=== PATIENT | male | born 1955 | race Caucasian/White ===

== ENCOUNTER → 2017-07-22 | Outpatient (CLI) | payer BC ==
[~2017-07-22] MED LIST: ALBU17AE23 IH; ASPI-84 PO; AZIT-21 PO; BENZ200C3 PO; CEFP250T2 PO; FOLI1TAB24 PO; LORA10CA PO; METH2.5T PO; NF-DICLTB PO; PNT40TEC PO; PRCD5U PO; SUCR1TAB23 PO; TRIA1CAP4 PO
--- NOTE | 2017-07-22 13:26 | Diagnostic Imaging Report ---
EXAMINATION: Left knee radiographs, three views. COMPARISON: None. HISTORY: 61-year-old male, left knee pain. FINDINGS: There is mild patellofemoral compartment joint space loss with small patellofemoral compartment osteophytes. There is no left knee joint effusion. The medial and lateral compartments are not significantly narrowed. There is a well-corticated ossification adjacent to the superior and lateral aspect of the patella compatible with chronic long-standing etiology. There is no identified acute fracture. There is minimal degenerative type enthesopathy at the patellar tendon origin. There is no identified radiopaque foreign body. IMPRESSION: 1. Mild patellofemoral compartment osteoarthritis. 2. No left knee joint effusion or acute bone abnormality. Dictated by: Dictated on workstation # [id number]
== END ==
LOC: RAD 12:47
PROVIDERS: ATTEND Internal Medicine
DX: M17.12 Unilateral primary osteoarthritis, left knee (principal)
CPT/HCPCS: 73562

== ENCOUNTER → 2017-08-11 | Outpatient (CLI) | payer BC ==
--- NOTE | 2017-08-11 09:54 | Diagnostic Imaging Report ---
PROCEDURE: MRI left joint lower extremity with and without contrast. TECHNIQUE: Multiplanar, multisequence pre and post contrast-enhanced MRI of the left lower extremity was accomplished. INDICATION: Knee pain There are no previous MRI examinations available for comparison. The plain film examination of the left knee performed on 07/22/2017 failed to show any sign of an acute bony abnormality. On the coronal STIR series of this exam there is diffusely increased signal throughout the medial femoral condyle. This does suggest extensive bone edema. There is also a small area of altered signal in the immediate subarticular region of the midportion of the medial femoral condyle. I suspect that this is an osteochondral injury. Furthermore the posterior horn and midportion of the medial meniscus have an irregular appearance consistent with a tear. The medial collateral ligament itself is also somewhat indistinct and may be partially torn. For the most part however the MCL appears to be intact. There is also soft tissue edema about the medial aspect of the medial femoral condyle. There is a small joint effusion as well. There are areas of altered signal within the anterior and posterior horns of the lateral meniscus. These signal abnormalities involving the anterior horn of the lateral meniscus is in close proximity to the inferior articular surface of the meniscus and I suspect that this does represent a tear. There is no clear evidence for an articular surface ter of the posterior horn however. The anterior and posterior cruciate ligaments, quadriceps and infrapatellar tendons, the fibular collateral ligament, the biceps femoris tendon and the iliotibial band are intact. There is no sign of a tear of either the medial or lateral retinaculum. The knee joint is fairly well-maintained. There is a small joint effusion present. There is also a 7 MM area diminished signal within the fluid near the attachment of the low lateral retinaculum to the patella. I suspect that this is a small loose body. IMPRESSION: 1. There is a prominent area of bone edema involving the medial femoral condyle. Most likely this is related to a subacute osteochondral injury. 2. The midportion of the posterior horn of the medial meniscus are torn and there appears to a small partial tear of the medial collateral ligament. There is also generalized soft tissue edema in this area. 3. The anterior horn of the lateral meniscus is also torn. 4. The other major ligaments and tendons are intact. 5. There is a small joint effusion present and there is a 6 MM loose body in the lateral aspect of the knee joint. Dictated by: Dictated on workstation # [id number]
== END ==
LOC: RAD 08:09
PROVIDERS: ATTEND Internal Medicine
DX: S83.242A Other tear of medial meniscus, current injury, left knee, initial encounter (principal); S83.282A Other tear of lateral meniscus, current injury, left knee, initial encounter; M17.12 Unilateral primary osteoarthritis, left knee
CPT/HCPCS: 73723

== ENCOUNTER → 2019-03-18 | Outpatient (CLI) | payer MEDICARE, OTHER ==
--- NOTE | 2019-03-18 13:05 | Diagnostic Imaging Report ---
INDICATION: Right hip pain COMPARISON: None. FINDINGS: 2 views of the right hip were obtained and show no fractures, dislocations, or other acute bony abnormalities. Joint spaces are well maintained throughout. The soft tissues appear unremarkable. No radiopaque foreign bodies are identified. IMPRESSION: Unremarkable radiographic exam of the right hip. Dictated by: Dictated on workstation # [id number]
== END ==
LOC: RAD 12:30
PROVIDERS: ATTEND Internal Medicine
DX: M25.551 Pain in right hip (principal)
CPT/HCPCS: 73502

== ENCOUNTER → 2019-05-27 | Outpatient (CLI) | payer MEDICARE, OTHER ==
[~2019-05-27] MED LIST changes: +ASPI-586 PO; +CLOB15CR2 TP; +DICL75TA2 PO; +INDO50CA11 PO; +LORA10TA7 PO; +LOSA50TA63 PO; +PANT40TA3 PO; +POLY17PO6 PO; +SILD20TA14 PO; +ZOLP10TA PO
--- NOTE | 2019-05-27 10:52 | Diagnostic Imaging Report ---
PROCEDURE: MR imaging of the brain without contrast. TECHNIQUE: Multiplanar, multisequence MR imaging of the brain was performed without contrast. INDICATION: Headaches. FINDINGS: The ventricles and sulci are within normal limits. There is mild periventricular and subcortical white matter signal abnormality consistent with chronic microvascular ischemia. No diffusion restriction is seen to suggest acute ischemia. The normal expected flow-voids within the carotid siphons are seen. No acute intra-axial or extra-axial hemorrhage is detected. Corpus callosum is unremarkable. Sella and parasellar structures are unremarkable. There does appear to be some mucosal thickening and fluid in the right maxillary sinus. IMPRESSION: 1. Changes of chronic microvascular ischemia. No acute intracranial process is detected. 2. Right maxillary sinus mucosal disease. Dictated by: Dictated on workstation # [id number]
== END ==
LOC: RAD 09:08
PROVIDERS: ATTEND Internal Medicine
DX: I67.82 Cerebral ischemia (principal); J32.0 Chronic maxillary sinusitis; G47.33 Obstructive sleep apnea (adult) (pediatric); I10 Essential (primary) hypertension
CPT/HCPCS: 70551

== ENCOUNTER 2019-06-01 05:31 | Outpatient (CLI) | payer MEDICARE, OTHER ==
[~2019-06-01] VITALS: Ht 165 cm; Wt 97.7 kg
[~2019-06-01 05:31] MED LIST changes: -ASPI-586 PO; -CLOB15CR2 TP; -DICL75TA2 PO; -INDO50CA11 PO; -LORA10TA7 PO; -LOSA50TA63 PO; -PANT40TA3 PO; -POLY17PO6 PO; -SILD20TA14 PO; -ZOLP10TA PO
[2019-06-01] MEDS ORDERED: CEFP250T2 PO (10:58)
[2019-06-01] MEDS ORDERED: DICL75TA2 PO (10:58)
[2019-06-01] MEDS ORDERED: LORA10TA7 PO (10:58)
[2019-06-01] MEDS ORDERED: ZOLP10TA PO (10:58)
[2019-06-01] MEDS ORDERED: PANT40TA3 PO (10:58)
[2019-06-01] MEDS ORDERED: LOSA50TA63 PO (10:58)
[2019-06-01] MEDS ORDERED: ASPI-586 PO (10:58)
[2019-06-01] MEDS ORDERED: INDO50CA11 PO (10:58)
[2019-06-01] MEDS ORDERED: SILD20TA14 PO (10:58)
[2019-06-01] MEDS ORDERED: CLOB15CR2 TP (10:58)
[2019-06-01] MEDS ORDERED: POLY17PO6 PO (11:03)
== END 2019-06-01 11:08 | disposition home or self-care (01) ==
LOC: PREOP 05:31
PROVIDERS: ATTEND Surgery
DX: Z01.818 Encounter for other preprocedural examination (principal)

== ENCOUNTER 2019-06-08 08:44 | Day surgery (SDC) | payer MEDICARE, OTHER ==
[2019-06-08] VITALS (9 sets, daily range): BP systolic 115–152; BP diastolic 59–86
[~2019-06-08] VITALS: Ht 165 cm; Wt 97.7 kg
[~2019-06-08 08:44] MED LIST changes: +ASPI-586 PO; +CLOB15CR2 TP; +DICL75TA2 PO; +INDO50CA11 PO; +LORA10TA7 PO; +LOSA50TA63 PO; +PANT40TA3 PO; +POLY17PO6 PO; +SILD20TA14 PO; +ZOLP10TA PO
[2019-06-08] MEDS ORDERED: LACTATED RINGERS 1,000 ML IV STA (08:53)
[2019-06-08] MEDS ORDERED: LACTATED RINGERS 1,000 ML IV ONE (08:54)
[2019-06-08] MEDS ORDERED: PROPOFOL INJECTION 50 ML IV ONE (08:54)
[2019-06-08] MEDS ORDERED: MIDAZOLAM 2 MG/2 ML (VERSED) VIAL ONE (08:54)
[2019-06-08] MEDS ORDERED: HURRICAINE EXT TUBE (BENZOCAINE) XX PRN (09:00)
--- NOTE | 2019-06-08 10:18 | Progress Note-Post Operative ---
Post-Operative Progess Note Surgeon (s)/Software Tester (s) Surgeon CESAR DE GUZMAN DO Software Tester: na Pre-Operative Diagnosis dysphagia, history of polyps Post-Operative Diagnosis minimal hiatal hernia, barrets esophagus, diverticulosis Procedure & Operative Findings Date of Procedure 06/08/19 Procedure Performed/Findings EGD with biopsies and colonoscopy Anesthesia Type per practicing md anesthesiologist Estimated Blood Loss Estimated blood loss (mL): none Specimens/Packing Specimens Removed biopsies of antrum and GE junction CESAR DE GUZMAN DO Jun 08, 2019 10:18 POS
[2019-06-08] MEDS ORDERED: SUCR1TAB36 PO (10:19)
--- NOTE | 2019-06-08 10:22 | Discharge Inst-Simple/Standard ---
Discharge Inst-Standard Discharge Medications New, Converted or Re-Newed RX: Transmitted to Pharmacy Patient Instructions/Follow Up Plan of Care/Instructions/FU: follow up in clinic in 2 weeks to review pathology report. If any concerns before then, will be seen at that time. Repeat colonoscopy in 5 years. Activity as Tolerated: Yes Discharge Diet: Regular Diet CESAR DE GUZMAN DO Jun 08, 2019 10:22 POS
--- NOTE | 2019-06-08 15:43 | OPERATIVE REPORT ---
DATE OF SERVICE: 06/08/2019 PREOPERATIVE DIAGNOSIS: Dysphagia, history of colon polyps. POSTOPERATIVE DIAGNOSIS: Very minimal hiatal hernia, suspect Caceres's esophagus, diverticulosis. PROCEDURE: EGD with biopsies and colonoscopy. SURGEON: Cesar Tamez DO ANESTHESIA: Per FACILITIES LOCATOR. ESTIMATED BLOOD LOSS: None. COMPLICATIONS: None. INDICATIONS: The patient is a 63-year-old male with some dysphagia and history of colon polyps. He understands risks and benefits of procedure and wished to proceed with procedure. Consent was signed in the chart. DESCRIPTION OF PROCEDURE: The patient was taken to the endoscopy suite, placed in left lateral recumbent position. Timeout was performed. Scope was inserted in mouth, down the esophagus, stomach and into the duodenum without difficulty. There were no polyps, mass, ulceration of the duodenum. Scope was slowly retracted back into the stomach where it was further insufflated. Some erythematous changes present. Biopsy of the antrum was obtained. Scope was retroflexed noting evidence of previous wrap very minimal hiatal hernia. No other pathology noted. Scope was returned to its normal position, slowly withdrawn to the distal esophagus, which has appearance of some Caceres's esophagus. Multiple biopsies were obtained of this area. No polyps, masses or ulcerations. Scope was then slowly retracted back slowly until completely removed, noting no other pathology. The patient tolerated procedure well without any complications. Digital rectal exam was then performed. There were no palpable polyps, masses or ulcerations. Scope was inserted into the rectum and advanced all the way to cecum with minimal difficulty. Prep was adequate. Scope was slowly retracted back. No polyps, masses or ulcerations in the cecum, ascending, transverse and descending colon. In the sigmoid colon, some minimal to moderate diverticulosis present. Scope was then continuously slowly retracted back into the rectum, where it was also retroflexed noting no other pathology. Scope was returned to its normal position, slowly withdrawn until completely removed. The patient tolerated procedure well without any complications, taken to recovery room in stable condition. RECOMMENDATIONS: The patient will need a repeat colonoscopy in 5 years. Any issues before that be seen at that time. Recommended high fiber diet due to diverticulosis. The patient with appearance of some Caceres's esophagus. Multiple biopsies were obtained. We will plan awaiting biopsy results. We will also keep him on pantoprazole and add Carafate 1 gram four times a day. The patient will follow up in the office in 2 weeks to see how he is doing and review pathology. Job ID: [id number] DocumentID: [id number] Dictated Date: 06/08/2019 10:21:48 Slasher Tender Date: 06/08/2019 15:42:16 Dictated By: CESAR TAMEZ DO
--- NOTE | 2019-06-10 15:00 | Anesthesia-General Post-Op ---
MAC Patient Condition Mental Status/LOC: Same as Preop Cardiovascular: Satisfactory Nausea/Vomiting: Absent Respiratory: Satisfactory Pain: Controlled Complications: Absent Post Op Complications Complications None Follow Up Care/Instructions Patient Instructions None needed. Anesthesiology Discharge Order Discharge Order late entry form 06/08/19 at 1205: Patient is doing well, no complaints, stable vital signs, no apparent adverse anesthesia problems. No complications reported per nursing. RANDEE CIFUENTES CRNA Jun 10, 2019 15:00 POS
--- OUTSIDE RECORDS SUMMARY | 2019-07-03 06:33 | XMS REPORT | Encounter Summary ---
Author Author [facility] Organization [facility] Address Unknown Phone Unavailable Care Team Providers Care Casing Blower Name Role Phone Alex Grewal MD PCP Reason for Visit * Reason Comments General Question Encounter Details Care Team Description Date Type Department Donovan Ocampo MD [address] [address] General Question 03/24/2019 Telephone [facility] [address] [place] [address] Social History Date Tobacco Use Types Packs/Day Years Used Former Smoker Smokeless Tobacco: Former User Sex Assigned at Date Recorded Not on file Industry Job Start Date Occupation Not on file Not on file Not on file Travel End Travel History Travel Start No recent travel history available. documented as of this encounter Miscellaneous Notes * Telephone Encounter - Rosa Villatoro COA - 03/24/2019 6:03 PM CDT Spoke to pt. Understands results. No further action, sb * Telephone Encounter - Rosa Villatoro COA - 03/24/2019 6:03 PM CDT ----- Message from Donovan Ocampo MD sent at 03/24/2019 3:44 PM CDT ----- Please let know benign documented in this encounter Plan of Treatment Not on filedocumented as of this encounter Visit Diagnoses Not on filedocumented in this encounter
--- OUTSIDE RECORDS SUMMARY | 2019-07-03 06:33 | XMS REPORT | Clinical Summary ---
Author Author [facility] Organization [facility] Address Unknown Phone Unavailable Care Team Providers Care Lens Grinder Rough Name Role Phone Alex Grewal MD PCP Source Comments Some departments are not documenting in the electronic medical record. If you d o not see the information that you expected, contact Release of Information in [facility] [employer] Information Management department at [phone] for further assistan ce in locating additional records.[facility] Allergies No Known Allergies Medications End Date Status Medication Sig Dispensed Refills Start Date Active aspirin EC 81 mg tablet DAILY 0 1 Active triamterene-hydrochloroth DAILY 0 10/05 iazide (DYAZIDE) 37.5-25 1 mg capsule Active zolpidem (AMBIEN) 10 mg TK 1 T PO HS 0 tablet PRN 9 Active loratadine (CLARITIN) 10 DAILY 0 10/21 mg tablet 1 Active diclofenac-misoprostol TWICE A DAY 0 01 (ARTHROTEC 75) 75-200 1 mg-mcg tablet Active erythromycin (ROMYCIN) Apply 3.5 g 1 ophthalmic ointment one-half inch 9 to right eye as directed twice daily. Active Problems Problem Noted Date Eyelid lesion 03/12/2019 Social History Date Tobacco Use Types Packs/Day Years Used Former Smoker Smokeless Tobacco: Former User Sex Assigned at Date Recorded Not on file Industry Job Start Date Occupation Not on file Not on file Not on file Travel End Travel History Travel Start No recent travel history available. Last Filed Vital Signs Reading Time Taken Comments Vital Sign 114/70 03/12/2019 8:58 AM CDT Blood Pressure 98 03/12/2019 8:58 AM CDT Pulse - - Temperature - - Respiratory Rate - - Oxygen Saturation - - Inhaled Oxygen Concentration 95.3 kg (210 lb) 03/12/2019 8:58 AM CDT Weight 165.1 cm (5' 5") 03/12/2019 8:58 AM CDT Height 34.95 03/12/2019 8:58 AM CDT Body Mass Index Plan of Treatment Health Maintenance Due Date Last Done Comments HEPATITIS C SCREENING 1955 MEDICARE ANNUAL WELLNESS 1955 VISIT DTAP/TDAP VACCINES (1 - 1964 Tdap) HIV SCREENING 1968 PHYSICAL (COMPREHENSIVE) 12/26/1971 EXAM COLORECTAL CANCER 12/26/2003 SCREENING SHINGLES RECOMBINANT 12/26/2003 VACCINE (1 of 2) ABDOMINAL AORTIC ANEURYSM 2018 SCREENING PNEUMONIA (PCV13/PPSV23) 2018 VACCINES (1 of 2 - PCV13) INFLUENZA VACCINE 02/04/2019 Results Not on filefrom Last 3 Months Insurance Type Payer Benefit Subscriber ID Effective Phone Address Plan / Dates Group Medicare MEDICARE MEDICARE xxxxxxxxxxx 2018-P PART A AND resent B HMO HUMANA HUMANA xxxxxxxxx 2018-P SUPPLEMENT [place] [id number] (Home) RADHA MEJIA [id number] Advance Directives 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
--- OUTSIDE RECORDS SUMMARY | 2019-07-03 06:33 | XMS REPORT | Encounter Summary ---
Author Author [facility] Organization [facility] Address Unknown Phone Unavailable Care Team Providers Care Plow Holder Name Role Phone Alex Grewal MD PCP Reason for Visit * Reason Comments Eye Problem pt present today for excisi on lid lesion RLL Encounter Details Care Team Description Date Type Department Donovan Daniels MD [address] [address] Eyelid lesion (Primary Dx) 03/22/2019 Procedure visit [facility] [address] [place] [address] Social History Date Tobacco Use Types Packs/Day Years Used Former Smoker Smokeless Tobacco: Former User Sex Assigned at Date Recorded Not on file Industry Job Start Date Occupation Not on file Not on file Not on file Travel End Travel History Travel Start No recent travel history available. documented as of this encounter Progress Notes * Donovan Daniels MD - 03/22/2019 12:45 PM CDT There is no height or weight on file to calculate BMI. EXCISE LESION EYELID, OD-RIGHT EYE Interpretation / Result: Ophthalmology Post-Procedure Note Pre-Op Dx: RLL margin lesion Post-Op Dx: Same Procedure Performed: RLL margin excision Primary Surgeon: Donovan Daniels MD Artisan Plasterer: NOne Anesthesia: Lidocaine w epi Estimated Blood Loss: Minimal Specimen: yes Findings: Same Complications: None Condition: Stable Donovan Daniels MD Assessment and Plan: E prieto Will call with results documented in this encounter Plan of Treatment Order Schedule Name Type Priority Associated Diag noses Expected: 03/22/2019, Expires: 0 PATHOLOGY SURGICAL < 5 Pathology Routine Eyelid lesion SPECIMENS documented as of this encounter Procedures Comments Procedure Name Priority Date/Time Associated Diag nosis EXCISE LESION EYELID, Routine 03/22/2019 Eyelid l esion OD-RIGHT EYE 3:27 PM CDT HC LVL IV SRG PTH, GROSS 03/22/2019 & MICRO 2:53 PM CDT documented in this encounter Results * EXCISE LESION EYELID, OD-RIGHT EYE (03/22/2019 3:27 PM CDT) Specimen Narrative Performed At [facility] Interpretation / Result: Ophthalmology Post-Procedure Note Pre-Op Dx: RLL margin lesion Post-Op Dx: Same Procedure Performed: RLL margin excisio n Primary Surgeon: Donovan Daniels MD Artisan Plasterer: NOne Anesthesia: Lidocaine w epi Estimated Blood Loss: Minimal Specimen: yes Findings: Same Complications: None Condition: Stable Donovan Daniels MD Performing Organization Address City/State/[facility] Ph one Number IN CLINIC * SURGICAL PATHOLOGY (03/22/2019 2:53 PM CDT) PATHOLOGY [email or web address] Department of Pathology and Laboratory Medicine [address] [place] [id number] Surgical Pathology Office: [phone] SURGICAL PATHOLOGY REPORT NAME: JUNIOR BLACK SURG PATH #: [id number] MR #: [id number] SPECIMEN CLASS: SR BILLING #: [id number] ALT ID #: LOCATION: [facility] DATE OF PROCEDURE: 03/22/2019 AGE: 63 SEX: M DATE RECEIVED: 03/23/2019 : 1955 TIME RECEIVED: 08:32 PHYSICIAN: DONOVAN DANIELS DATE OF REPORT: 03/24/2019 COPY TO: DATE OF PRINTIN03/24/2019 ############################## ############################## ############ Final Diagnosis: A. Right lower lid: -- Hidrocystoma Attestation: By this signature, I attest that I have personally formulated the final interpretation expressed in this report and that the above diagnosis is based upon my examination of the slides and/or other material indicated in this report. +++ +++ gf/03/24/2019 ############################## ############################## ############ Material Received: A: right lower lid lesion History: A. Eyelid lesion. Gross Description: A. Labeled "right lower lid" is a 0.5 x 0.3 x 0.1 cm shave, bisected, all in A1. () /03/23/2019 Specimen Performing Organization Address City/State/Zipcode Ph one Number [facility] [address] [place] [address] documented in this encounter Visit Diagnoses Diagnosis Eyelid lesion - Primary Unspecified disorder of eyelid documented in this encounter
--- OUTSIDE RECORDS SUMMARY | 2019-07-03 06:34 | XMS REPORT | Continuity of Care Document ---
Author Organization Unknown Address Unknown Phone Unavailable Allergies Active Description Code Type Severity Reaction Onset Reported/Identified Relationship to Patient Clinical Status Yes NO KNOWN DRUG ALLERGIES UNKNOWN NO KNOWN DRUG ALLERG Yes No Known Drug Allergies [id number] Drug Allergy Unknown N/A 06/01/2019 Medications Medication Packaging Start Date St op Date Route Dosage Sig METHYLPREDNISOLONE VIAL INJ 40 MG/CC (DEPO-MEDROL VIAL) MG 10/18/2018 10/18/2018 ONCE&1935 AZITHROMYCIN TAB 500 MG (ZITHROMAX) MG 10/18/2018 10/18/2018 ONCE&1940 DEXAMETHASONE VIAL INJ 4 MG/CC (DECADRON V IAL) MG 10/18/2018 10/25/2018 Q6H&0600,1200,1800,2359 Problems Date Dx Coded Attending Type Code Diagnosis Diagnosed By 10/21/2010 Ot 490 10/21/2010 Ot 786.2 02/18/2011 Ot 562.10 02/18/2011 Ot V58.66 02/18/2011 Ot V58.69 02/18/2011 Ot V76.51 08/01/2014 Ot V72.84 08/02/2014 CESAR DE GUZMAN DO Ot 530. 10 ESOPHAGITIS NOS 08/02/2014 CESAR DE GUZMAN DO Ot 530. 20 ULCER OF ESOPHAGUS W/O BLEEDING 08/02/2014 CESAR DE GUZMAN DO Ot 535. 50 UNSP GASTRITIS GASTRODUODENITIS W/O ME 08/02/2014 CESAR DE GUZMAN DO Ot 535. 60 DUODENITIS, WITHOUT MENTION OF HEMORRHAG 08/02/2014 CESAR DE GUZMAN DO Ot 553. 3 DIAPHRAGMATIC HERNIA 08/11/2014 Ot 518.89 08/11/2014 Ot 786.2 08/11/2014 Ot 786.2 08/11/2014 CHANDLER MELENDEZ, KATERYNA Alvarado Ot 593.9 08/11/2014 Ot V72.84 10/07/2014 Ot 518.89 10/07/2014 Ot 786.2 10/07/2014 Ot 786.2 10/07/2014 CHANDLER MELENDEZ, KATERYNA Alvarado Ot 593.9 10/07/2014 Ot V72.84 10/07/2014 DEFFENBAUGH DO, BIRGIT D Ot 240.9 10/07/2014 DEFFENBAUGH DO, BIRGIT D Ot 530.81 10/07/2014 DEFFENBAUGH DO, BIRGIT D Ot 789.00 10/07/2014 DEFFENBAUGH DO, BIRGIT D Ot 240.9 10/07/2014 DEFFENBAUGH DO, BIRGIT D Ot 530.81 10/07/2014 DEFFENBAUGH DO, BIRGIT D Ot 786.50 10/07/2014 DEFFENBAUGH DO, BIRGIT D Ot 789.00 10/07/2014 CHANDLER MELENDEZ, KATERYNA Alvarado Ot 780.60 10/07/2014 CANELO HERCULES DO Ot 48 6 PNEUMONIA, ORGANISM NOS 10/07/2014 DELISACANELO THAPA DO Ot 780.60 FEVER, UNSPECIFIED 10/12/2014 Ot 518.89 10/12/2014 Ot 786.2 10/12/2014 Ot 786.2 10/12/2014 CHANDLER MELENDEZ, KATERYNA Alvarado Ot 593.9 10/12/2014 Ot V72.84 10/12/2014 DEFFENBAUGH DO, BIRGIT D Ot 240.9 10/12/2014 DEFFENBAUGH DO, BIRGIT D Ot 530.81 10/12/2014 DEFFENBAUGH DO, BIRGIT D Ot 789.00 10/12/2014 DEFFENBAUGH DO, BIRGIT D Ot 240.9 10/12/2014 DEFFENBAUGH DO, BIRGIT D Ot 530.81 10/12/2014 DEFFENBAUGH DO, BIRGIT D Ot 786.50 10/12/2014 DEFFENBAUGH DO, BIRGIT D Ot 789.00 10/12/2014 KATERYNA ARTEAGA MD Ot 780.60 10/14/2014 DEFFENBAUGH DO, BIRGIT D Ot 240.9 10/14/2014 DEFFENBAUGH DO, BIRGIT D Ot 530.81 10/14/2014 DEFFENBAUGH DO, BIRGIT D Ot 789.00 10/14/2014 DEFFENBAUGH DO, BIRGIT D Ot 240.9 10/14/2014 DEFFENBAUGH DO, BIRGIT D Ot 530.81 10/14/2014 DEFFENBAUGH DO, BIRGIT D Ot 786.50 10/14/2014 DEFFENBAUGH DO, BIRGIT D Ot 789.00 10/17/2014 CHANDLER MELENDEZ, KATERYNA Alvarado Ot 780.60 10/26/2014 Ot V72.84 10/31/2014 CHANDLER MELENDEZ, KATERYNA Alvarado Ot 959.7 10/31/2014 CHANDLER MELENDEZ, KATERYNA Alvarado Ot E000.8 10/31/2014 CHANDLER MELENDEZ, KATERYNA Alvarado Ot E849.0 10/31/2014 CHANDLER MELENDEZ, KATERYNA Alvarado Ot E928.9 02/18/2015 Ot 786.2 02/18/2015 CHANDLER MELENDEZ, KATERYNA Alvarado Ot 593.9 02/18/2015 Ot V72.84 02/18/2015 DEFFENBALUNA DOKATIUSKARY D Ot 240.9 02/18/2015 DEFFENBALUNA DO BIRGIT D Ot 530.81 02/18/2015 DEFFENBALUNA DO BIRGIT D Ot 789.00 02/18/2015 DEFFENBAUGH DO BIRGIT D Ot 240.9 02/18/2015 DEFFENBAUGH DO BIRGIT D Ot 530.81 02/18/2015 DEFFENBAUGH DO BIRGIT D Ot 786.50 02/18/2015 DEFFENBAUGH DO BIRGIT D Ot 789.00 02/18/2015 CHANDLER MELENDEZ, KATERYNA Alvarado Ot 780.60 02/18/2015 CHANDLER MELENDEZ, KATERYNA Alvarado Ot 959.7 02/18/2015 KATERYNA ARTEAGA MD Ot E000.8 02/18/2015 CHANDLER MELENDEZ, KATERYNA Alvarado Ot E849.0 02/18/2015 KATERYNA ARTEAGA MD Ot E928.9 02/18/2015 CANELO AMARO DO Ot 786.50 02/23/2015 CANELO AMARO DO Ot 786.50 05/05/2015 Ot 786.2 05/05/2015 KATERYNA ARTEAGA MD Ot 593.9 05/05/2015 Ot V72.84 05/05/2015 DEFFENBABIRGIT CARRASCO DO D Ot 240.9 05/05/2015 DEFFENBAKATIUSKA CARRASCO DORY D Ot 530.81 05/05/2015 DEFFENBAUGH DO, BIRGIT D Ot 789.00 05/05/2015 DEFFENBAUGH DO, BIRGIT D Ot 240.9 05/05/2015 DEFFENBAUGH DO, BIRGIT D Ot 530.81 05/05/2015 DEFFENBAUGH DO, BIRGIT D Ot 786.50 05/05/2015 DEFFENBAUGH DO, BIRGIT D Ot 789.00 05/05/2015 CHANDLER MELENDEZ, KATERYNA Alvarado Ot 780.60 05/05/2015 CHANDLER MELENDEZ, KATERYNA Alvarado Ot 959.7 05/05/2015 KATERYNA ARTEAGA MD Ot E000.8 05/05/2015 KATERYNA ARTEAGA MD Ot E849.0 05/05/2015 KATERYNA ARTEAGA MD Ot E928.9 05/05/2015 CANELO AMARO DO Ot 786.50 05/08/2015 CANELO AMARO DO Ot M54.16 05/18/2015 CANELO AMARO DO Ot M54.16 08/08/2015 Ot 786.2 08/08/2015 CHANDLER MELENDEZ, KATERYNA Alvarado Ot 593.9 08/08/2015 Ot V72.84 08/08/2015 DEFFENBAUGH DO, BIRGIT D Ot 240.9 08/08/2015 DEFFENBAUGH DO, BIRGIT D Ot 530.81 08/08/2015 DEFFENBAUGH DO, BIRGIT D Ot 789.00 08/08/2015 DEFFENBAUGH DO, BIRGIT D Ot 240.9 08/08/2015 DEFFENBAUGH DO, BIRGIT D Ot 530.81 08/08/2015 DEFFENBAUGH DO, BIRGIT D Ot 786.50 08/08/2015 DEFFENBAUGH DO, BIRGIT D Ot 789.00 08/08/2015 CHANDLER MELENDEZ, KATERYNA Alvarado Ot 780.60 08/08/2015 KATERYNA ARTEAGA MD Ot 959.7 08/08/2015 KATERYNA ARTEAGA MD Ot E000.8 08/08/2015 CHANDLER MELENDEZ, KATERYNA Alvarado Ot E849.0 08/08/2015 KATERYNA ARTEAGA MD Ot E928.9 08/08/2015 CANELO AMARO DO Ot 786.50 08/08/2015 CANELO AMARO DO Ot M54.16 04/08/2016 CANELO AMARO DO Ot M47.26 OTHER SPONDYLOSIS WITH RADICULOPATHY, JAYCOB 04/11/2016 CANELO AMARO DO Ot M47.26 OTHER SPONDYLOSIS WITH RADICULOPATHY, JAYCOB 04/17/2016 CANELO AMARO DO Ot M47.26 OTHER SPONDYLOSIS WITH RADICULOPATHY, JAYCOB 08/16/2016 Ot 786.2 COUGH 08/16/2016 KATERYNA ARTEAGA MD Ot 593.9 RENAL URETERAL DIS NOS 08/16/2016 Ot V72.84 EXA M PRE- OPERATIVE NOS 08/16/2016 DEFABHAYBABIRGIT CARRASCO DO Ot 240.9 GOITER NOS 08/16/2016 DAWITBABIRGIT CARRASCO DO Ot 530.81 ESOPHAGEAL REFLUX 08/16/2016 DAWITBABIRGIT CARRASCO DO Ot 789.00 ABDOMINAL PAIN, UNSPECIFIED SITE 08/16/2016 BIRGIT HARLEY DO Ot 240.9 GOITER NOS 08/16/2016 DEFFENBABIRGIT CARRASCO DO Ot 530.81 ESOPHAGEAL REFLUX 08/16/2016 DAWITBABIRGIT CARRASCO DO Ot 786.50 CHEST PAIN NOS 08/16/2016 DAWITBABIRGIT CARRASCO DO Ot 789.00 ABDOMINAL PAIN, UNSPECIFIED SITE 08/16/2016 KATERYNA ARTEAGA MD Ot 780.60 FEVER, UNSPECIFIED 08/16/2016 KATERYNA ARTEAGA MD Ot 959.7 LOWER LEG INJURY NOS 08/16/2016 KATERYNA ARTEAGA MD Ot E000.8 OTHER EXTERNAL CAUSE STATUS 08/16/2016 KATERYNA ARTEAGA MD Ot E849.0 ACCIDENT IN HOME 08/16/2016 KATERYNA ARTEAGA MD Ot E928.9 ACCIDENT NOS 08/16/2016 CANELO AMARO DO Ot 786.50 CHEST PAIN NOS 08/16/2016 CANELO AMARO DO Ot M54.16 RADICULOPATHY, LUMBAR REGION 08/16/2016 CANELO AMARO DO Ot M47.26 OTHER SPONDYLOSIS WITH RADICULOPATHY, JAYCOB 07/22/2017 SANDNESS MD, KATERYNA M Ot 593.9 RENAL URETERAL DIS NOS 07/22/2017 Ot V72.84 EXA M PRE- OPERATIVE NOS 07/22/2017 DEFFENBAUGH DOKATIUSKARY D Ot 240.9 GOITER NOS 07/22/2017 DEFFENBAUGH DO, BIRGIT D Ot 530.81 ESOPHAGEAL REFLUX 07/22/2017 DEFFENBAUGH DO, BIRGIT D Ot 789.00 ABDOMINAL PAIN, UNSPECIFIED SITE 07/22/2017 DEFFENBAUGH DO, BIRGIT D Ot 240.9 GOITER NOS 07/22/2017 DEFFENBAUGH DO, BIRGIT D Ot 530.81 ESOPHAGEAL REFLUX 07/22/2017 DEFFENBAUGH DO, BIRGIT D Ot 786.50 CHEST PAIN NOS 07/22/2017 DEFFENBAUGH DO, BIRGIT D Ot 789.00 ABDOMINAL PAIN, UNSPECIFIED SITE 07/22/2017 CHANDLER MELENDEZ, KATERYNA Alvarado Ot 780.60 FEVER, UNSPECIFIED 07/22/2017 KATERYNA ARTEAGA MD Ot 959.7 LOWER LEG INJURY NOS 07/22/2017 KATERYNA ARTEAGA MD Ot E000.8 OTHER EXTERNAL CAUSE STATUS 07/22/2017 KATERYNA ARTEAGA MD Ot E849.0 ACCIDENT IN HOME 07/22/2017 KATERYNA ARTEAGA MD Ot E928.9 ACCIDENT NOS 07/22/2017 CANELO AMARO DO Ot 786.50 CHEST PAIN NOS 07/22/2017 CANELO AMARO DO Ot M54.16 RADICULOPATHY, LUMBAR REGION 07/22/2017 CANELO AMARO DO Ot M47.26 OTHER SPONDYLOSIS WITH RADICULOPATHY, JAYCOB 07/23/2017 Ot M17.12 UNI LATERAL PRIMARY OSTEOARTHRITIS, LEFT 07/30/2017 Ot M17.12 UNI LATERAL PRIMARY OSTEOARTHRITIS, LEFT 08/11/2017 CHANDLER MELENDEZ, KATERYNA Alvarado Ot 593.9 RENAL URETERAL DIS NOS 08/11/2017 Ot V72.84 EXA M PRE- OPERATIVE NOS 08/11/2017 DEFFENBAUGH DO, BIRGIT D Ot 240.9 GOITER NOS 08/11/2017 DEFFENBAUGH DO, BIRGIT D Ot 530.81 ESOPHAGEAL REFLUX 08/11/2017 DEFFENBALUNA DOKATIUSKARY D Ot 789.00 ABDOMINAL PAIN, UNSPECIFIED SITE 08/11/2017 DEFFENBAUGH DO, BIRGIT D Ot 240.9 GOITER NOS 08/11/2017 BIRGIT HARLEY DO Ot 530.81 ESOPHAGEAL REFLUX 08/11/2017 BIRGIT HRALEY DO Ot 786.50 CHEST PAIN NOS 08/11/2017 BIRGIT HARLEY DO Ot 789.00 ABDOMINAL PAIN, UNSPECIFIED SITE 08/11/2017 KATERYNA ARTEAGA MD Ot 780.60 FEVER, UNSPECIFIED 08/11/2017 KATERYNA RATEAGA MD Ot 959.7 LOWER LEG INJURY NOS 08/11/2017 KATERYNA ARTEAGA MD Ot E000.8 OTHER EXTERNAL CAUSE STATUS 08/11/2017 KATERYNA ARTEAGA MD Ot E849.0 ACCIDENT IN HOME 08/11/2017 KATERYNA ARTEAGA MD Ot E928.9 ACCIDENT NOS 08/11/2017 CANELO AMARO DO Ot 786.50 CHEST PAIN NOS 08/11/2017 CANELO AMARO DO Ot M54.16 RADICULOPATHY, LUMBAR REGION 08/11/2017 CANELO AMARO DO Ot M47.26 OTHER SPONDYLOSIS WITH RADICULOPATHY, JAYCOB 08/11/2017 Ot M17.12 UNI LATERAL PRIMARY OSTEOARTHRITIS, LEFT 08/12/2017 CANELO AMARO DO Ot M17.12 UNILATERAL PRIMARY OSTEOARTHRITIS, LEFT 08/12/2017 CANELO AMARO DO Ot S83.242A OTH TEAR OF MEDIAL MENISCUS, CURRENT INJ 08/12/2017 CANELO AMARO DO Ot S83.282A OTH TEAR OF LAT MENSC, CURRENT INJURY, L 08/27/2017 CANELO AMARO DO Ot M17.12 UNILATERAL PRIMARY OSTEOARTHRITIS, LEFT 08/27/2017 CANELO AMARO DO Ot S83.242A OTH TEAR OF MEDIAL MENISCUS, CURRENT INJ 08/27/2017 CANELO AMARO DO Ot S83.282A OTH TEAR OF LAT MENSC, CURRENT INJURY, L 08/28/2017 KATERYNA ARTEAGA MD Ot 593.9 RENAL URETERAL DIS NOS 08/28/2017 Ot V72.84 EXA M PRE- OPERATIVE NOS 08/28/2017 BIRGIT HARLEY DO Ot 240.9 GOITER NOS 08/28/2017 BIRGIT HARLEY DO Ot 530.81 ESOPHAGEAL REFLUX 08/28/2017 DAWITBABIRGIT CARRASCO DO Ot 789.00 ABDOMINAL PAIN, UNSPECIFIED SITE 08/28/2017 DAWITBABIRGIT CARRASCO DO Ot 240.9 GOITER NOS 08/28/2017 DAGOFENBALUNA DOBIRGIT Ot 530.81 ESOPHAGEAL REFLUX 08/28/2017 DAWITBABIRGIT CARRASCO DO Ot 786.50 CHEST PAIN NOS 08/28/2017 BIRGIT HARLEY DO Ot 789.00 ABDOMINAL PAIN, UNSPECIFIED SITE 08/28/2017 CHANDLER MELENDEZ, KATERYNA Alvarado Ot 780.60 FEVER, UNSPECIFIED 08/28/2017 CHANDLER MELENDEZ, KATERYNA Alvarado Ot 959.7 LOWER LEG INJURY NOS 08/28/2017 KATERYNA ARTEAGA MD Ot E000.8 OTHER EXTERNAL CAUSE STATUS 08/28/2017 CHANDLER MELENDEZ, KATERYNA Alvarado Ot E849.0 ACCIDENT IN HOME 08/28/2017 KATERYNA ARTEAGA MD Ot E928.9 ACCIDENT NOS 08/28/2017 CANELO AMARO DO Ot 786.50 CHEST PAIN NOS 08/28/2017 CANELO AMARO DO Ot M54.16 RADICULOPATHY, LUMBAR REGION 08/28/2017 CANELO AMARO DO Ot M47.26 OTHER SPONDYLOSIS WITH RADICULOPATHY, JAYCOB 08/28/2017 Ot M17.12 UNI LATERAL PRIMARY OSTEOARTHRITIS, LEFT 08/28/2017 CANELO AMARO DO Ot M17.12 UNILATERAL PRIMARY OSTEOARTHRITIS, LEFT 08/28/2017 CANELO AMARO DO Ot S83.242A OTH TEAR OF MEDIAL MENISCUS, CURRENT INJ 08/28/2017 CANELO AMARO DO Ot S83.282A OTH TEAR OF LAT MENSC, CURRENT INJURY, L 09/05/2017 CHANDLER MELENDEZ, KATERYNA Alvarado Ot 593.9 RENAL URETERAL DIS NOS 09/05/2017 Ot V72.84 EXA M PRE- OPERATIVE NOS 09/05/2017 BIRGIT HARLEY DO Ot 240.9 GOITER NOS 09/05/2017 DAGOFENBABIRGIT CARRASCO DO Ot 530.81 ESOPHAGEAL REFLUX 09/05/2017 BIRGIT HARLEY DO Ot 789.00 ABDOMINAL PAIN, UNSPECIFIED SITE 09/05/2017 DEFFENBABIRGIT CARRASCO DO Ot 240.9 GOITER NOS 09/05/2017 DEFFENBABIRGIT CARRASCO DO Ot 530.81 ESOPHAGEAL REFLUX 09/05/2017 BIRGIT HARLEY DO Ot 786.50 CHEST PAIN NOS 09/05/2017 DAGOFENBABIRGIT CARRASCO DO Ot 789.00 ABDOMINAL PAIN, UNSPECIFIED SITE 09/05/2017 CHANDLER MELENDEZ, KATERYNA Alvarado Ot 780.60 FEVER, UNSPECIFIED 09/05/2017 CHANDLER MELENDEZ, KATERYNA Alvarado Ot 959.7 LOWER LEG INJURY NOS 09/05/2017 CHANDLER MELENDEZ, KATERYNA Alvarado Ot E000.8 OTHER EXTERNAL CAUSE STATUS 09/05/2017 CHANDLER MELENDEZ, KATERYNA Alvarado Ot E849.0 ACCIDENT IN HOME 09/05/2017 KATERYNA ARTEAGA MD Ot E928.9 ACCIDENT NOS 09/05/2017 CANELO AMARO DO Ot 786.50 CHEST PAIN NOS 09/05/2017 CANELO AMARO DO Ot M54.16 RADICULOPATHY, LUMBAR REGION 09/05/2017 CANELO AMARO DO Ot M47.26 OTHER SPONDYLOSIS WITH RADICULOPATHY, JAYCOB 09/05/2017 Ot M17.12 UNI LATERAL PRIMARY OSTEOARTHRITIS, LEFT 09/05/2017 CANELO AMARO DO Ot M17.12 UNILATERAL PRIMARY OSTEOARTHRITIS, LEFT 09/05/2017 CANELO AMARO DO Ot S83.242A OTH TEAR OF MEDIAL MENISCUS, CURRENT INJ 09/05/2017 CANELO AMARO DO Ot S83.282A OTH TEAR OF LAT MENSC, CURRENT INJURY, L 10/18/2018 LEISURE, LYNIETA W 466.0 ACUTE BRONCHITIS 10/18/2018 LEISURE, LYNIETA W J20.9 ACUTE BRONCHITIS, UNSPECIFIED 03/18/2019 CHANDLER MELENDEZ, KATERYNA Alvarado Ot 593.9 RENAL URETERAL DIS NOS 03/18/2019 Ot V72.84 EXA M PRE- OPERATIVE NOS 03/18/2019 DAWITBABIRGIT CARRASCO DO Ot 240.9 GOITER NOS 03/18/2019 DAGOFENBABIRGIT CARRASCO DO Ot 530.81 ESOPHAGEAL REFLUX 03/18/2019 DEFABHAYBABIRGIT CARRASCO DO Ot 789.00 ABDOMINAL PAIN, UNSPECIFIED SITE 03/18/2019 BIRGIT HARLEY DO Ot 240.9 GOITER NOS 03/18/2019 BIRGIT HARLEY DO Ot 530.81 ESOPHAGEAL REFLUX 03/18/2019 BIRGIT HARLEY DO Ot 786.50 CHEST PAIN NOS 03/18/2019 BIRGIT HARLEY DO Ot 789.00 ABDOMINAL PAIN, UNSPECIFIED SITE 03/18/2019 CHANDLER MELENDEZ, KATERYNA Alvarado Ot 780.60 FEVER, UNSPECIFIED 03/18/2019 CHANDLER MELENDEZ, KATERYNA Alvarado Ot 959.7 LOWER LEG INJURY NOS 03/18/2019 CHANDLER MELENDEZ, KATERYNA Alvarado Ot E000.8 OTHER EXTERNAL CAUSE STATUS 03/18/2019 CHANDLER MELENDEZ, KATERYNA Alvarado Ot E849.0 ACCIDENT IN HOME 03/18/2019 KATERYNA ARTEAGA MD Ot E928.9 ACCIDENT NOS 03/18/2019 CANELO AMARO DO Ot 786.50 CHEST PAIN NOS 03/18/2019 CANELO AMARO DO Ot M54.16 RADICULOPATHY, LUMBAR REGION 03/18/2019 CANELO AMARO DO Ot M47.26 OTHER SPONDYLOSIS WITH RADICULOPATHY, JAYCOB 03/18/2019 Ot M17.12 UNI LATERAL PRIMARY OSTEOARTHRITIS, LEFT 03/18/2019 CANELO AMARO DO Ot M17.12 UNILATERAL PRIMARY OSTEOARTHRITIS, LEFT 03/18/2019 CANELO AMARO DO Ot S83.242A OTH TEAR OF MEDIAL MENISCUS, CURRENT INJ 03/18/2019 CANELO AMARO DO, Ot S83.282A OTH TEAR OF LAT MENSC, CURRENT INJURY, L 03/22/2019 CANELO AMARO DO, Ot M25.551 PAIN IN RIGHT HIP 03/24/2019 CANELO AMARO DO, Ot M25.551 PAIN IN RIGHT HIP 04/08/2019 CANELO AMARO DO, Ot M25.551 PAIN IN RIGHT HIP 04/14/2019 CANELO AMARO DO, Ot M25.551 PAIN IN RIGHT HIP 05/31/2019 CANELO AMARO DO Ot G47.33 OBSTRUCTIVE SLEEP APNEA (ADULT) (PEDIATR 05/31/2019 CANELO AMARO DO Ot I10 ESSENTIAL (PRIMARY) HYPERTENSION 05/31/2019 CANELO AMARO DO Ot I67.82 CEREBRAL ISCHEMIA 05/31/2019 CANELO AMARO DO Ot J32.0 CHRONIC MAXILLARY SINUSITIS 06/02/2019 CANELO AMARO DO, Ot G47.33 OBSTRUCTIVE SLEEP APNEA (ADULT) (PEDIATR 06/02/2019 CANELO AMARO DO Ot I10 ESSENTIAL (PRIMARY) HYPERTENSION 06/02/2019 CANELO AMARO DO Ot I67.82 CEREBRAL ISCHEMIA 06/02/2019 CANELO AMARO DO, Ot J32.0 CHRONIC MAXILLARY SINUSITIS 06/02/2019 CESAR DE GUZMAN DO Ot Z01.818 ENCOUNTER FOR OTHER PREPROCEDURAL EXAMIN 06/07/2019 CESAR DE GUZMAN DO, Ot Z01.818 ENCOUNTER FOR OTHER PREPROCEDURAL EXAMIN 06/08/2019 CESAR DE GUZMAN DO Ot E66. 9 OBESITY, UNSPECIFIED 06/08/2019 CESAR DE GUZMAN DO Ot G43.909 MIGRAINE, UNSP, NOT INTRACTABLE, WITHOUT 06/08/2019 CESAR DE GUZMAN DO Ot G47. 33 OBSTRUCTIVE SLEEP APNEA (ADULT) (PEDIATR 06/08/2019 CESAR DE GUZMAN DO Ot I10 ESSENTIAL (PRIMARY) HYPERTENSION 06/08/2019 CESAR DE GUZMAN DO Ot K21. 9 GASTRO-ESOPHAGEAL REFLUX DISEASE WITHOUT 06/08/2019 CESAR DE GUZMAN DO Ot K22. 70 KELLER'S ESOPHAGUS WITHOUT DYSPLASIA 06/08/2019 CESAR DE GUZMAN DO Ot K29. 50 UNSPECIFIED CHRONIC GASTRITIS WITHOUT BL 06/08/2019 CESAR DE GUZMAN DO Ot K31. 89 OTHER DISEASES OF STOMACH AND DUODENUM 06/08/2019 CESAR DE GUZMAN DO Ot K44. 9 DIAPHRAGMATIC HERNIA WITHOUT OBSTRUCTION 06/08/2019 CESAR DE GUZMAN DO Ot K57. 30 DVRTCLOS OF LG INT W/O PERFORATION OR AB 06/08/2019 CESAR DE GUZMAN DO Ot Z68. 35 BODY MASS INDEX (BMI) 35.0-35.9, ADULT 06/08/2019 CESAR DE GUZMAN DO Ot Z79.899 OTHER [facility] (CURRENT) DRUG THERAPY 06/08/2019 CESAR DE GUZMAN DO Ot Z82. 49 FAMILY HX OF ISCHEM HEART DIS AND OTH DI 06/08/2019 CESAR DE GUZMAN DO Ot Z86.010 PERSONAL HISTORY OF COLONIC POLYPS 06/08/2019 CESAR DE GUZMAN DO Ot Z87.891 PERSONAL HISTORY OF NICOTINE DEPENDENCE 06/08/2019 CESAR DE GUZMAN DO Ot Z90. 89 ACQUIRED ABSENCE OF OTHER ORGANS 06/14/2019 CESAR DE GUZMAN DO Ot E66. 9 OBESITY, UNSPECIFIED 06/14/2019 CESAR DE GUZMAN DO Ot G43.909 MIGRAINE, UNSP, NOT INTRACTABLE, WITHOUT 06/14/2019 CESAR DE GUZMAN DO Ot G47. 33 OBSTRUCTIVE SLEEP APNEA (ADULT) (PEDIATR 06/14/2019 CESAR DE GUZMAN DO Ot I10 ESSENTIAL (PRIMARY) HYPERTENSION 06/14/2019 CESAR DE GUZMAN DO Ot K21. 9 GASTRO-ESOPHAGEAL REFLUX DISEASE WITHOUT 06/14/2019 CESAR DE GUZMAN DO Ot K22. 70 KELLER'S ESOPHAGUS WITHOUT DYSPLASIA 06/14/2019 CESAR DE GUZMAN DO Ot K29. 50 UNSPECIFIED CHRONIC GASTRITIS WITHOUT BL 06/14/2019 CESAR DE GUZMAN DO Ot K31. 89 OTHER DISEASES OF STOMACH AND DUODENUM 06/14/2019 CESAR DE GUZMAN DO Ot K44. 9 DIAPHRAGMATIC HERNIA WITHOUT OBSTRUCTION 06/14/2019 CESAR DE GUZMAN DO Ot K57. 30 DVRTCLOS OF LG INT W/O PERFORATION OR AB 06/14/2019 CESAR DE GUZMAN DO Ot Z68. 35 BODY MASS INDEX (BMI) 35.0-35.9, ADULT 06/14/2019 CESAR DE GUZMAN DO Ot Z79.899 OTHER [facility] (CURRENT) DRUG THERAPY 06/14/2019 CESAR DE GUZMAN DO Ot Z82. 49 FAMILY HX OF ISCHEM HEART DIS AND OTH DI 06/14/2019 CESAR DE GUZMAN DO Ot Z86.010 PERSONAL HISTORY OF COLONIC POLYPS 06/14/2019 CESAR DE GUZMAN DO Ot Z87.891 PERSONAL HISTORY OF NICOTINE DEPENDENCE 06/14/2019 CESAR DE GUZMAN DO Ot Z90. 89 ACQUIRED ABSENCE OF OTHER ORGANS 06/15/2019 CESAR DE GUZMAN DO Ot E66. 9 OBESITY, UNSPECIFIED 06/15/2019 CESAR DE GUZMAN DO Ot G43.909 MIGRAINE, UNSP, NOT INTRACTABLE, WITHOUT 06/15/2019 CESAR DE GUZMAN DO Ot G47. 33 OBSTRUCTIVE SLEEP APNEA (ADULT) (PEDIATR 06/15/2019 CESAR DE GUZMAN DO Ot I10 ESSENTIAL (PRIMARY) HYPERTENSION 06/15/2019 CESAR DE GUZMAN DO Ot K21. 9 GASTRO-ESOPHAGEAL REFLUX DISEASE WITHOUT 06/15/2019 CESAR DE GUZMAN DO Ot K22. 70 KELLER'S ESOPHAGUS WITHOUT DYSPLASIA 06/15/2019 CESAR DE GUZMAN DO Ot K29. 50 UNSPECIFIED CHRONIC GASTRITIS WITHOUT BL 06/15/2019 CESAR DE GUZMAN DO Ot K31. 89 OTHER DISEASES OF STOMACH AND DUODENUM 06/15/2019 CESAR DE GUZMAN DO Ot K44. 9 DIAPHRAGMATIC HERNIA WITHOUT OBSTRUCTION 06/15/2019 CESAR DE GUZMAN DO Ot K57. 30 DVRTCLOS OF LG INT W/O PERFORATION OR AB 06/15/2019 CESAR DE GUZMAN DO Ot Z68. 35 BODY MASS INDEX (BMI) 35.0-35.9, ADULT 06/15/2019 CESAR DE GUZMAN DO Ot Z79.899 OTHER [facility] (CURRENT) DRUG THERAPY 06/15/2019 CESAR DE GUZMAN DO Ot Z82. 49 FAMILY HX OF ISCHEM HEART DIS AND OTH DI 06/15/2019 CESAR DE GUZMAN DO Ot Z86.010 PERSONAL HISTORY OF COLONIC POLYPS 06/15/2019 CESAR DE GUZMAN DO Ot Z87.891 PERSONAL HISTORY OF NICOTINE DEPENDENCE 06/15/2019 CESAR DE GUZMAN DO Ot Z90. 89 ACQUIRED ABSENCE OF OTHER ORGANS 06/16/2019 CESAR DE GUZMAN DO Ot E66. 9 OBESITY, UNSPECIFIED 06/16/2019 CESAR DE GUZMAN DO Ot G43.909 MIGRAINE, UNSP, NOT INTRACTABLE, WITHOUT 06/16/2019 CESAR DE GUZMAN DO Ot G47. 33 OBSTRUCTIVE SLEEP APNEA (ADULT) (PEDIATR 06/16/2019 CESAR DE GUZMAN DO Ot I10 ESSENTIAL (PRIMARY) HYPERTENSION 06/16/2019 CESAR DE GUZMAN DO Ot K21. 9 GASTRO-ESOPHAGEAL REFLUX DISEASE WITHOUT 06/16/2019 CESAR DE GUZMAN DO Ot K22. 70 KELLER'S ESOPHAGUS WITHOUT DYSPLASIA 06/16/2019 CESAR DE GUZMAN DO Ot K29. 50 UNSPECIFIED CHRONIC GASTRITIS WITHOUT BL 06/16/2019 CESAR DE GUZMAN DO Ot K31. 89 OTHER DISEASES OF STOMACH AND DUODENUM 06/16/2019 CESAR DE GUZMAN DO Ot K44. 9 DIAPHRAGMATIC HERNIA WITHOUT OBSTRUCTION 06/16/2019 CESAR DE GUZMAN DO Ot K57. 30 DVRTCLOS OF LG INT W/O PERFORATION OR AB 06/16/2019 CESAR DE GUZMAN DO Ot Z68. 35 BODY MASS INDEX (BMI) 35.0-35.9, ADULT 06/16/2019 CESAR DE GUZMAN DO Ot Z79.899 OTHER [facility] (CURRENT) DRUG THERAPY 06/16/2019 CESAR DE GUZMAN DO Ot Z82. 49 FAMILY HX OF ISCHEM HEART DIS AND OTH DI 06/16/2019 CESAR DE GUZMAN DO Ot Z86.010 PERSONAL HISTORY OF COLONIC POLYPS 06/16/2019 CESAR DE GUZMAN DO Ot Z87.891 PERSONAL HISTORY OF NICOTINE DEPENDENCE 06/16/2019 CESAR DE GUZMAN DO Ot Z90. 89 ACQUIRED ABSENCE OF OTHER ORGANS 06/24/2019 CANELO AMARO DO Ot G47.33 OBSTRUCTIVE SLEEP APNEA (ADULT) (PEDIATR 06/24/2019 CANELO AMARO DO Ot I10 ESSENTIAL (PRIMARY) HYPERTENSION 06/24/2019 CANELO AMARO DO, Ot I67.82 CEREBRAL ISCHEMIA 06/24/2019 CANELO AMARO DO, Ot J32.0 CHRONIC MAXILLARY SINUSITIS 06/24/2019 CANELO AMARO DO Ot G47.33 OBSTRUCTIVE SLEEP APNEA (ADULT) (PEDIATR 06/24/2019 CANELO AMARO DO Ot I10 ESSENTIAL (PRIMARY) HYPERTENSION 06/24/2019 CANELO AMARO DO, Ot I67.82 CEREBRAL ISCHEMIA 06/24/2019 CANELO AMARO DO, Ot J32.0 CHRONIC MAXILLARY SINUSITIS Procedures There is no data. Results There is no data. Encounters ACCT No. Visit Date/Time Discharge Status Pt. Type Provider Facility Loc./Unit Complaint [id number] 10/18/2018 17:34:00 10/18/2018 19:55: 00 DIS Outpatient LEISURE, SAYDA [facility] ER [id number] 10/18/2018 19:36:16 Document Registration [id number] 06/08/2019 08:44:00 11:10:00 DIS Outpatient DE GUZMAN CESAR STILES [facility] ENDO HX POLYPS/SCREENING/MICHELLE D/DYSPHAGIA [id number] 06/01/2019 05:31:00 11:08:00 DIS Outpatient DE GUZMAN CESAR STILES [facility] PREOP COLONOSCOPY/EGD [id number] 05/27/2019 09:08:00 23:59:59 CLS Outpatient CANELO AMARO DO [facility] RAD HEADACHE [id number] 03/18/2019 12:30:00 23:59:59 CLS Outpatient CANELO AMARO DO [facility] RAD M25.551 [id number] 08/11/2017 08:09:00 23:59:59 CLS Outpatient CANELO AMARO DO [facility] RAD M17.12 [id number] 04/06/2016 09:07:00 23:59:59 CLS Outpatient CANELO AMARO DO [facility] RAD DISC DISEASE L3 -L5 [id number] 05/03/2015 10:26:00 23:59:59 CLS Outpatient CANELO AMARO DO [facility] RAD LUMBAGO [id number] 02/07/2015 07:05:00 23:59:59 CLS Outpatient CANELO AMARO DO [facility] CARD CHEST PAIN [id number] 10/12/2014 11:27:00 23:59:59 CLS Outpatient KATERYNA ARTEAGA MD [facility] RAD TRAUMA [id number] 10/06/2014 22:56:00 02:06:00 DIS Emergency CANELO HERCULES DO [facility] ER FEVER [id number] 10/05/2014 07:00:00 23:59:59 CLS Preadmit KATERYNA ARTEAGA MD [facility] CARD CP [id number] 10/04/2014 16:43:00 015 23:59:59 CLS Outpatient KATERYNA ARTEAGA MD [facility] LAB INFLUENZA [id number] 10/04/2014 11:16:00 015 23:59:59 CLS Outpatient BIRGIT HARLEY DO [facility] CARD REFLUX, ABD LIZZETH N [id number] 10/03/2014 07:36:00 015 23:59:59 CLS Outpatient BIRGIT HARLEY DO [facility] RAD ABD PAIN,REFLUX ,ENLARGED THYROID [id number] 08/02/2014 13:27:00 015 15:00:00 DIS Outpatient CESAR DE GUZMAN DO [facility] SDC REFLUX [id number] 12/28/2013 14:38:00 014 23:59:59 CLS Outpatient KATERYNA ARTEAGA MD [facility] RAD NEW RENAL INSUF FICIENCY [id number] 07/22/2017 12:47:00 Document Registration [id number] 07/28/2014 05:51:00 Document Registration [id number] 12/16/2011 13:44:00 Document Registration [id number] 02/18/2011 08:10:00 Document Registration [id number] 10/21/2010 11:03:00 Document Registration [id number] 05/03/2009 16:33:00 Document Registration
--- OUTSIDE RECORDS SUMMARY | 2019-07-03 06:34 | XMS REPORT | Encounter Summary ---
Author Author [facility] Organization [facility] Address Unknown Phone Unavailable Care Team Providers Care Financial Dealers Name Role Phone Alex Grewal MD PCP Reason for Visit * Reason Comments Eye Problem new pt referred by Dr Villatoro in [facility], for leision LRL, pt states he first noticed bump about 6 months ago a nd states it has gotten smaller, pt has hx BCC on left ear and temporal rig ht eye, denies pain or discomfort. Pt states vision is stable Encounter Details Care Team Description Date Type Department Donovan Ocampo MD [address] [id number] Eyelid lesion 03/12/2019 Office Visit [facility] [address] [place] [address] Social History Date Tobacco Use Types Packs/Day Years Used Former Smoker Smokeless Tobacco: Former User Sex Assigned at Date Recorded Not on file Industry Job Start Date Occupation Not on file Not on file Not on file Travel End Travel History Travel Start No recent travel history available. documented as of this encounter Last Filed Vital Signs Reading Time Taken [...] 03/12/2019 8:58 AM CDT Body Mass Index documented in this encounter Progress Notes * Donovan Ocampo MD - 03/12/2019 9:30 AM CDT Body mass index is 34.95 kg/m. Discussed patient's BMI with him. The body mass index is 34.95 kg/m. and fal ls within the category of Obesity 1 (30 to <35); specialist visit only, referred back to Primary Care Provider for follow up. Assessment and Plan: RLL lesion r/o BCC Plan for excision documented in this encounter Plan of Treatment Not on filedocumented as of this encounter Visit Diagnoses Diagnosis Eyelid lesion Unspecified disorder of eyelid documented in this encounter
== END 2019-06-08 11:10 | disposition home or self-care (01) ==
LOC: ENDO 08:44
PROVIDERS: ATTEND Surgery
DX: K57.30 Diverticulosis of large intestine without perforation or abscess without bleeding (principal); K29.50 Unspecified chronic gastritis without bleeding; K22.70 Barrett's esophagus without dysplasia; K44.9 Diaphragmatic hernia without obstruction or gangrene; K31.89 Other diseases of stomach and duodenum; I10 Essential (primary) hypertension; G47.33 Obstructive sleep apnea (adult) (pediatric); G43.909 Migraine, unspecified, not intractable, without status migrainosus; K21.9 Gastro-esophageal reflux disease without esophagitis; E66.9 Obesity, unspecified; Z68.35 Body mass index [BMI] 35.0-35.9, adult; Z90.89 Acquired absence of other organs; Z86.010 Personal history of colon polyps; Z79.899 Other long term (current) drug therapy; Z87.891 Personal history of nicotine dependence; Z82.49 Family history of ischemic heart disease and other diseases of the circulatory system
CPT/HCPCS: 88305

== ENCOUNTER 2020-01-17 05:34 | Outpatient (RCR) | payer MEDICARE, OTHER ==
[2020-01-11 12:13] VITALS: BP 153/78
--- NOTE | 2020-01-11 13:06 | Diagnostic Imaging Report ---
INDICATION: Preop left hip replacement. FINDINGS: PA and lateral views. Lungs are well-aerated. There is no air-trapping. There are multiple calcified nodules within the lungs bilaterally. These are unchanged when compared with 10/06/2014. Heart is not enlarged. No pneumothorax or pleural effusion. No bony abnormalities. IMPRESSION: 1. No acute abnormalities demonstrated. Calcified granulomatous changes are again noted. Dictated by: Dictated on workstation # [id number]
[2020-01-11 13:18] LABS: BASOPHILS % (AUTO) 0 % (0-10); EOSINOPHILS # (AUTO) 0.4 10^3/uL (0.0-0.3); EOSINOPHILS % (AUTO) 3 % (0-10); HEMATOCRIT 42 % (40-54); LYMPHOCYTES # (AUTO) 1.8 X 10^3 (1.0-4.0); LYMPHOCYTES % (AUTO) 16 % (12-44); MEAN CORPUSCULAR HEMOGLOBIN 29 PG (25-34); MEAN CORPUSCULAR HGB CONC 34 G/DL (32-36); MEAN CORPUSCULAR VOLUME 88 FL (80-99); MONOCYTES # (AUTO) 1.1 X 10^3 (0.0-1.0); MONOCYTES % (AUTO) 9 % (0-12); NEUTROPHILS # (AUTO) 8.1 X 10^3 (1.8-7.8); NEUTROPHILS % (AUTO) 71 % (42-75); PLATELET COUNT 195 10^3/uL (130-400); RED CELL DISTRIBUTION WIDTH 14.3 % (10.0-14.5); WHITE BLOOD COUNT 11.3 10^3/uL (4.3-11.0)
[2020-01-11 13:20] LABS: BILIRUBIN,URINE NEGATIVE (NEGATIVE); CLARITY,URINE CLEAR; COLOR,URINE YELLOW; GLUCOSE, URINE (UA) NEGATIVE (NEGATIVE); KETONES,URINE NEGATIVE (NEGATIVE); LEUKOCYTE ESTERASE ,URINE NEGATIVE (NEGATIVE); NITRITE,URINE NEGATIVE (NEGATIVE); PH,URINE 5.5 (5-9); PROTEIN,URINE NEGATIVE (NEGATIVE)
[2020-01-11 13:28] LABS: BACTERIA,URINE NEGATIVE /HPF; RBC,URINE RARE /HPF
[2020-01-11 13:33] LABS: INR 0.9 (0.8-1.4); PROTHROMBIN TIME PATIENT 12.9 SEC (12.2-14.7)
[2020-01-11 13:37] LABS: ALBUMIN 3.5 GM/DL (3.2-4.5); BILIRUBIN,TOTAL 0.3 MG/DL (0.1-1.0); CALCIUM 9.1 MG/DL (8.5-10.1); CREATININE SERUM 1.56 MG/DL (0.60-1.30); POTASSIUM 4.2 MMOL/L (3.6-5.0); TOTAL PROTEIN 7.5 GM/DL (6.4-8.2)
[2020-01-11 13:51] LABS: ERYTHROCYTE SEDIMENTATION RATE 29 MM/HR (0-30)
[~2020-01-17] VITALS: Ht 165 cm; Wt 94.3 kg
[~2020-01-17 05:34] MED LIST changes: -INDO50CA11 PO; +INDO50CA82 PO; +SUCR1TAB36 PO; +TRZ50T PO
== END 2020-01-17 10:16 | disposition home or self-care (01) ==
LOC: PREOP 05:34
PROVIDERS: ATTEND Orthopaedic Surgery
DX: Z01.811 Encounter for preprocedural respiratory examination (principal); Z01.810 Encounter for preprocedural cardiovascular examination; Z01.812 Encounter for preprocedural laboratory examination; M17.12 Unilateral primary osteoarthritis, left knee; R53.83 Other fatigue; Z20.828 Contact with and (suspected) exposure to other viral communicable diseases; Z11.2 Encounter for screening for other bacterial diseases
CPT/HCPCS: 36415; 71046; 80053; 81000; 85025; 85610; 85652; 86850; 86900; 86901; 87081; 87635; 93005

== ENCOUNTER 2020-01-19 07:46 | Inpatient (IN) | payer MEDICARE, OTHER ==
--- NOTE | 2020-01-11 15:16 | HISTORY AND PHYSICAL ---
DATE OF SERVICE: DATE OF ADMISSION: 01/19/2020 This will be for inpatient admission. Date of service, date of surgery and date of admission will be 01/19/2020 for left total knee arthroplasty. HISTORY OF PRESENT ILLNESS: The patient is a 64-year-old gentleman with complaints of progressively worsening left knee pain. Radiographs reveal severe medial and patellofemoral arthrosis. He has undergone treatment with injections as well as physical therapy at home and an arthroscopy. He reports progressive loss of function. He reports that his limp has become worse. Due to functional impairment and failure to improve with conservative measures, the patient has elected to proceed with surgical intervention. REVIEW OF SYSTEMS: No chest pain, no shortness of breath, no dysuria. PAST MEDICAL HISTORY: Lumbar stenosis, psoriasis, obstructive sleep apnea, hypertension, gout, obesity; degenerative disk disease, lumbar spine; reflux, basal cell carcinoma of the face, hemorrhoids. PAST SURGICAL HISTORY: Tonsillectomy, right index finger, colonoscopy, L3 through L5 decompressive laminectomy, and fusion, left knee arthroscopy. FAMILY HISTORY: Significant for cancer, ischemic heart disease. PRIMARY CARE PROVIDER: Dr. Grewal. MEDICATIONS: Aspirin, pantoprazole, zolpidem, diclofenac, sildenafil, losartan, triamterene, ketaconazole, sucralfate, and clobetasol. ALLERGIES: No known drug allergies. SOCIAL HISTORY: The patient denies alcohol, tobacco use. PHYSICAL EXAMINATION: GENERAL: The patient is well developed, well-nourished, in no acute distress. HEENT: Normocephalic, atraumatic. Pupils are equal, round, reactive to light. Oropharynx is clear. NECK: Supple, no lymphadenopathy. LUNGS: Clear to auscultation bilaterally. HEART: Regular rate and rhythm. ABDOMEN: Soft, nontender, and nondistended. EXTREMITIES: The left knee demonstrates moderate effusion. He has varus alignment. He is tender along his medial joint line, has pain medially with Arely. He has marked patellofemoral crepitus. He ambulates with an antalgic gait. Range of motion is 0/2/130. IMPRESSION: Left knee severe osteoarthritis, unresponsive to conservative measures. PLAN: Left total knee arthroplasty. The risks, benefits, options, ramifications and recovery have been discussed at length with the patient. He understands and wishes to proceed. The patient will require regular inpatient admission due to pain management, need for physical therapy, gait abnormalities and comorbidities. Job ID: [id number] DocumentID: [id number] Dictated Date: 01/10/2020 10:19:30 Registered Art Therapist Date: 01/10/2020 12:03:49 Dictated By: HUSSAIN SOTELO MD
[2020-01-19] VITALS (10 sets, daily range): BP systolic 129–155; BP diastolic 61–79
[~2020-01-19] VITALS: Ht 165 cm; Wt 94.3 kg
[~2020-01-19 07:46] MED LIST changes: +ACETAMINOPHEN 325 MG TABLET PO PRN; +ONDANSETRON 4 MG/2 ML (SDV) Z0FRAN IVP PRN; +diphenhydrAMINE 50 MG/ML INJ (BENADRYL) IVP PRN; +morphine PCA 100 MG/100 ML BAG IV PRN
[2020-01-19] MEDS ORDERED: NS (IVPB) 33 ML, ROPIVACAINE INJECTION 275 MG, EPINEPHrine 1 MG INJECTION 0.5 MG, morp... IU ONE ×4 (08:15)
--- OUTSIDE RECORDS SUMMARY | 2020-01-19 08:15 | XMS REPORT | Clinical Summary ---
Author Author [facility] Organization [facility] Address Unknown Phone Unavailable Care Team Providers Care Textile Conservator Name Role Phone Alex Grewal MD PCP Source Comments Some departments are not documenting in the electronic medical record. If you d o not see the information that you expected, contact Release of Information in [facility] [employer] Information Management department at [phone] for further assistan ce in locating additional records.[facility] Allergies No Known Allergies Medications End Date [...] Health Maintenance Due Date Last Done Comments MEDICARE ANNUAL WELLNESS 1955 VISIT DTAP/TDAP VACCINES (1 - 12/26/1971 Tdap) HEPATITIS C SCREENING 12/26/1971 PHYSICAL (COMPREHENSIVE) 12/26/1971 EXAM COLORECTAL CANCER 12/26/2003 SCREENING SHINGLES RECOMBINANT 12/26/2003 VACCINE (1 of 2) ABDOMINAL AORTIC ANEURYSM 2018 SCREENING PNEUMONIA (PPSV23) 2018 VACCINE (1 of 1 - PPSV23) INFLUENZA VACCINE 04/06/2020 Results Not on filefrom Last 3 Months Insurance Type Payer Benefit Subscriber ID Effective Phone Address Plan / Dates Group Medicare MEDICARE MEDICARE xxxxxxxxxxx 2018-P PART A AND resent B HMO HUMANA HUMANA xxxxxxxxx 2018-P SUPPLEMENT resent [place] 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
--- OUTSIDE RECORDS SUMMARY | 2020-01-19 08:16 | XMS REPORT ---
Author Author [employer] Organization [employer] [facility] [place] Address [address] [place] [address] Care Team Providers Care Rippler Name Role Phone KATERYNA ARTEAGA Unavailable KATERYNA ARTEAGA MD Unavailable Unavailable BIRGIT HARLEY DO Unavailable Unavailable CESAR DE GUZMAN DO Unavailable Unavailable CANELO AMARO DO Unavailable Unavailable CANELO HERCULES DO Unavailable Unavailable KATERYNA ARTEAGA MD Unavailable Unavailable BIRGIT HARLEY DO Unavailable Unavailable CANELO AMARO DO Unavailable Unavailable CESAR DE GUZMAN DO Unavailable Unavailable CANELO AMARO PCP CANELO HERCULES DO Unavailable Unavailable HUSSAIN SOTELO MD Unavailable Unavailable Unavailable Unavailable Unavailable Unavailable Unavailable Unavailable Unavailable Unavailable Allergies The data below is from unstructured sources Allergen Type Severity Reaction Status Last Updated No Known Drug Allergies Active 10/21/10 No known allergies. Encounters Encounter Date Encounter Type Encounter Diagnosis Care Provider Facility Start: Patient encounter HUSSAIN SOTELO MD [facility] 01-17-2020 [facility] End: 01-17-2020 Start: Patient encounter HUSSAIN SOTELO MD [facility] 01-11-2020 [facility] Start: Admission to same day CANELO [facility] 06-08-2019 surgery center Work Phone: [place] [phone] End: 06-08-2019 Start: Patient encounter CESAR DE GUZMAN DO [facility] 06-08-2019 [facility] ([id number]) End: 06-08-2019 Start: Patient encounter CANELO [facility] [address] 06-01-2019 procedure Work Phone: [place] [phone] End: 06-01-2019 Start: Patient encounter CESAR DE GUZMAN DO [facility] 06-01-2019 procedure [facility] ([id number]) End: 06-01-2019 Start: Patient encounter CANELO AMARO [place] [address] 05-27-2019 procedure Work Phone: [place] [phone] Start: Patient encounter CANELO AMARO DO [facility] 05-27-2019 procedure [facility] ([id number]) Start: Patient encounter CANELO AMARO DO [facility] 03-18-2019 procedure [facility] ([id number]) Start: Patient encounter NA NA [facility] Di strict #1 10-18-2018 procedure of [facility] ([id number]) End: 10-18-2018 Start: Patient encounter CANELO AMARO DO Not Av ailable ([id number]) 08-11-2017 procedure Start: Patient encounter CANELO AMARO DO [facility] 08-11-2017 procedure [facility] ([id number]) Start: Patient encounter CANELO AMARO DO Not Av ailable ([id number]) 07-22-2017 procedure Start: Patient encounter CANELO AMARO DO [facility] [place] 07-22-2017 procedure [facility] ([id number]) Start: Patient encounter CANELO AMARO DO Not Av ailable ([id number]) 04-06-2016 procedure Start: Patient encounter CANELO AMARO DO [facility] 04-06-2016 procedure [facility] ([id number]) Start: Patient encounter CANELO AMARO DO Not Av ailable ([id number]) 05-03-2015 procedure Start: Patient encounter CANELO AMARO DO [facility] 05-03-2015 procedure [facility] ([id number]) Start: Patient encounter CANELO AMARO DO Not Av ailable ([id number]) 02-07-2015 procedure Start: Patient encounter KATERYNA ARTEAGA MD Not A vailable ([id number]) 10-12-2014 procedure Start: Emergency department CANELO HERCULES DO Not A vailable ([id number]) 10-06-2014 patient visit End: 10-07-2014 Start: Patient encounter CESAR DE GUZMAN DO Not Availa ble ([id number]) 08-02-2014 procedure End: 08-02-2014 Start: Patient encounter CESAR DE GUZMAN DO [facility] 08-02-2014 procedure [facility] ([id number]) End: 08-02-2014 Start: Patient encounter KATERYNA ARTEAGA MD Not A vailable ([id number]) 12-28-2013 procedure Start: Patient encounter KATERYNA ARTEAGA MD [facility] [address] [place] 12-28-2013 procedure [facility] ([id number]) Start: Patient encounter KATERYNA ARTEAGA MD Not A vailable ([id number]) 12-16-2011 procedure EXAM PRE-OPERATIVE Pre-operative [facility] Via [facility] NOS examination, [facility] unspecified ([id number]) Encounter for other [facility] pre[facility]cedural [facility] examination ([id number]) Medical Equipment The data below is from unstructured sourcesNo Medical Equipment Information availableNo Medical Equipment Information availableNo Medical Equipment Information available Goals Date Patient Goal Desired Activity/St ate Immunizations Immunizatio Immunization Notes Care Provider Facility n Date 06-08-2019 CANELO AMARO [place] [facility] [employer] Work Phone: [facility] Andre [phone]) 06-01-2019 CANELO AMARO [place] [address] [employer] Work Phone: [facility] ([id number]) Interventions No Information Medications Medication Drug Dates Sig Sig (Original) Class(es) (Normalized) clobetasol propionate Corticoste Clobetasol Propi juliette Active 15 TOPICAL 0.5 mg/ml topical cream roid Twice A Day (2 sources) DEXAMETHASONE VIAL INJ 4 Start: MG/CC (DECADRON VIAL) 10-19-2018 (1 source) End: 10-25-2018 diclofenac sodium 75 mg Nonsteroid Diclofenac Sod ium Active 75 ORAL Daily delayed release oral al tablet Anti-infla (2 sources) mmatory Drug indomethacin 50 mg oral Nonsteroid Indomethacin A ctive 50 ORAL Three Times capsule al A Day as needed for Pain-Moderate (5-7) (2 sources) Anti-infla mmatory Drug losartan potassium 50 mg Angiotensi Losartan Pota ssium Active 50 ORAL Daily oral tablet n 2 (2 sources) Receptor Jonathan METHYLPREDNISOLONE VIAL Start: INJ 40 MG/CC 10-18-2018 (DEPO-MEDROL VIAL) (1 source) End: 10-18-2018 polyethylene glycol 3350 Osmotic Polyethylene Glycol 3350 Active 17 ORAL 14609 mg powder for oral Laxative Every 48 Hour s solution (2 sources) Promethazine Hcl/Codeine Start: take 5-10 mL by Pro methazine Hcl/Codeine Discontinued 0 (2 sources) 10-21-2010 mouth every ORAL Every 4HRS 60 October 21, 2010 four hours 12:33pm August 02, 2014 5 - 10 ML End: 08-02-2014 sildenafil 20 mg oral Phosphodie Sildenafil Citra te Active 20 ORAL As tablet sterase 5 Needed (2 sources) Inhibitor zolpidem tartrate 10 mg gamma-Garcia Zolpidem Tartr ate Active 10 ORAL Bedtime oral tablet obutyric (2 sources) Acid-ergic Agonist Payers Date Payer Normalized Payer Policy ID [employer]UE [employer] [place] [employer] [id number] Plan of Treatment Date Care Activity Detail Author Patient Education [facility] [facility] ([id number]) Problems Active Problems Problem Problem Date Last Documented Episodic/Chr Provider Classificati Recorded Date onic on Abdominal Diaphragmatic hernia without Episodic CESAR DE GUZMAN hernia mention of obstruction or gangrene DO ; Translations: [Diaphragmatic (12 hernia without obstruction or sources) gangrene] Abdominal Abdominal pain, unspecified site Episodic BIRGIT pain DEFFENBAUGH (12 sources) DO Diverticulos Diverticulosis of large intestine Chronic CESAR DE GUZMAN is and without perforation or abscess DO diverticulit without bleeding is (6 sources) Esophageal Esophageal reflux ; Translations: Chronic BIRGIT disorders [Gastroesophageal reflux disease] D EFFENBAUGH (24 sources) DO Essential Essential (primary) hypertension Chronic CANELO hypertension AMARO DO (10 sources) Gastritis Unspecified chronic gastritis Chronic CESAR DE GUZMAN and without bleeding DO duodenitis (6 sources) Headache; Migraine, unspecified, not Chronic B RETT DE GUZMAN including intractable, without status DO migraine migrainosus (6 sources) Joint Other tear of medial meniscus, Episodic CANELO disorders current injury, left knee, initial AMARO DO and encounter ; Translations: [ OTH TEAR dislocations OF LAT MENSC, CURRENT INJUR Y, L] ; trauma-relat ed (6 sources) Nonspecific Chest pain, unspecified Episodic LARR Y chest pain DEFFENBAUGH (12 sources) DO Osteoarthrit Unilateral primary osteoarthritis, 01-13-2020 Chr onic CANELO is left knee AMARO DO (14 sources) Other Other extermination inspector (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) drug Episodic CESAR DE GUZMAN aftercare therapy DO (6 sources) Other and Cerebral ischemia Chronic CANELO ill-defined AMARO DO cerebrovascu lar disease (4 sources) Other and Personal history of colonic polyps Episodic CESAR DE GUZMAN unspecified DO benign neoplasm (6 sources) Other Other diseases of stomach and Episodic CESAR DE GUZMAN disorders of duodenum DO stomach and duodenum (6 sources) Other Pain in right hip Episodic CANELO non-traumati AMARO DO c joint disorders (5 sources) Other Body mass index (BMI) 35.0-35.9, Chronic CESAR DE GUZMAN nutritional; adult DO endocrine; and metabolic disorders (6 sources) Other Obesity, unspecified Chronic CESAR D UNBAR nutritional; DO endocrine; and metabolic disorders (6 sources) Other upper Chronic maxillary sinusitis Chronic CANELO respiratory AMARO DO infections (4 sources) Residual Obstructive sleep apnea (adult) Chronic CANELO codes; (pediatric) AMARO DO unclassified (10 sources) Residual Acquired absence of other organs Episodic CESAR DE GUZMAN codes; DO unclassified (6 sources) Residual Family history of ischemic heart Episodic CESAR DE GUZMAN codes; disease and other diseases of the D O unclassified circulatory system (6 sources) Screening Personal history of nicotine Episodic CESAR DE GUZMAN and history dependence DO of mental health and substance abuse codes (6 sources) Spondylosis; Other spondylosis with Chronic WILLI AM intervertebr radiculopathy, lumbar region SULLIV AN DO al disc disorders; other back problems (6 sources) Thyroid Goiter, unspecified Chronic BIRGIT disorders DEFFENBAUGH (12 sources) DO Past or Other Problems Problem Problem Date Last Documented Episodic/Chr Provider Classificati Recorded Date onic on Acute Acute bronchitis, unspecified ; Episodic LYNIETA bronchitis Translations: [ACUTE BRONCHITIS] LE ISURE (4 sources) E Codes: Unspecified accident Episodic KATHLEE N Natural/envi CHANDLER MELENDEZ ronroseanne (6 sources) E Codes: Home accidents Episodic KATERYNA Place of CHANDLER MELENDEZ occurrence (6 sources) E Codes: Other external cause status Episodic KATERYNA Unspecified CHANDLER MELENDEZ (6 sources) Esophageal Esophagitis, unspecified ; Episodic B RETT DE GUZMAN disorders Translations: [ESOPHAGITIS NOS] DO (7 sources) Gastritis Duodenitis, without mention of Episodic CESAR DE GUZMAN and hemorrhage ; Translations: DO duodenitis [DUODENITIS, WITHOUT MENTIO N OF (8 sources) HEMORRHAG] Other and History of polyp of colon Episodic [place] LLIAM unspecified AMARO benign Work Phone: neoplasm [phone] (1 source) 49 Other Unspecified disorder of kidney and Episodic KATERYNA diseases of ureter CHANDLER MELENDEZ kidney and ureters (6 sources) Other Knee, leg, ankle, and foot injury Episodic KATERYNA injuries and DEE DEENESS MD conditions due to external causes (6 sources) Other lower Cough Episodic KATERYNA respiratory SANDNESS MD disease (1 source) Spondylosis; Radiculopathy, lumbar region Episodic CANELO intervertebr AMARO DO al disc disorders; other back problems (6 sources) Procedures Date Procedure Procedure Detail Performing Cl inician Start: MRI of brain CANELO AMARO 05-27-2019 without contrast Work Phone: Results Test Name Value Interpreta Reference Facilit Date tion Range y Time laboratory on 2020-01-17 Coronavirus Ab Qn Negative Invalid Negative PENDING 01-16 -2 (S) Interpreta LOCATIO 020 tion Code [facility] 05:16-0 ([id number]) 400 laboratory on 2020-01-11 ABO and Rh group Nom AN Invalid PENDING 01-10 (Bld) Interpreta LOCATIO 020 tion Code [facility] 09:53-0 ([id number]) 400 Albumin [Mass/Vol] 3.5 g/dL Negative 3.2-4.5 PENDING 07-0 7-2 g/dL LOCATIO 020 [facility] 08:24-0 ([id number]) 400 ALP [Catalytic 66 U/L Negative 40-136 U/L PENDING activity/Vol] LOCATIO 020 [facility] 08:24-0 ([id number]) 400 ALT [Catalytic 25 U/L Negative 0-55 U/L PENDING activity/Vol] LOCATIO 020 [facility] 08:24-0 ([id number]) 400 Anion gap 10 mmol/L Negative 5-14 PENDING 2 [Moles/Vol] mmol/L LOCATIO 020 [facility] 08:24-0 ([id number]) 400 AST [Catalytic 23 U/L Negative 5-34 U/L PENDING activity/Vol] LOCATIO 020 [facility] 08:24-0 ([id number]) 400 Bacteria LM Ql Negative Invalid PENDING (Urine sed) Interpreta LOCATIO 020 tion Code [facility] 08:24-0 ([id number]) 400 Basophils (Bld) 0.0 10*3/uL Negative 0.0-0.1 PENDING 01-10 [#/Vol] 10*3/uL LOCATIO 020 [facility] 08:24-0 ([id number]) 400 Basophils/100 WBC 0 % Negative 0-10 % PENDING 01-10 (Bld) LOCATIO 020 [facility] 08:24-0 ([id number]) 400 Bilirubin [Mass/Vol] 0.3 mg/dL Negative 0.1-1.0 PENDING mg/dL LOCATIO 020 [facility] 08:24-0 ([id number]) 400 Bilirubin Ql (U) Negative Invalid NEGATIVE PENDING Interpreta LOCATIO 020 tion Code [facility] 08:24-0 ([id number]) 400 Blood group antibody Negative Invalid PENDING 01-10 screen Ql Interpreta LOCATIO 020 tion Code [facility] 10:05-0 ([id number]) 400 Calcium [Mass/Vol] 9.1 mg/dL Negative 8.5-10.1 PENDING 07-0 7-2 mg/dL LOCATIO 020 [facility] 08:24-0 ([id number]) 400 Calcium [Mass/Vol] 9.5 mg/dL Negative 8.5-10.1 PENDING 07-0 7-2 mg/dL LOCATIO 020 [facility] 08:24-0 ([id number]) 400 Casts LM Ql (Urine NONE Invalid PENDING sed) Interpreta LOCATIO 020 tion Code [facility] 08:24-0 ([id number]) 400 Chloride [Moles/Vol] 105 mmol/L Negative 98-107 PENDING 0 01-10-2 mmol/L LOCATIO 020 [facility] 08:24-0 ([id number]) 400 Clarity (U) CLEAR Invalid PENDING Interpreta LOCATIO 020 tion Code [facility] 08:24-0 ([id number]) 400 CO2 [Moles/Vol] 22 mmol/L Negative 21-32 PENDING mmol/L LOCATIO 020 [facility] 08:24-0 ([id number]) 400 Color (U) YELLOW Invalid PENDING Interpreta LOCATIO 020 tion Code [facility] 08:24-0 ([id number]) 400 Creatinine 1.56 mg/dL High 0.60-1.30 PENDING [Mass/Vol] mg/dL LOCATIO 020 [facility] 08:24-0 ([id number]) 400 Creatinine and 45 Invalid PENDING Glomerular Interpreta LOCATIO 020 filtration tion Code [facility] 08:24-0 rate.predicted panel ([id number]) 400 - Serum, Plasma or Blood Crystals LM Ql NONE Invalid PENDING (Urine sed) Interpreta LOCATIO 020 tion Code [facility] 08:24-0 ([id number]) 400 Eosinophils (Bld) 0.4 10*3/uL High 0.0-0.3 PENDING 01-05 [#/Vol] 10*3/uL LOCATIO 020 [facility] 08:24-0 ([id number]) 400 Eosinophils/100 WBC 3 % Negative 0-10 % PENDING 01-05 (Bld) LOCATIO 020 [facility] 08:24-0 ([id number]) 400 Epithelial NONE Invalid PENDING cells.squamous LM Ql Interpreta LOCATIO 020 (Urine sed) tion Code [facility] 08:24-0 ([id number]) 400 Erythrocyte 14.3 % Negative 10.0-14.5 PENDING distribution width % LOCATIO 020 (RBC) [Ratio] [facility] 08:24-0 ([id number]) 400 ESR (Bld) [Velocity] 29 Negative 0-30 mm PENDING LOCATIO 020 [facility] 08:24-0 ([id number]) 400 Glucose [Mass/Vol] 94 mg/dL Negative 70-105 PENDING 7-2 mg/dL LOCATIO 020 [facility] 08:24-0 ([id number]) 400 Glucose Auto test Negative Invalid NEGATIVE PENDING 01-10 strip Ql (U) Interpreta LOCATIO 020 tion Code [facility] 08:24-0 ([id number]) 400 Hematocrit (Bld) 42 % Negative 40-54 % PENDING [Volume fraction] LOCATIO 020 [facility] 08:24-0 ([id number]) 400 Hemoglobin (Bld) 14.0 g/dL Negative 13.3-17.7 PENDING [Mass/Vol] g/dL LOCATIO 020 [facility] 08:24-0 ([id number]) 400 INR Coag (Platelet 0.9 Negative 0.8-1.4 PENDING 01-05 poor plasma or LOCATIO 020 blood) [Relative [facility] 08:24-0 time] ([id number]) 400 Ketones Auto test Negative Invalid NEGATIVE PENDING 01-10 strip Ql (U) Interpreta LOCATIO 020 tion Code [facility] 08:24-0 ([id number]) 400 Leukocyte esterase Negative Invalid NEGATIVE PENDING 01-05 Test strip Ql (U) Interpreta LOCATIO 020 tion Code [facility] 08:24-0 ([id number]) 400 Lymphocytes (Bld) 1.8 10*3/uL Negative 1.0-4.0 PENDING 01-05 [#/Vol] 10*3 LOCATIO 020 [facility] 08:24-0 ([id number]) 400 Lymphocytes/100 WBC 16 % Negative 12-44 % PENDING 01-05 (Bld) LOCATIO 020 [facility] 08:24-0 ([id number]) 400 MCH (RBC) [Entitic 29 pg Negative 25-34 pg PENDING 2 mass] LOCATIO 020 [facility] 08:24-0 ([id number]) 400 MCHC (RBC) 34 g/dL Negative 32-36 g/dL PENDING [Mass/Vol] LOCATIO 020 [facility] 08:24-0 ([id number]) 400 MCV (RBC) [Entitic 88 Negative 80-99 PENDING -2 vol] [foz_us] LOCATIO 020 [facility] 08:24-0 ([id number]) 400 Monocytes (Bld) 1.1 10*3/uL High 0.0-1.0 PENDING 01-10 [#/Vol] 10*3 LOCATIO 020 [facility] 08:24-0 ([id number]) 400 Monocytes/100 WBC 9 % Negative 0-12 % PENDING 01-10 (Bld) LOCATIO 020 [facility] 08:24-0 ([id number]) 400 MRSA isol Org Negative Invalid PENDING specific cx Ql (Unsp Interpreta LOCATIO 020 spec) tion Code [facility] 08:24-0 ([id number]) 400 Mucus Ql (Urine sed) Negative Invalid PENDING 01-10 Interpreta LOCATIO 020 tion Code [facility] 08:24-0 ([id number]) 400 Neutrophils (Bld) 8.1 10*3/uL High 1.8-7.8 PENDING 01-05 [#/Vol] 10*3 LOCATIO 020 [facility] 08:24-0 ([id number]) 400 Neutrophils/100 WBC 71 % Negative 42-75 % PENDING 01-05 (Bld) LOCATIO 020 [facility] 08:24-0 ([id number]) 400 Nitrite Ql (U) Negative Invalid NEGATIVE PENDING Interpreta LOCATIO 020 tion Code [facility] 08:24-0 ([id number]) 400 pH (U) 5.5 [pH] Invalid 5-9 PENDING Interpreta LOCATIO 020 tion Code [facility] 08:24-0 ([id number]) 400 Platelet mean volume 11.0 High 7.4-10.4 PENDING (Bld) [Entitic vol] [foz_us] LOCATIO 020 [facility] 08:24-0 ([id number]) 400 Platelets (Bld) 195 10*3/uL Negative 130-400 PENDING 01-10 [#/Vol] 10*3/uL LOCATIO 020 [facility] 08:24-0 ([id number]) 400 Potassium 4.2 mmol/L Negative 3.6-5.0 PENDING [Moles/Vol] mmol/L LOCATIO 020 [facility] 08:24-0 ([id number]) 400 Protein [Mass/Vol] 7.5 g/dL Negative 6.4-8.2 PENDING - 7-2 g/dL LOCATIO 020 [facility] 08:24-0 ([id number]) 400 Protein Ql (U) Negative Invalid NEGATIVE PENDING Interpreta LOCATIO 020 tion Code [facility] 08:24-0 ([id number]) 400 PT Coag (PPP) [Time] 12.9 s Negative 12.2-14.7 PENDING s LOCATIO 020 [facility] 08:24-0 ([id number]) 400 RBC (Bld) [#/Vol] 4.76 10*6/uL Negative 4.35-5.85 PENDING 10*6/uL LOCATIO 020 [facility] 08:24-0 ([id number]) 400 RBC LM.HPF (Urine RARE Invalid PENDING sed) [#/Area] Interpreta LOCATIO 020 tion Code [facility] 08:24-0 ([id number]) 400 RBC Ql (U) Negative Invalid NEGATIVE PENDING Interpreta LOCATIO 020 tion Code [facility] 08:24-0 ([id number]) 400 Sodium [Moles/Vol] 137 mmol/L Negative 135-145 PENDING 01-05 mmol/L LOCATIO 020 [facility] 08:24-0 ([id number]) 400 Specific gravity (U) >= Invalid 1.016-1.02 PENDING 0 [Rel density] Interpreta 2 LOCATIO 020 tion Code [facility] 08:24-0 ([id number]) 400 Urea nitrogen 24 mg/dL High 7-18 mg/dL PENDING [Mass/Vol] LOCATIO 020 [facility] 08:24-0 ([id number]) 400 Urea 15 mg/mg Invalid PENDING nitrogen/Creatinine Interpreta LOCATIO 020 [Mass ratio] tion Code [facility] 08:24-0 ([id number]) 400 Urinalysis complete NO Invalid PENDING W Reflex Culture Interpreta LOCATIO 020 panel - Urine tion Code [facility] 08:24-0 ([id number]) 400 Urobilinogen (U) 0.2 mg/dL Invalid < = 1.0 PENDING [Mass/Vol] Interpreta mg/dL LOCATIO 020 tion Code [facility] 08:24-0 ([id number]) 400 WBC (Bld) [#/Vol] 11.3 10*3/uL High 4.3-11.0 PENDING 10*3/uL LOCATIO 020 [facility] 08:24-0 ([id number]) 400 WBC LM.HPF (Urine NONE Invalid PENDING sed) [#/Area] Interpreta LOCATIO 020 tion Code [facility] 08:24-0 ([id number]) 400 Social History Date Type Detail Facility Start: Tobacco smoking status NHIS Ex-smoker (finding ) [place] [facility] 06-01-2019 [facility] ([id number]) End: 06-08-2019 Start: Former Smoker [place] [facility] 06-01-2019 [facility] ([id number]) Start: Denies Use [place] [facility] 10-07-2014 [facility] ([id number]) Start: No [place] [facility] 10-07-2014 [facility] ([id number]) Start: Sex Assigned At Male [facility] 1955 [facility] ([id number]) Vital Signs The data below is from unstructured sources Vital Response Date/Time Temperature (Fahrenheit) 96.9 degree s F (97.6 - 99.5) Temperature (Calculated Celsius) 36. 33961 degrees C (36.4 - 37.5) Temperature Source Tympanic Pulse Rate (adult) 84 bpm (60 - 90) Respiratory Rate 18 bpm (12 - 24) O2 Sat by Pulse Oximetry 95 % (88 - 100) Blood Pressure 123/77 mm Hg Pain Pain Intensity 0 Height (Feet) 5 feet Height (Inches) 6.00 inches Height (Calculated Centimeters) 167. 343172 cm Weight (Pounds) 215 pounds Weight (Calculated Grams) 08299.361 gm Weight (Calculated Kilograms) 97.522 361 kilograms Height 5 ft 6 in Weight 215 lb Body Mass Index 34.7 kg/m^2 Vital Response Date/Time Temperature (Fahrenheit) 100.1 degre es F (97.6 - 99.5) Temperature (Calculated Celsius) 37. 56496 degrees C (36.4 - 37.5) Temperature Source Tympanic Pulse Rate (adult) 118 bpm (60 - 90) Respiratory Rate 20 bpm (12 - 24) O2 Sat by Pulse Oximetry 98 % (88 - 100) Blood Pressure 145/81 mm Hg Pain Pain Intensity 0 Height (Feet) 5 feet Height (Inches) 6.00 inches Height (Calculated Centimeters) 167. 941407 cm Weight (Pounds) 225 pounds Weight (Calculated Grams) 59197.361 gm Weight (Calculated Kilograms) 102.05 8284 kilograms Calculated BMI 35.15 Vital Reading Result Col lection Date/Time Vital Reading Result Col lection Date/Time Functional Status The data below is from unstructured sourcesNo functional status results.No functional status results.No functional status results.No Functional Status information availableNo Functional Status information availableNo Functional Status information availableNo Functional Status inform ation available Mental Status The data below is from unstructured sourcesNo Mental Status Information AvailableNo Mental Status Information AvailableNo Mental Status Information Available Evaluation note Note Date & Note Facility Type Evaluation No Assessments Information Available [facility] ([id number]) Advance Directives Directive Response Recor ded Date/Time Advance Directives No 1:50pm Health Care Power of Optical Scientist No 08/02/14 1:50pm Organ Donor No 08/02/14 1:50pm Resuscitation Status Full Code 08/02/14 1:50pm Directive Response Recor ded Date/Time Advance Directives No 11:13pm Health Care Power of Optical Scientist No 10/06/14 11:13pm Organ Donor No 10/06/14 11:13pm Resuscitation Status Full Code 10/06/14 11:13pm Advance Directive Response Recorded Date/Time Advance Directives No 2018 10:49am Health Care Power of Optical Scientist No June 01, 2019 10:49am Organ Donor No June 01, 2019 10:49am Resuscitation Status Full Code June 01, 2019 10:49am Advance Directive Response Recorded Date/Time Advance Directives No De 2018 9:00am Health Care Power of Optical Scientist No June 08, 2019 9:00am Organ Donor No June 08, 2019 9:00am Resuscitation Status Full Code June 08, 2019 9:00am Discharge Instructions No hospital discharge instructions.No hospital discharge instructions. Additional Instructions Patient Instructions Physician Instructions New, Converted or Re-Newed RX: Transmitted to Pharmacy Plan of Care/Instructions/FU: follow up in clinic in 2 weeks to review pathology report. If any concerns before then, will be seen at that time. Repeat colonoscopy in 5 years. Activity as Tolerated: Yes Discharge Diet: Regular Diet Care Plan Patient Instructions:: follow up in clinic in 2 weeks to review pathology report. If any concernsbefore then, will be seen at that time. Repeat colonoscopy in 5 years. Additional Source Comments This clinical document has been generated using [employer] software that has been certified by the Office of the National Coordinator for Health Information Technology (ONC 15.99.04.3023.Diam.31.00.0.571327) and the National Committee for Supervisor Transferring And Boxing (NCQA, as an eMeasure certified technology). FOR RECORDS PERTAINING TO PATIENTS WHO ARE OR HAVE BEEN ENROLLED IN A CHEMICAL D EPENDENCY/SUBSTANCE ABUSE PROGRAM, SOME INFORMATION MAY BE OMITTED. This clinica l summary was aggregated from multiple sources. Caution should be exercised in using it in the provision of clinical care. This summary normalizes information from multiple sources, and as a consequence, information in this document may ma terially change the coding, format and clinical context of patient data. In cristiane tion, data may be omitted in some cases. CLINICAL DECISIONS SHOULD BE BASED ON T HE PRIMARY CLINICAL RECORDS. [employer] provides no warranty or guara ntee of the accuracy or completeness of information in this document.The followi ng information is based on time limited clinical information
[2020-01-19] MEDS ORDERED: BUPIVACAINE 0.5% 30 ML (SENSORCAINE) VIAL ONE (08:17)
[2020-01-19] MEDS ORDERED: fentaNYL INJECTION 100 MCG/2 ML AMP ONE (08:18)
[2020-01-19] MEDS ORDERED: MIDAZOLAM 2 MG/2 ML (VERSED) VIAL ONE (08:18)
--- OUTSIDE RECORDS SUMMARY | 2020-01-19 08:18 | XMS REPORT | Continuity of Care Document ---
Author Organization Unknown Address Unknown Phone Unavailable Allergies Active Description Code Type Severity Reaction Onset Reported/Identified Relationship to Patient Clinical Status Yes NO KNOWN DRUG ALLERGIES UNKNOWN NO KNOWN DRUG ALLERG Yes No Known Drug Allergies [id number] Drug Allergy Unknown N/A 01/11/2020 Medications Medication Packaging Start Date St op [...] DO Ot 530.81 ESOPHAGEAL REFLUX 08/11/2017 BIRGIT HARLEY DO Ot 786.50 CHEST PAIN NOS 08/11/2017 BIRGIT HARLEY DO Ot 789.00 ABDOMINAL PAIN, UNSPECIFIED SITE 08/11/2017 KATERYNA ARTEAGA MD Ot 780.60 FEVER, UNSPECIFIED 08/11/2017 KATERYNA ARTEAGA MD Ot 959.7 LOWER LEG [...] CESAR DE GUZMAN DO Ot Z79.899 OTHER DETENTION (CURRENT) DRUG THERAPY 06/08/2019 CESAR DE GUZMAN [...] CESAR DE GUZMAN DO Ot Z79.899 OTHER DETENTION (CURRENT) DRUG THERAPY 06/14/2019 CESAR DE GUZMAN [...] CESAR DE GUZMAN DO Ot Z79.899 OTHER DETENTION (CURRENT) DRUG THERAPY 06/15/2019 CESAR DE GUZMAN [...] HERNIA WITHOUT OBSTRUCTION 06/16/2019 CESAR DE GUZMAN DO, Ot K57. 30 DVRTCLOS OF LG INT W/O PERFORATION OR AB 06/16/2019 CESAR DE GUZMAN DO Ot Z68. 35 BODY MASS INDEX (BMI) 35.0-35.9, ADULT 06/16/2019 CESAR DE GUZMAN DO Ot Z79.899 OTHER DETENTION (CURRENT) DRUG THERAPY 06/16/2019 CESAR DE GUZMAN DO, Ot Z82. 49 FAMILY HX OF ISCHEM HEART DIS AND OTH DI 06/16/2019 CESAR DE GUZMAN DO, Ot Z86.010 PERSONAL HISTORY OF COLONIC POLYPS 06/16/2019 CESAR DE GUZMAN DO, Ot Z87.891 PERSONAL HISTORY OF NICOTINE DEPENDENCE 06/16/2019 CESAR DE GUZMAN DO Ot Z90. 89 ACQUIRED ABSENCE OF OTHER ORGANS 06/24/2019 CANELO AMARO DO, Ot G47.33 OBSTRUCTIVE SLEEP APNEA (ADULT) (PEDIATR 06/24/2019 CANELO AMARO DO Ot I10 ESSENTIAL (PRIMARY) HYPERTENSION 06/24/2019 CANELO AMARO DO, Ot I67.82 CEREBRAL ISCHEMIA 06/24/2019 CANELO AMARO DO, Ot J32.0 CHRONIC MAXILLARY SINUSITIS 06/24/2019 CANELO AMARO DO, Ot G47.33 OBSTRUCTIVE SLEEP APNEA (ADULT) (PEDIATR 06/24/2019 CANELO AMARO DO Ot I10 ESSENTIAL (PRIMARY) HYPERTENSION 06/24/2019 CANELO AMARO DO, Ot I67.82 CEREBRAL ISCHEMIA 06/24/2019 CANELO AMARO DO, Ot J32.0 CHRONIC MAXILLARY SINUSITIS 01/13/2020 HUSSAIN SOTELO MD Ot M17.12 UNILATERAL PRIMARY OSTEOARTHRITIS, LEFT 01/13/2020 DEEPAK MELENDEZ, HUSSAIN Scott Ot Z01.812 ENCOUNTER FOR PREPROCEDURAL LABORATORY E 01/13/2020 HUSSAIN SOTELO MD Ot Z01.818 ENCOUNTER FOR OTHER PREPROCEDURAL EXAMIN Procedures There is no data. Results Test Result Range Complete blood count (CBC) with automate d white blood cell (WBC) differential - 01/11/20 12:24 Blood leukocytes automated count (number/volume) 11.3 10*3/uL 4.3-11.0 Blood erythrocytes automated count (number/volume) 4.76 10*6/uL 4.35-5.85 Venous blood hemoglobin measurement (mass/volume) 14.0 g/dL 13.3-17.7 Blood hematocrit (volume fraction) 42 % 40-54 Automated erythrocyte mean corpuscular volume 88 [ foz_us] 80-99 Automated erythrocyte mean corpuscular h emoglobin (mass per erythrocyte) 29 pg 25-34 Automated erythrocyte mean corpuscular h emoglobin concentration measurement (mass/volume) 34 g/dL 32-36 Automated erythrocyte distribution width ratio 14. 3 % 10.0- 14.5 Automated blood platelet count (count/volume) 195 10*3/uL 130-400 Automated blood platelet mean volume measurement 11.0 [foz_us] 7.4-10.4 Automated blood neutrophils/100 leukocytes 71 % 42-75 Automated blood lymphocytes/100 leukocytes 16 % 12-44 Blood monocytes/100 leukocytes 9 % 0-12 Automated blood eosinophils/100 leukocytes 3 % 0-10 Automated blood basophils/100 leukocytes 0 % 0-10 Blood neutrophils automated count (number/volume) 8.1 10*3 1.8-7.8 Blood lymphocytes automated count (number/volume) 1.8 10*3 1.0-4.0 Blood monocytes automated count (number/volume) 1. 1 10*3 0.0-1.0 Automated eosinophil count 0.4 10*3/uL 0 .0-0.3 Automated blood basophil count (count/volume) 0.0 10*3/uL 0.0-0.1 Complete urinalysis with reflex to cultu re - 01/11/20 12:24 Urine color determination YELLOW NRG Urine clarity determination CLEAR NR G Urine pH measurement by test strip 5.5 5-9 Specific gravity of urine by test strip >= 1.016-1.022 Urine protein assay by test strip, semi-quantitative NEGATIVE NEGATIVE Urine glucose detection by automated test strip NE GATIVE NEGATIVE Erythrocytes detection in urine sediment by light micr oscopy NEGATIVE NEGATIVE Urine ketones detection by automated test strip NE GATIVE NEGATIVE Urine nitrite detection by test strip NEGATIVE NEGATIVE Urine total bilirubin detection by test strip NEGA TIVE NEGATIVE Urine urobilinogen measurement by automated test strip (mass/volume) 0.2 mg/dL < = 1.0 Urine leukocyte esterase detection by dipstick NEG ATIVE NEGATIVE Automated urine sediment erythrocyte cou nt by microscopy (number/high power field) RARE NRG Automated urine sediment leukocyte count by microscopy (number/high power field) NONE NRG Bacteria detection in urine sediment by light microsco py NEGATIVE NRG Squamous epithelial cells detection in u rine sediment by light microscopy NONE NRG Crystals detection in urine sediment by light microsco py NONE NRG Casts detection in urine sediment by light microscopy NONE NRG Mucus detection in urine sediment by light microscopy NEGATIVE NRG Complete urinalysis with reflex to culture NO NRG PT panel in platelet poor plasma by coag ulation assay - 01/11/20 12:24 Prothrombin time (PT) in platelet poor plasma by coagu lation assay 12.9 s 12.2-14.7 INR in platelet poor plasma or blood by coagulation as say 0.9 0.8-1.4 Comprehensive metabolic panel - 01/11/20 12:24 Serum or plasma sodium measurement (moles/volume) 137 mmol/L 135-145 Serum or plasma potassium measurement (moles/volume) 4.2 mmol/L 3.6-5.0 Serum or plasma chloride measurement (moles/volume) 105 mmol/L 98-107 Carbon dioxide 22 mmol/L 21-32 Serum or plasma anion gap determination (moles/volume) 10 mmol/L 5-14 Serum or plasma urea nitrogen measurement (mass/volume ) 24 mg/dL 7-18 Serum or plasma creatinine measurement (mass/volume) 1.56 mg/dL 0.60-1.30 Serum or plasma urea nitrogen/creatinine mass ratio 15 NRG Serum or plasma creatinine measurement w ith calculation of estimated glomerular filtration rate 45 NRG Serum or plasma glucose measurement (mass/volume) 94 mg/dL 70-105 Serum or plasma calcium measurement (mass/volume) 9.1 mg/dL 8.5-10.1 Serum or plasma total bilirubin measurement (mass/volu me) 0.3 mg/dL 0.1-1.0 Serum or plasma alkaline phosphatase ailyn surement (enzymatic activity/volume) 66 U/L 40-136 Serum or plasma aspartate aminotransfera se measurement (enzymatic activity/volume) 23 U/L 5-34 Serum or plasma alanine aminotransferase measurement (enzymatic activity/volume) 25 U/L 0-55 Serum or plasma protein measurement (mass/volume) 7.5 g/dL 6.4-8.2 Serum or plasma albumin measurement (mass/volume) 3.5 g/dL 3.2-4.5 CALCIUM CORRECTED 9.5 mg/dL 8.5-10.1 Erythrocyte sedimentation rate by lucinda gren method - 01/11/20 12:24 Erythrocyte sedimentation rate by westergren method 29 mm 0- 30 Blood type T Indirect antibody screen pa iglesia - 01/11/20 12:24 ABO+Rh group AN NRG Blood group antibody screen NEGATIVE NR G Methicillin resistant Staphylococcus aur eus (MRSA) screening culture - 01/11/20 12:24 Methicillin resistant Staphylococcus aureus (MRSA) scr eening culture NEG NRG Encounters ACCT No. Visit Date/Time Discharge Status Pt. Type Provider Facility Loc./Unit Complaint [id number] 10/18/2018 17:34:00 10/18/2018 19:55: 00 [id number] 10/18/2018 19:36:16 Document Registration [id number] 01/17/2020 05:34:00 10:16:00 DIS Outpatient HUSSAIN SOTELO MD [facility] PREOP LEFT KNEE OSTEOARTHRIT IS [id number] 06/08/2019 08:44:00 11:10:00 DIS Outpatient CESAR DE GUZMAN DO [facility] ENDO HX POLYPS/SCREENING/MICHELLE D/DYSPHAGIA [id number] 06/01/2019 05:31:00 11:08:00 DIS Outpatient CESAR DE GUZMAN DO [facility] PREOP COLONOSCOPY/EGD [id number] 05/27/2019 09:08:00 23:59:59 CLS Outpatient CANELO AMARO DO [facility] RAD HEADACHE [id number] 03/18/2019 12:30:00 23:59:59 CLS Outpatient CANELO AMARO DO [facility] RAD M25.551 [id number] 08/11/2017 08:09:00 018 23:59:59 CLS Outpatient CANELO AMARO DO [facility] RAD M17.12 [id number] 04/06/2016 09:07:00 016 23:59:59 CLS Outpatient CANELO AMARO DO [facility] RAD DISC DISEASE L3 -L5 [id number] 05/03/2015 10:26:00 23:59:59 CLS Outpatient CANELO AMARO DO [facility] RAD LUMBAGO [id number] 02/07/2015 07:05:00 015 23:59:59 CLS Outpatient CANELO AMARO DO [facility] CARD CHEST PAIN [id number] 10/12/2014 11:27:00 015 23:59:59 CLS Outpatient KATERYNA ARTEAGA MD [facility] RAD TRAUMA [id number] 10/06/2014 22:56:00 015 02:06:00 DIS Emergency CANELO HERCULES DO [facility] ER FEVER [id number] 10/05/2014 07:00:00 015 23:59:59 CLS Preadmit KATERYNA ARTEAGA MD [facility] CARD CP [id number] 10/04/2014 16:43:00 015 23:59:59 CLS Outpatient KATERYNA ARTEAGA MD [facility] LAB INFLUENZA [id number] 10/04/2014 11:16:00 015 23:59:59 CLS Outpatient BIRGIT HARLEY DO [facility] CARD REFLUX, ABD LIZZETH N [id number] 10/03/2014 07:36:00 015 23:59:59 CLS Outpatient BIRGIT HARLEY DO [facility] RAD ABD PAIN,REFLUX ,ENLARGED THYROID [id number] 08/02/2014 13:27:00 015 15:00:00 DIS Outpatient CESAR DE GUZMAN DO [facility] SDC REFLUX [id number] 12/28/2013 14:38:00 014 23:59:59 CLS Outpatient CHANDLER MELENDEZ, KATERYNA Alvarado [facility] RAD NEW RENAL INSUF FICIENCY [id number] 01/19/2020 07:46:[address] Inpatient DEEPAK MELENDEZ, HUSSAIN Scott [facility] SURG OSTEOARTHRITIS LEFT KNEE [id number] 07/22/2017 12:47:00 Document Registration [id number] 07/28/2014 05:51:00 Document Registration [id number] 12/16/2011 13:44:00 Document Registration [id number] 02/18/2011 08:10:00 Document Registration [id number] 10/21/2010 11:03:00 Document Registration [id number] 05/03/2009 16:33:00 Document Registration
[2020-01-19] MEDS ORDERED: CEFUROXIME INJECTION 1,500 MG in WATER (STERILE) FOR INJECTION 15 ML IV ONE (08:30)
[2020-01-19] MEDS: LACTATED RINGERS 1,000 ML IV PRN ×2 (08:45→10:00)
[2020-01-19] MEDS ORDERED: proPOfol 200 MG/20 ML (DIPRIVAN) VIAL IV ONE (08:54)
[2020-01-19] MEDS ORDERED: LIDOCAINE PF 2% 5 ML (XYLOCAINE) VIAL ONE (08:54)
[2020-01-19] MEDS ORDERED: DEXAMETHASONE 10 MG/ML (DECADRON) 1 ML VIAL ONE (08:54)
[2020-01-19] MEDS ORDERED: ONDANSETRON 4 MG/2 ML (SDV) Z0FRAN ONE (08:54)
[2020-01-19] MEDS: SENNA W/DOCUSATE (SENOKOT S) TABLET PO SCH ×2 (09:00→20:55)
[2020-01-19] MEDS ORDERED: CEFUROXIME 1.5 GM (ZINACEF) VIAL ONE ×2 (09:03)
[2020-01-19] MEDS ORDERED: WATER (STERILE) FOR INJECTION 20 ML ONE (09:03)
--- NOTE | 2020-01-19 09:10 | Progress Note-Pre Operative ---
Pre-Operative Progress Note H&P Reviewed The H&P was reviewed, patient examined and no changes noted. Date Seen by Provider: Jan 19, 2020 Time Seen by Provider: 09:00 Date H&P Reviewed: Jan 19, 2020 Time H&P Reviewed: 07:12 Pre-Operative Diagnosis: left knee primary osteoarthritis HUSSAIN SOTELO MD Jan 19, 2020 09:10
--- NOTE | 2020-01-19 09:12 | Progress Note-Post Operative ---
Post-Operative Progess Note Surgeon (s)/Director Home Health (s) Surgeon HUSSAIN SOTELO MD Director Home Health: Bryan Rasheed Pre-Operative Diagnosis left knee primary osteoarthritis Post-Operative Diagnosis left knee primary osteoarthritis Procedure & Operative Findings Date of Procedure 01/19/20 Procedure Performed/Findings left total knee arthroplasty Anesthesia Type GETA Estimated Blood Loss Estimated blood loss (mL): minimal Specimens/Packing Specimens Removed none Packing: none HUSSAIN SOTELO MD Jan 19, 2020 09:12
--- NOTE | 2020-01-19 09:16 | D/C HH Face to Face Order ---
D/C Face to Face Orders Reconcile Patient Problems Problems Reviewed?: Yes Instructions for Patient [facility], Patient Instructions/FollowUp: three weeks Physician to follow Patient: three weeks Discharge Diet for Home: Regular Diet Patient Data-Allergies,Ht & Wt Patient Allergies: Coded Allergies: No Known Drug Allergies (Unverified , 01/11/20) Height (Feet): 5 Height (Inches): 6.00 Weight (Pounds): 220 Home Health Need/Face to Face Date of Face to Face: Jan 19, 2020 Clinical Findings: Instability, Muscle weakness, Pain with ambulation, Unsteady gait I have seen Pt [id number]: Yes Discharged To: Home Diagnosis/Conditions: left total knee arthroplasty Patient is Homebound due to: Muscle weakness, Pain w/ambulation Homebound Status Due to the above stated illness, injury or surgical procedure (medical condi tion or diagnosis) and associated clinical findings, the patient is homebound because of his/her inability to leave home except with aid of a supportive device and/or person AND leaving the home requires a considerable and taxing effort or is medically contraindicated. Pt req the following assistanc: Walker Home Health Nursing Orders Home Health Services Order: Physical Therapy-Evaluate & Treat DC knee juju and apply steri strips 02/02/20 Therapy Orders Therapy Orders: Physical Therapy, PT to assess for OT Therapy Specific Orders: Eval assistive deivces, Teach enviro modifications/safety, Gait training, Increase strength/endurance, Provider main tenance therapy, Restore ROM Certify Stmt I certify that this patient is under my care and that I, a nurse practitioner or a physician; a transportation assistant working with me, had a face to face encounter that - meets the physician face to face encounter requirements with this patient as dated. HUSSAIN SOTELO MD Jan 19, 2020 09:16
[2020-01-19] MEDS ORDERED: SEVOFLURANE (ULTANE) 15 ML INHAL SOLN ONE ×2 (10:05→10:29)
[2020-01-19] MEDS ORDERED: morphine INJ 10 MG/ML 1ML (SYR OR VIAL) IVP ONE (11:00)
[2020-01-19] MEDS ORDERED: ONDANSETRON 4 MG/2 ML (SDV) Z0FRAN IVP PRN (11:00)
[2020-01-19] MEDS ORDERED: morphine INJ 10 MG/ML 1ML (SYR OR VIAL) ONE (11:07)
[2020-01-19] MEDS ORDERED: TRANEXAMIC ACID 100 MG/ML 10 ML INJECTION IV ONE (11:21)
--- NOTE | 2020-01-19 12:43 | Progress Note ---
Standard Progress Note Progress Notes/Assess & Plan Date Seen by a Provider: Jan 19, 2020 Time Seen by a Provider: 12:42 Progress/Assessment & Plan post op check no complaints LLE-- 2plus DP pulse with brisk cap refill. INtact DF and PF of toes and ankle. intact sensation to light touch throughout. s/p LTKA mobilize as able HUSSAIN SOTELO MD Jan 19, 2020 12:43
[2020-01-19] MEDS: NS IV 1000 ML 1,000 ML IV SCH ×2 (13:12→19:56)
[2020-01-19] MEDS: oxyCODONE/APAP 5/325MG (PERCOCET 5) TABLET PO PRN ×3 (13:12→22:07)
--- NOTE | 2020-01-19 14:21 | Physical Therapy Evaluation ---
PT Evaluation-General Medical Diagnosis Admission Date Jan 19, 2020 at 07:46 Medical Diagnosis: left TKA Onset Date: Jan 26, 2020 Therapy Diagnosis Therapy Diagnosis: impaired mobility, strength, endurance, ROM Height/Weight Height (Feet): 5 Height (Inches): 6.00 Weight (Pounds): 220 Precautions Precautions/Isolations: Standard Precautions Weight Bear Status Left Lower Extremity: Left Weight Bearing/Tolerated Referral Physician: Wili Reason for Referral: Evaluation/Treatment Medical History Additional Medical History PAST MEDICAL HISTORY: Lumbar stenosis, psoriasis, obstructive sleep apnea, hypertension, gout, obesity; degenerative disk disease, lumbar spine; reflux, basal cell carcinoma of the face, hemorrhoids. PAST SURGICAL HISTORY: Tonsillectomy, right index finger, colonoscopy, L3 through L5 decompressive laminectomy, and fusion, left knee arthroscopy. Social History Home: Single Level Current Living Status: Spouse Entry Into Home: Stairs With Railing PT Steps Into Home: 4 Prior Prior Level of Function SCALE: Activities may be completed with or without assistive devices. 5-Exhnxnmwan-qpotmsu completes the activity by him/herself with no assistance from a helper. 5-Set-up or Clean-up Assistance-helper sets up or cleans up; patient completes activity. [place] assists only prior to or following the activity. 4-Supervision or Touching Assistance-helper provides verbal cues and/or touchin g/steadying and/or contact guard assistance as patient completes activity. Assistance may be provided throughout the activity or intermittently. 3-Partial/Moderate Assistance-helper does LESS THAN HALF the effort. [place] lifts, holds or supports trunk or limbs, but provides less than half the effort. 2-Substantial/Maximal Assistance-helper does MORE THAN HALF the effort. [place] lifts or holds trunk or limbs and provides more than half the effort. 9-Qntteyxrp-nytuix does ALL the effort. Patient does none of the effort to complete the activity. Or, the assistance of 2 or more helpers is required for the patient to complete the activity. If activity was not attempted, code reason: 7-Patient Refused. 9-Not Applicable-not attempted and the patient did not perform the activity before the current illness, exacerbation or injury. 10-Not Attempted due to Environmental Limitations-(lack of equipment, weather restraints, etc.). 88-Not Attempted due to Medical Conditions or Safety Concerns. Bed Mobility: 6 Transfers (B,C,W/C): 6 Gait: 6 Stairs: 6 Indoor Mobility (Ambulation): Independent Stairs: Independent PT Evaluation-Current Subjective Patient in bed pre tx, agrees to PT,has 8/10 pain in left knee. Pt/Family Goals to be independent at home Objective Patient Orientation: Person, Place, Situation Attachments: IV ROM/Strength ROM Lower Extremities left knee extension +2 degrees, flexion 20 degrees Sensory Hearing: Functional Sensation Right Lower Extremit: Intact Sensation Left Lower Extremity: Intact Transfers Roll Left to Right (QC): 6 Sit to Lying (QC): 3 Lying to Sitting/Side of Bed(Q: 3 Sit to Stand (QC): 4 Chair/Nsg-qm-Fcnoe Xfer(QC): 4 Toilet Transfer (QC): 4 Min assist with left leg getting into and out of bed, CGA for sit to stand and transfers. Gait Does the Patient Walk?: Yes Mode of Locomotion: Walk Anticipated Mode of Locomotion: Walk Walk 10 feet (QC): 4 Distance: 20' Gait Assistive Device: FWW Comments/Gait Description Gait is antalgic, very little left knee flexion, poor step through. Patient ambulated to the restroom and back, CGA for toilet transfer and cues for positioning and safety, ambulated back to bed. Patient needed no assist with the actual toileting. Balance Sitting Static: Normal Sitting Dynamic: Normal Standing Static: Good Standing Dynamic: Good Treatment LLE supine total knee protocol x10 (AP, QS, HS, SAQ, SLR). CPM donned and fit to patient's leg and set to 40/-2, he seemed to tolerate this well even though it is more knee flexion than he was able to do earlier. Assessment/Needs Patient has impaired mobility, strength, endurance, ROM. Patient has poor knee flexion. Patient in bed post tx with nurse call, phone, tray, all needs met, has CPM donned, polar care on, SCD's on. Rehab Potential: Fair PT Rotary Drier Feeder Goals Rotary Drier Feeder Goals PT Rotary Drier Feeder Goals Time Frame: Jan 26, 2020 Roll Left & Right (QC): 6 Sit to Lying (QC): 6 Lying-Sitting on Side/Bed(QC): 6 Sit to Stand (QC): 6 Chair/Gfk-vw-Dlsac Xfer(QC): 6 Walk 10 feet (QC): 6 Walk 50ft with 2 Turns (QC): 6 Walk 150 ft (QC): 6 PT Plan Problem List Problem List: Activity Tolerance, Functional Strength, Safety, Balance, Gait, Transfer, Bed Mobility, ROM Treatment/Plan Treatment Plan: Continue Plan of Care Treatment Plan: Bed Mobility, Education, Functional Activity Kandice, Functional Strength, Gait, Safety, Therapeutic Exercise, Transfers Treatment Duration: Jan 26, 2020 Frequency: 11 times per week Estimated Hrs Per Day: .25 hour per day Patient and/or Family Agrees t: Yes Safety Risks/Education Patient Education: Gait Training, Transfer Techniques, Reviewed Use of Ice, Correct Positioning, Safety Issues Teaching Recipient: Patient Teaching Methods: Demonstration, Discussion Response to Teaching: Reinforcement Needed Discharge Recommendations Plan Patient will perform bed mobility and transfer training, balance and endurance training, functional strengthening, stair training, gait training, and education, to improve functional mobility and independence at home. Therapy Discharge Recommendati: Home & Family, Post Acute PT Time/GCodes Time In: 1336 Time Out: 1400 Total Billed Treatment Time: 24 Total Billed Treatment 1 visit EVL 14' FA 10' MARY GREENE PT Jan 19, 2020 14:21
--- NOTE | 2020-01-19 14:35 | Diagnostic Imaging Report ---
INDICATION: Status post knee replacement. COMPARISON: None. FINDINGS: Two views of the left knee were obtained. Expected postoperative changes are seen from left knee total arthroplasty. Femoral and tibial components appear well-seated. There is no evidence of periprosthetic fracture. There is a small amount of subcutaneous emphysema in the soft tissues over the knee. Skin juju are seen centrally over the anterior aspect of the knee. No unexpected radiopaque foreign bodies are identified. IMPRESSION: Expected postsurgical changes from left knee total arthroplasty, as described above. No unexpected radiopaque foreign bodies. Dictated by: Dictated on workstation # [id number]
--- NOTE | 2020-01-19 15:00 | OPERATIVE REPORT ---
DATE OF SERVICE: 01/19/2020 PREOPERATIVE DIAGNOSIS: Left knee osteoarthrosis primary osteoarthritis. POSTOPERATVIVE DIAGNOSIS: Left knee osteoarthrosis primary osteoarthritis. PROCEDURE PERFORMED: Left total knee arthroplasty. SURGEON: Cresencio Sotelo MD SHREDDED FILLER HOPPER FEEDER: Bryan Rasheed, who assisted throughout the procedure and closed the incision. ANESTHESIA: General endotracheal by Italia Buchanan CRNA. TOURNIQUET TIME: Approximately 65 minutes at 300 mmHg. ESTIMATED BLOOD LOSS: Minimal. DRAINS: None. COMPLICATIONS: None. POSTOPERATIVE PLAN: Routine total knee arthroplasty protocol. MATERIALS: Microport cemented size 4 femur, cemented size 4 tibia with 10 mm insert and cemented size 32 patellar button. The patient was transferred to the recovery room awake and in stable condition. STATEMENT OF MEDICAL NECESSITY: The patient is a 64-year-old gentleman with a longstanding progressive left knee pain. He had undergone arthroscopy, which revealed grade IV chondral changes throughout the patellofemoral and medial compartments. He has undergone treatment with injections, anti-inflammatories and rest without relief. Due to functional impairment and progressive loss of function, the patient elected to proceed with surgical intervention. DESCRIPTION OF PROCEDURE: After risks and benefits of procedure were discussed and questions were answered and informed consent was signed and placed on chart, the operative site was confirmed in the preoperative holding area initialed by the surgeon. The patient was then transferred to the operating room and after adequate levels of general endotracheal anesthetic were obtained, a timeout was called, confirming the operative site. The left lower extremity was prepped and draped in the usual sterile fashion. Knee joint was prepped and draped in the usual sterile fashion. The leg elevated and the knee flexed. Tourniquet was inflated to 300 mmHg. A standard anterior approach was utilized. Hemostasis was obtained with cautery. Medial parapatellar arthrotomy was performed leaving a 1 cm cuff on the patella for later reattachment. A portion of the fat pad was resected. A subperiosteal release was performed in the proximal medial tibia being careful to stay on the bony surface. The ACL was resected. The intramedullary guide was passed into the femur and the distal cutting block was placed. The femur was sized to a size 4. The 4 cutting block was placed parallel to the epicondylar axis and cuts were made from posterior to anterior. A subperiosteal release was then carefully performed on the posterior distal femur, being careful to stay on the bony surface. Intramedullary guide was passed into the tibia. The cutting block was placed. The drop deonna was transected in the intermalleolar axis and the cut was made. The baseplate was placed and felt to be in excellent position by the drop deonna. This was then prepared with the drill and keel punch. The femoral trial was placed and trochlear cut was made. The patella was then prepared by resecting 10 mm off the undersurface and placed in the peg guide. The peg holes were drilled. A 10 mm insert was placed on the tibia. Full extension was easily obtained, 120 degrees of flexion with gravity was easily obtained. There was no anterior/posterior or medial/lateral laxity in flexion or extension. The patella tracked well. The trials were removed. The joint was copiously irrigated with pulse lavage. The bone ends were irrigated and dried after placing the periarticular block in the posterior capsule, medial and lateral retinaculum, extensor mechanism and subcutaneous tissues. The tibial baseplate was cemented in position. Excessive cement was removed. Superior surface was irrigated and dried and the polyethylene insert was placed. The distal femur was irrigated and dried and the final femoral prosthesis was then cemented into position. Excessive cement was removed. The knee was brought out into full extension until the cement had cured. The undersurface of the patella was irrigated and dried. The patellar button was cemented into position. Excessive cement was removed. This was held in position until cement had cured. Once the cement had cured, the knee was taken through range of motion. Full extension was easily obtained, 120 degrees of flexion with gravity was easily obtained. There was no anterior/posterior or medial/lateral laxity in flexion or extension. The joint was further irrigated with pulse lavage. Arthrotomy was closed with #2 Tevdek in a qqmbcr-xo-efyjl interrupted fashion. The knee was flexed. Patella tracked well. There was no undue tension noted at the repair site. The subcutaneous tissues were irrigated with pulse lavage using a total of 3 liters throughout the procedure. A 0 Vicryl was used for the deep subcutaneous tissue, 2-0 Vicryl for the superficial subcutaneous tissue, juju used on the skin. A soft dressing was applied. The tourniquet was deflated. The patient was transferred to the recovery room awake and in stable condition. Job ID: [id number] DocumentID: [id number] Dictated Date: 01/19/2020 10:53:44 Direct Casting Operator Date: 01/19/2020 14:59:26 Dictated By: CRESENCIO SOTELO MD
[2020-01-19] MEDS: CEFUROXIME INJECTION 750 MG in WATER (STERILE) FOR INJECTION 10 ML IV SCH (15:29)
--- NOTE | 2020-01-19 15:38 | Consultation - Hospitalist ---
HPI History of Present Illness: HPI/Chief Complaint Pt is a 64yoCM who was admitted for left TKA. He states he is doing well currently and pain is controlled. He has some high blood pressure at baseline but it is well controlled. He has no complaints at this time. 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 I am consulted for medical management. Source: patient Date Seen 01/19/20 Attending Physician Cresencio Harp MD PCP Alex Grewal DO Referring Physician Date of Admission Jan 19, 2020 at 07:46 Home Medications & Allergies Home Medications Reviewed patient Home Medication Reconciliation performed by pharmacy medication reconciliations chemical research technician and/or nursing. Patients Allergies have been reviewed. Allergies Allergies Coded Allergies No Known Drug Allergies (Unverified01/11/20) Past Grkzcdk-Taxhmd-Abvknc Hx Past Med/Social Hx: Reviewed Nursing Past Med/Soc Hx Patient Social History Alcohol Use: Denies Use Recreational Drug Use: No Smoking Status: Former Smoker Former Smoker, Quit: Jan 10, 2009 2nd Hand Smoke Exposure: No Physical Abuse Screen: No Sexual Abuse: No Recent Foreign Travel: No Contact w/other who traveled: No Recent Hopitalizations: No Recent Infectious Disease Expo: No Immunizations Up To Date Date of Pneumonia Vaccine: Apr 13, 2018 Date of Influenza Vaccine: Apr 12, 2019 Seasonal Allergies Seasonal Allergies: Yes Past Medical History Surgeries: Adenoidectomy, Orthopedic, Tonsillectomy Currently Using CPAP: No Currently Using BIPAP: No Cardiac: Hypertension Neurological: Headaches /Migraines Sexually Transmitted Disease: No HIV/AIDS: No Gastrointestinal: Gastroesophageal Reflux, Chronic Constipation Musculoskeletal: Degenerate Disk Disease, Arthritis Loss of Vision: Denies Hearing Impairment: Denies Cancer: Skin Did You Recieve Any Treatments: Yes What Type of Treatment Did You: Surgical Intervention Skin/Integumentary: Eczema History of Blood Disorders: No Adverse Reaction to Blood Oliveira: No (N/A) Review of Systems Constitutional: No chills, No fever Respiratory: No short of breath Gastrointestinal: No nausea, No vomiting Musculoskeletal: joint pain Physical Exam Physical Exam Vital Signs Vital Signs - First Documented 01/19/20 07:50 Temp 37.0 Pulse 76 Resp 16 B/P (MAP) 142/72 Pulse Ox 96 O2 Delivery Room Air Capillary Refill : Less Than 3 Seconds Height, Weight, BMI Height: 5'6.00" Weight: 220lbs. oz. 99.696300ub; 34.63 BMI Method:Stated General Appearance: No Apparent Distress, WD/WN Respiratory: Lungs Clear, No Accessory Muscle Use, No Respiratory Distress Cardiovascular: Regular Rate, Rhythm, No Murmur Gastrointestinal: Normal Bowel Sounds, Non Tender, Soft Neurologic/Psychiatric: Alert, Oriented x3 Results Results/Procedures Labs Patient resulted labs reviewed. Imaging: Reviewed Imaging Report Imaging [facility], [place] NAME: [facility] REC#: [id number] PT STATUS: ADM IN : 1955 PHYSICIAN: SHELLI PASTOR ADMIT DATE: 01/19/20 Draft Date of Exam:01/19/20 KNEE, LEFT, 2 VIEWS (AP & LAT) INDICATION: Status post knee replacement. COMPARISON: None. FINDINGS: Two views of the left knee were obtained. Expected postoperative changes are seen from left knee total arthroplasty. Femoral and tibial components appear well-seated. There is no evidence of periprosthetic fracture. There is a small amount of subcutaneous emphysema in the soft tissues over the knee. Skin juju are seen centrally over the anterior aspect of the knee. No unexpected radiopaque foreign bodies are identified. IMPRESSION: Expected postsurgical changes from left knee total arthroplasty, as described above. No unexpected radiopaque foreign bodies. Dictated on workstation # [id number] Dict: 01/19/20 1429 Trans: 01/19/20 1435 [id number] Interpreted by: PARESH HARDY MD Electronically signed by: Assessment/Plan Assessment and Plan Assess & Plan/Chief Complaint Left knee osteoarthritis S/p TKA POD #0 Pain control Bowel regimen Lovenox PT/OT HTN GERD Continue home meds Clinical Quality Measures DVT/VTE Risk/Contraindication: Risk Factor Score Per Nursin RFS Level Per Nursing on Admit: 4+=Very High RENATE PAULA MD Jan 19, 2020 15:38
[2020-01-19] MEDS: traZODone 50 MG (DESYREL) TAB PO SCH (20:55)
[2020-01-19] MEDS: BETAMETHASONE DIPRO (AUGMENTED) 0.05% CREAM 15 GM TOP SCH (20:57)
[2020-01-20] MEDS: CEFUROXIME INJECTION 750 MG in WATER (STERILE) FOR INJECTION 10 ML IV SCH (00:33)
[2020-01-20 04:28] VITALS: BP 148/71
[2020-01-20] MEDS: oxyCODONE/APAP 5/325MG (PERCOCET 5) TABLET PO PRN ×5 (05:12→20:52)
[2020-01-20] MEDS: MULTIVIT W/MINERALS TAB (THERAGRAN M) PO SCH (05:12)
--- NOTE | 2020-01-20 06:51 | Anesthesia-General Post-Op ---
General Patient Condition Mental Status/LOC: Same as Preop Cardiovascular: Satisfactory Nausea/Vomiting: Absent Respiratory: Satisfactory Pain: Controlled Complications: Absent Post Op Complications Complications None Follow Up Care/Instructions Patient Instructions None needed. Anesthesia/Patient Condition Patient Condition Patient is doing well, no complaints, stable vital signs, no apparent adverse anesthesia problems. No complications reported per nursing. SHREYAS ORDAZ CRNA Jan 20, 2020 06:51
--- NOTE | 2020-01-20 07:58 | Progress Note ---
Standard Progress Note Progress Notes/Assess & Plan Date Seen by a Provider: Jan 20, 2020 Time Seen by a Provider: 07:57 Progress/Assessment & Plan post op check no complaints LLE-- 2plus DP pulse with brisk cap refill. INtact DF and PF of toes and ankle. intact sensation to light touch throughout. s/p LTKA mobilize as able Final Diagnosis no complaints Vital Signs Date Time Temp Pulse Resp B/P (MAP) Pulse Ox O2 Delivery O2 Flow Rate FiO2 01/20/20 04:28 37.1 64 15 148/71 (96) 97 Room Air 01/19/20 23:59 37.5 67 18 138/67 (90) 95 Room Air 01/19/20 21:00 Room Air 01/19/20 19:28 36.9 67 18 142/79 (100) 100 Room Air 01/19/20 15:41 37.2 101 16 148/78 (101) 96 Room Air 01/19/20 15:09 90 Room Air 01/19/20 14:03 37.0 18 01/19/20 13:32 18 01/19/20 11:35 Room Air 01/19/20 11:30 37 6 141/69 (93) 99 Room Air 01/19/20 11:22 OxyMask 4 01/19/20 11:20 16 134/62 (86) 97 OxyMask 4 01/19/20 11:12 OxyMask 6 01/19/20 11:10 14 145/65 (91) 100 OxyMask 6 01/19/20 11:02 OxyMask 8 01/19/20 11:00 16 149/72 (97) 99 OxyMask 8 01/19/20 10:55 14 155/72 (99) 99 OxyMask 10 01/19/20 10:52 OxyMask 10 01/19/20 10:42 OxyMask 10 01/19/20 10:42 36.9 18 129/61 (83) 98 OxyMask 10 I & O 01/20/20 07:00 Intake Total 2635 ml Output Total 1550 ml Balance 1085 ml Laboratory Tests Test 01/20/20 05:50 Range/Units Hemoglobin 14.0 13.3-17.7 G/DL Hematocrit 42 40-54 % radiographs--HW well positioned without fracture LLE- able to perform SLR. no calf tenderness. NVI distally s/p CINDY PT/OT HUSSAIN SOTELO MD Jan 20, 2020 07:58
[2020-01-20 08:00] VITALS: BP 156/72
[2020-01-20] MEDS: LOSARTAN 50 MG (COZAAR) TAB PO SCH (09:01)
[2020-01-20] MEDS: ENOXAPARIN 30 MG/0.3 ML (LOVENOX) SYR SC SCH ×2 (09:01→20:53)
[2020-01-20] MEDS: LORATADINE (CLARITIN) 10 MG TAB PO SCH (09:01)
[2020-01-20] MEDS: PANTOPRAZOLE 40 MG (PROTONIX) TAB PO SCH (09:01)
[2020-01-20] MEDS: SENNA W/DOCUSATE (SENOKOT S) TABLET PO SCH ×2 (09:02→20:52)
[2020-01-20] MEDS: ASPIRIN E.C. 81 MG (ECOTRIN) TAB PO SCH (09:02)
[2020-01-20] MEDS: BETAMETHASONE DIPRO (AUGMENTED) 0.05% CREAM 15 GM TOP SCH ×2 (09:03→20:54)
--- NOTE | 2020-01-20 10:13 | Physical Therapy Daily Note ---
PT Daily Note-Current Subjective Patient agrees to PT. Patient utilizing APPLICATIONS TRAINER and pain pills. Pain Numeric Pain Scale: 8 Location: Left Location Body Site: Knee Pain Description: Acute Mental Status Patient Orientation: Normal For Age Attachments: Polar Pack, IV Transfers SCALE: Activities may be completed with or without assistive devices. 6-Zjkovaiemz-bnvaioe completes the activity by him/herself with no assistance from a helper. 5-Set-up or Clean-up Assistance-helper sets up or cleans up; patient completes activity. [place] assists only prior to or following the activity. 4-Supervision or Touching Assistance-helper provides verbal cues and/or touching/steadying and/or contact guard assistance as patient completes activity. Assistance may be provided throughout the activity or intermittently. 3-Partial/Moderate Assistance-helper does LESS THAN HALF the effort. [place] lifts, holds or supports trunk or limbs, but provides less than half the effort. 2-Substantial/Maximal Assistance-helper does MORE THAN HALF the effort. [place] lifts or holds trunk or limbs and provides more than half the effort. 5-Fnydvqovn-vgmbxn does ALL the effort. Patient does none of the effort to complete the activity. Or, the assistance of 2 or more helpers is required for the patient to complete the activity. If activity was not attempted, code reason: 7-Patient Refused. 9-Not Applicable-not attempted and the patient did not perform the activity before the current illness, exacerbation or injury. 10-Not Attempted due to Environmental Limitations-(lack of equipment, weather restraints, etc.). 88-Not Attempted due to Medical Conditions or Safety Concerns. Roll Left & Right (QC): 6 Lying to Sitting/Side of Bed(Q: 6 Sit to Stand (QC): 6 Chair/Rdc-ia-Jjzii Xfer(QC): 6 Weight Bearing Left Lower Extremity: Left Weight Bearing/Tolerated Gait Training Does the Patient Walk?: Yes Distance: 225' Walk 10 feet (QC): 5 Walk 50 ft with 2 Turns(QC): 5 Walk 150 ft (QC): 5 Gait Assistive Device: FWW reciprocal pattern/antalgic Exercises Supine Ex: Ankle pumps, Quad Set, Heel Slides, Straight leg raise Supine Reps: 15 (2 sets) Seated Therapy Exercises: Long arc quads Seated Reps: 15 (2 sets) Assessment Patient up in recliner with needs met. Patient instructed to perform HEP issued by physician PRN during day. Patient voices understanding. Plan dismissal to home with spouse and home health in a.m. PT Chcf Goals Counterintelligence/Humint Specialist Goals PT Counterintelligence/Humint Specialist Goals Time Frame: Jan 26, 2020 Roll Left & Right (QC): 6 Sit to Lying (QC): 6 Lying-Sitting on Side/Bed(QC): 6 Sit to Stand (QC): 6 Chair/Bvk-fk-[place] Xfer(QC): 6 Walk 10 feet (QC): 6 Walk 50ft with 2 Turns (QC): 6 Walk 150 ft (QC): 6 PT Plan Treatment/Plan Treatment Plan: Continue Plan of Care Treatment Plan: Bed Mobility, Education, Functional Activity Kandice, Functional Strength, Gait, Safety, Therapeutic Exercise, Transfers Treatment Duration: Jan 26, 2020 Frequency: 11 times per week Estimated Hrs Per Day: .25 hour per day Patient and/or Family Agrees t: Yes Time/GCodes Time In: 830 Time Out: 853 Total Billed Treatment Time: 23 Total Billed Treatment 1 visit EX 13 min GT 10 min NAA JACKSON PT Jan 20, 2020 10:13
--- NOTE | 2020-01-20 11:26 | NUR ---
CM/SS visited with the patient for social service consult. Plan: The patient will discharge home with home health. Home Health: The patient was provided with a patient preference form and stated his currently uses [facility] and would to use them as well. CM/SS contacted Francia from the agency and made a referral. CM/SS faxed clinical, discharge, and PT referral form. Plan to start services Friday. Equipment: The patient reports that he already has a front wheeled walker that used to be his 's. The patient reports that he has 5 stairs to get into the home but lives in a one level home. He states physical therapy is working with him to get him ready. No further needs at this time.
--- NOTE | 2020-01-20 11:36 | NUR ---
IRF Evaluation Determination: Denied Explanation: Chart review complete and it appears patient is ambulating (225ft, FWW) with set-up, as well as transferring and completing bed mobility with independence; therefore, patient does not require intensive therapies. Thank you for this referral.
--- NOTE | 2020-01-20 11:50 | Occupational Therapy Eval ---
OT Evaluation-General/PLF Medical Diagnosis Admission Date Jan 19, 2020 at 07:46 Medical Diagnosis: left TKA Onset Date: Jan 26, 2020 Therapy Diagnosis Therapy Diagnosis: Weakness, Decreased ADL skills Height/Weight Height (Feet): 5 Height (Inches): 6.00 Weight (Pounds): 220 Precautions Precautions/Isolations: Fall Prevention, Standard Precautions Weight Bear Status Weight Bearing Restriction: Weight Bearing/Tolerated Referral Physician: Wili Referral Reason: Activity Tolerance, Self Care, Evaluation/Treatment, Strengthening/ROM Medical History Pertinent Medical History: Arthritis, GERD Additional Medical History DDD Current History Pt. had elective knee replacement. Reviewed History: Yes Social History Home: Single Level Current Living Status: Spouse Entry Into Home: Stairs With Railing Steps Into Home: 5 Pt. reports that his spouse is not in good health,but that she will be home with him and can assist as needed. He also reports that his step son lives with them, and that he has two granddaughters that can assist. ADL-Prior Level of Function SCALE: Activities may be completed with or without assistive devices. 6-Tvpipwgsdl-nstxfby completes the activity by him/herself with no assistance from a helper. 5-Set-up or Clean-up Assistance-helper sets up or cleans up; patient completes activity. [place] assists only prior to or following the activity. 4-Supervision or Touching Assistance-helper provides verbal cues and/or touching/steadying and/or contact guard assistance as patient completes activity. Assistance may be provided throughout the activity or intermittently. 3-Partial/Moderate Assistance-helper does LESS THAN HALF the effort. [place] lifts, holds or supports trunk or limbs, but provides less than half the effort. 2-Substantial/Maximal Assistance-helper does MORE THAN HALF the effort. [place] lifts or holds trunk or limbs and provides more than half the effort. 9-Zxqcidufz-teaihm does ALL the effort. Patient does none of the effort to complete the activity. Or, the assistance of 2 or more helpers is required for the patient to complete the activity. If activity was not attempted, code reason: 7-Patient Refused. 9-Not Applicable-not attempted and the patient did not perform the activity before the current illness, exacerbation or injury. 10-Not Attempted due to Environmental Limitations-(lack of equipment, weather restraints, etc.). 88-Not Attempted due to Medical Conditions or Safety Concerns. ADL PLOF Comments Pt. reports that he is independent with daily skills. Self Care: Independent Functional Cognition: Independent DME/Equipment: Bath Chair, Bedside Commode, Shower, Tub/Shower DME/Equipment Comments Pt. states that he has a walker that he can use that belonged to his . He also has a program manager rn at home. 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 Drive Self: Yes OT Current Status Subjective Pt. states that he is having mild pain in left knee, since he just walked. Pt. does not report pain level. He is encouraged to use his AUGER SUPERVISOR pump. He does push this. Appearance Pt. is up in chair when OT entered room. Pt. states that he just ambulated with PT. He reports that he is tired. Mental Status/Objective Patient Orientation: Person, Place, Time, Situation Attachments: IV, Polar Pack Current Upper Extremity ROM Pt. reports that he has no issues or limitations in bilateral shoulders/UE. ADL-Treatment Eating (QC): 6 (As reported by pt.) On/Off Footwear (QC): 2 Pt. is up in chair. Pt. is able to stand at walker with SBA. He is able to sit back in chair with SBA. Pt. attempts to doff slipper socks, but is unable to do so. Pt. is educated on use of sock aide and dressing stick for footwear/LE dressing, and pt. verbalizes understanding. OT will bring this in in a.m. to practice with. Pt. is issued LH sponge and toilet tongs, as he states that he may have trouble with flavia care after toileting. Pt. is educated on use of both pieces of equipment and verbalizes understanding. Pt. reports that he will have assistance at home, and that he intends to have home health PT come in. OT applies [employer] care ice pack before leaving. Pt. up in chair with all needs met. Education OT Patient Education: Correct positioning, Modified ADL techniques, Progress toward Goal/Update tx plan, Purpose of tx/functional activities, Reviewed precautions, Rehab process, Transfer techniques, Use of adapted equipment Teaching Recipient: Patient Teaching Methods: Demonstration, Discussion Response to Teaching: Verbalize Understanding, Return Demonstration OT Egg Caser Goals [facility] Goals Time Frame: Jan 22, 2020 Lower Body Dressing (QC): 4 (SBA with AE) On/Off Footwear (QC): 4 (SBA with AE) Additional Goals: 1-Demonstrate ADL Tasks, 2-Verbalize Understanding, 3- ImproveStrength/Kandice 1=Demonstrate adherence to instructed precautions during ADL tasks. 2=Patient will verbalize/demonstrate understanding of assistive devices/modifications for ADL. 3=Patient will improve strength/tolerance for activity to enable patient to perform ADL's. OT Education/Plan Problem List/Assessment Assessment: Decreased Activ Tolerance, Impaired I ADL's, Impaired Self-Care Skills Discharge Recommendations Plan/Recommendations: Continue POC Therapy Discharge Recommendati: Home & Family Equpiment Recommendations-D/C: Hip Kit Treatment Plan/Plan of Care Treatment,Training & Education: Yes Patient would benefit from OT for education, treatment and training to promote independence in ADL's, mobility, safety and/or upper extremity function for ADL's. Plan of Care: ADL Retraining, Functional Mobility Treatment Duration: Jan 22, 2020 Frequency: 2 times per week Estimated Hrs Per Day: .25 hour per day Agreement: Yes Rehab Potential: Good Time/GCodes Start Time: 09:15 Stop Time: 09:35 Total Time Billed (hr/min): 20 Billed Treatment Time 1, KRISTEN FAY OT Jan 20, 2020 11:50
[2020-01-20 12:00] VITALS: BP 173/77
--- NOTE | 2020-01-20 14:36 | Physical Therapy Daily Note ---
PT Daily Note-Current Subjective Patient agrees to PT. Pain Numeric Pain Scale: 8 Location: Left Location Body Site: Knee Pain Description: Acute Mental Status Patient Orientation: Normal For Age Attachments: Polar Pack, IV Transfers SCALE: Activities may be completed with or without assistive devices. 0-Lhyeyxvqdz-odznotp completes the activity by him/herself with no assistance from a helper. 5-Set-up or Clean-up Assistance-helper sets up or cleans up; patient completes activity. [place] assists only prior to or following the activity. 4-Supervision or Touching Assistance-helper provides verbal cues and/or touching/steadying and/or contact guard assistance as patient completes activity. Assistance may be provided throughout the activity or intermittently. 3-Partial/Moderate Assistance-helper does LESS THAN HALF the effort. [place] lifts, holds or supports trunk or limbs, but provides less than half the effort. 2-Substantial/Maximal Assistance-helper does MORE THAN HALF the effort. [place] lifts or holds trunk or limbs and provides more than half the effort. 2-Qqyvjmtlu-hapqlh does ALL the effort. Patient does none of the effort to co mplete the activity. Or, the assistance of 2 or more helpers is required for the patient to complete the activity. If activity was not attempted, code reason: 7-Patient Refused. 9-Not Applicable-not attempted and the patient did not perform the activity before the current illness, exacerbation or injury. 10-Not Attempted due to Environmental Limitations-(lack of equipment, weather restraints, etc.). 88-Not Attempted due to Medical Conditions or Safety Concerns. Sit to Lying (QC): 6 Sit to Stand (QC): 6 Chair/Tza-dc-Pkgri Xfer(QC): 6 Weight Bearing Left Lower Extremity: Left Weight Bearing/Tolerated Gait Training Does the Patient Walk?: Yes Distance: 225' Walk 10 feet (QC): 6 Walk 50 ft with 2 Turns(QC): 6 Walk 150 ft (QC): 6 Gait Assistive Device: FWW steady, antalgic gait sequence Exercises Supine Ex: Ankle pumps, Quad Set, Heel Slides, Straight leg raise Supine Reps: 15 Seated Therapy Exercises: Long arc quads Seated Reps: 15 Treatments CPM 0-[address] with polar pack Assessment Patient progressing with treatment plan and is highly motivated with progress. PT Care Home Goals Care Home Goals PT Cover Inspector Goals Time Frame: Jan 26, 2020 Roll Left & Right (QC): 6 Sit to Lying (QC): 6 Lying-Sitting on Side/Bed(QC): 6 Sit to Stand (QC): 6 Chair/Iml-bk-Iunih Xfer(QC): 6 Walk 10 feet (QC): 6 Walk 50ft with 2 Turns (QC): 6 Walk 150 ft (QC): 6 PT Plan Treatment/Plan Treatment Plan: Continue Plan of Care Treatment Plan: Bed Mobility, Education, Functional Activity Kandice, Functional Strength, Gait, Safety, Therapeutic Exercise, Transfers Treatment Duration: Jan 26, 2020 Frequency: 11 times per week Estimated Hrs Per Day: .25 hour per day Patient and/or Family Agrees t: Yes Time/GCodes Time In: 1305 Time Out: 1330 Total Billed Treatment Time: 25 Total Billed Treatment 1 visit EX 14 min Gt 11 min NAA JACKSON PT Jan 20, 2020 14:36
[2020-01-20] MEDS: NS IV 1000 ML 1,000 ML IV SCH ×2 (15:05→20:51)
[2020-01-20 15:50] VITALS: BP 180/85
[2020-01-20 19:20] VITALS: BP 175/80
--- NOTE | 2020-01-20 20:40 | NUR ---
PTS BP HAS BEEN TRENDING UPWARD THROUGHOUT THE DAY WITH THE MOST RECENT 180/85. PATIENT REGULARLY TAKES LOSARTAN 50 MG PO DAILY, WHICH WAS GIVEN AT [address] ARTEAGA NOTIFIED. NEW ORDERS TO GIVE LOSARTAN 50 MG PO X1 NOW.
--- NOTE | 2020-01-20 20:50 | NUR ---
PT RATING PAIN 8/10 TO THE LEFT KNEE AND REQUESTING PAIN MEDICATION. THIS RN ASKED WHEN THE PATIENT LAST USED HIS FINANCIAL INSTITUTION TREASURER PUMP. PT STATED "I HAVEN'T REALLY BEEN USING IT MUCH." HOWEVER, PT HAS CONSISTENTLY RATED PAIN 8/10. THIS RN REEDUCATED PT ON THE PURPOSE AND FREQUENCY OF FINANCIAL INSTITUTION TREASURER PUMP FOR PAIN MANAGEMENT. PT VERBALIZES UNDERSTANDING OF TEACHINGS.
[2020-01-20] MEDS: traZODone 50 MG (DESYREL) TAB PO SCH (20:51)
[2020-01-20] MEDS ORDERED: LOSARTAN 50 MG (COZAAR) TAB PO ONE (21:00)
[2020-01-20 23:55] VITALS: BP 176/92
[2020-01-21] MEDS: oxyCODONE/APAP 5/325MG (PERCOCET 5) TABLET PO PRN ×2 (00:05→03:24)
--- NOTE | 2020-01-21 02:24 | DISCHARGE SUMMARY ---
DATE OF SERVICE: DIAGNOSES: 1. Left knee primary osteoarthritis. 2. Lumbar stenosis. 3. Psoriasis. 4. Sleep apnea. 5. Hypertension. 6. Gout. 7. Degenerative disk disease. 8. Basal cell carcinoma. PROCEDURE: Left total knee arthroplasty. SUMMARY: The patient is a 64-year-old gentleman, who underwent a left total knee arthroplasty on the day of admission. Postoperatively, he did well. At the time of discharge, his wound was clean and dry, had no calf tenderness. Negative Homans sign. He was tolerating his diet well and tolerating pain with oral pain medication. CONDITION AT DISCHARGE: Good. DISCHARGE DIET: Regular. FOLLOWUP: Followup is in three weeks. Home physical therapy has been arranged. DISCHARGE MEDICATIONS: Home medications, Percocet as needed for pain and one aspirin a day for 30 days. ACTIVITIES: Weightbearing as tolerated with a walker. Job ID: [id number] DocumentID: [id number] Dictated Date: 01/20/2020 15:36:48 Heater Room Helper Date: 01/21/2020 02:23:57 Dictated By: HUSSAIN SOTELO MD
[2020-01-21] MEDS: MULTIVIT W/MINERALS TAB (THERAGRAN M) PO SCH (03:24)
[2020-01-21 04:08] VITALS: BP 150/74
[2020-01-21 06:15] LABS: HEMOGLOBIN 12.7 G/DL (13.3-17.7)
--- NOTE | 2020-01-21 07:02 | Progress Note ---
Standard Progress Note Progress Notes/Assess & Plan Date Seen by a Provider: Jan 21, 2020 Time Seen by a Provider: 07:01 Progress/Assessment & Plan post op check no complaints LLE-- 2plus DP pulse with brisk cap refill. INtact DF and PF of toes and ankle. intact sensation to light touch throughout. s/p LTKA mobilize as able Final Diagnosis no complaints Vital Signs Date Time Temp Pulse Resp B/P (MAP) Pulse Ox O2 Delivery O2 Flow Rate FiO2 01/21/20 04:08 37.6 111 20 150/74 (99) 90 Room Air 01/20/20 23:55 38.2 122 18 176/92 (120) 92 Room Air 01/20/20 22:04 37.2 01/20/20 22:04 37.2 01/20/20 21:00 17 01/20/20 21:00 Room Air 01/20/20 20:52 38.1 01/20/20 19:20 38.6 102 18 175/80 (111) 95 Room Air 01/20/20 15:50 37.9 85 19 180/85 (116) 96 Room Air 01/20/20 15:40 37.0 01/20/20 15:08 37.0 01/20/20 13:30 37.0 01/20/20 12:00 37.0 67 20 173/77 (109) 97 Room Air 01/20/20 09:35 37.0 01/20/20 09:02 Room Air 01/20/20 08:00 37.0 69 20 156/72 (100) 95 Room Air I & O 01/21/20 07:00 Intake Total 2800 ml Output Total 2950 ml Balance -150 ml Laboratory Tests Test 01/21/20 05:39 Range/Units Hemoglobin 12.7 L 13.3-17.7 G/DL Hematocrit 39 L 40-54 % LLE--incision clean and dry . No calf tenderness. neg Xiomara's s/p LTKA doing well DC after PT today HUSSAIN SOTELO MD Jan 21, 2020 07:02
[2020-01-21] MEDS ORDERED: morphine INJ 4 MG/ML 1 ML (VIAL/SYRINGE) IVP PRN (07:15)
[2020-01-21 07:52] VITALS: BP 145/74
[2020-01-21] MEDS: PANTOPRAZOLE 40 MG (PROTONIX) TAB PO SCH (09:03)
[2020-01-21] MEDS: LOSARTAN 50 MG (COZAAR) TAB PO SCH (09:03)
[2020-01-21] MEDS: LORATADINE (CLARITIN) 10 MG TAB PO SCH (09:03)
[2020-01-21] MEDS: SENNA W/DOCUSATE (SENOKOT S) TABLET PO SCH (09:03)
[2020-01-21] MEDS: ENOXAPARIN 30 MG/0.3 ML (LOVENOX) SYR SC SCH (09:03)
[2020-01-21] MEDS: ASPIRIN E.C. 81 MG (ECOTRIN) TAB PO SCH (09:03)
[2020-01-21] MEDS: BETAMETHASONE DIPRO (AUGMENTED) 0.05% CREAM 15 GM TOP SCH (09:04)
--- NOTE | 2020-01-21 09:21 | Physical Therapy Daily Note ---
PT Daily Note-Current Subjective Patient agrees to PT. No c/o. Pain Numeric Pain Scale: 5-Moderate Pain Location: Left Location Body Site: Knee Pain Description: Acute Mental Status Patient Orientation: Normal For Age Transfers SCALE: Activities may be completed with or without assistive devices. 6-Jkoxqvkvcq-dvfmbwd completes the activity by him/herself with no assistance from a helper. 5-Set-up or Clean-up Assistance-helper sets up or cleans up; patient completes activity. [place] assists only prior to or following the activity. 4-Supervision or Touching Assistance-helper provides verbal cues and/or touching/steadying and/or contact guard assistance as patient completes activity. Assistance may be provided throughout the activity or intermittently. 3-Partial/Moderate Assistance-helper does LESS THAN HALF the effort. [place] lifts, holds or supports trunk or limbs, but provides less than half the effort. 2-Substantial/Maximal Assistance-helper does MORE THAN HALF the effort. [place] lifts or holds trunk or limbs and provides more than half the effort. 0-Jnbmrgfym-bgrlyv does ALL the effort. Patient does none of the effort to complete the activity. Or, the assistance of 2 or more helpers is required for the patient to complete the activity. If activity was not attempted, code reason: 7-Patient Refused. 9-Not Applicable-not attempted and the patient did not perform the activity before the current illness, exacerbation or injury. 10-Not Attempted due to Environmental Limitations-(lack of equipment, weather restraints, etc.). 88-Not Attempted due to Medical Conditions or Safety Concerns. Roll Left & Right (QC): 6 Lying to Sitting/Side of Bed(Q: 6 Sit to Stand (QC): 6 Chair/Yta-nm-Fheba Xfer(QC): 6 Weight Bearing Left Lower Extremity: Left Weight Bearing/Tolerated Gait Training Does the Patient Walk?: Yes Distance: 250' x 2 Walk 10 feet (QC): 6 Walk 50 ft with 2 Turns(QC): 6 Walk 150 ft (QC): 6 Gait Assistive Device: FWW antalgic, reciprocal Stair Training Stair Training: Handrails/: 1 handrail, uses walker #of Steps: 5 1 Step (curb) (QC): 6 4 Steps (QC): 6 Stairs: Pattern: Step to Exercises Supine Ex: Ankle pumps, Quad Set, Heel Slides, Straight leg raise Supine Reps: 15 Seated Therapy Exercises: Long arc quads Seated Reps: 15 Assessment Patient has attained all functional goals and will dismiss to home with family and home health on this date. PT Short Term Goals Short Term Goals Time Frame: Jan 21, 2020 PT Manager Hi Goals Correction Goals PT Correction Goals Time Frame: Jan 26, 2020 Roll Left & Right (QC): 6 Sit to Lying (QC): 6 Lying-Sitting on Side/Bed(QC): 6 Sit to Stand (QC): 6 Chair/Csk-ei-Ishru Xfer(QC): 6 Walk 10 feet (QC): 6 Walk 50ft with 2 Turns (QC): 6 Walk 150 ft (QC): 6 PT Plan Treatment/Plan Treatment Plan: Discontinue PT, goals met Treatment Plan: Bed Mobility, Education, Functional Activity Kandice, Functional Strength, Gait, Safety, Therapeutic Exercise, Transfers Treatment Duration: Jan 26, 2020 Frequency: 11 times per week Estimated Hrs Per Day: .25 hour per day Patient and/or Family Agrees t: Yes Time/GCodes Time In: 838 Time Out: 850 Total Billed Treatment Time: 12 Total Billed Treatment 1 visit FA 12 min NAA JACKSON PT Jan 21, 2020 09:20
--- NOTE | 2020-01-21 10:27 | Occupational Ther Daily Note ---
OT Current Status-Daily Note Subjective Pt alert, finishing shower. Pt agrees to therapy. No c/o pain at this time. Pt to discharge to home today. Mental Status/Objective Patient Orientation: Person, Place, Time, Situation ADL-Treatment Educated pt on using AE for lower body dressing. Pt utilized dressing stick to don underwear and pants then stood to hike over hips by self. Pt demonstrated understanding of sock aide to don socks. After session, pt sitting in recliner with call light/phone in reach. All needs met in room. Therapy Code Descriptions/Definitions Functional [place] Measure: 0=Not Assessed/NA 4=Minimal Assistance 1=Total Assistance 5=Supervision or Setup 2=Maximal Assistance 6=Modified [place] 3=Moderate Assistance 7=Complete IndependenceSCALE: Activities may be completed with or without assistive devices. 0-Hkudwatiwn-aiucugv completes the activity by him/herself with no assistance from a helper. 5-Set-up or Clean-up Assistance-helper sets up or cleans up; patient completes activity. [place] assists only prior to or following the activity. 4-Supervision or Touching Assistance-helper provides verbal cues and/or touching/steadying and/or contact guard assistance as patient completes activity. Assistance may be provided throughout the activity or intermittently. 3-Partial/Moderate Assistance-helper does LESS THAN HALF the effort. [place] lifts, holds or supports trunk or limbs, but provides less than half the effort. 2-Substantial/Maximal Assistance-helper does MORE THAN HALF the effort. [place] lifts or holds trunk or limbs and provides more than half the effort. 1-Mkrpadaxm-kkekfg does ALL the effort. Patient does none of the effort to complete the activity. Or, the assistance of 2 or more helpers is required for the patient to complete the activity. If activity was not attempted, code reason: 7-Patient Refused. 9-Not Applicable-not attempted and the patient did not perform the activity before the current illness, exacerbation or injury. 10-Not Attempted due to Environmental Limitations-(lack of equipment, weather restraints, etc.). 88-Not Attempted due to Medical Conditions or Safety Concerns. Upper Body Dressing (QC): 5 Lower Body Dressing (QC): 5 On/Off Footwear: 5 OT Snf Goals Preschool Disability Teacher Goals Time Frame: Jan 22, 2020 Lower Body Dressing (QC): 4 (SBA with AE) On/Off Footwear (QC): 4 (SBA with AE) Additional Goals: 1-Demonstrate ADL Tasks, 2-Verbalize Understanding, 3- ImproveStrength/Kandice 1=Demonstrate adherence to instructed precautions during ADL tasks. 2=Patient will verbalize/demonstrate understanding of assistive devices/modifications for ADL. 3=Patient will improve strength/tolerance for activity to enable patient to perform ADL's. OT Education/Plan Discharge Recommendations Plan/Recommendations: Discharge/Goals Met Therapy Discharge Recommendati: Home & Family Treatment Plan/Plan of Care Patient would benefit from OT for education, treatment and training to promote independence in ADL's, mobility, safety and/or upper extremity function for ADL's. Plan of Care: ADL Retraining, Functional Mobility Treatment Duration: Jan 22, 2020 Frequency: 2 times per week Estimated Hrs Per Day: .25 hour per day Agreement: Yes Rehab Potential: Good Time/GCodes Start Time: 10:07 Stop Time: 02:20 Total Time Billed (hr/min): 15 Billed Treatment Time 1 visit-ADL 1 (15 min) JAMEE BRAVO Jan 21, 2020 10:27
[2020-01-21 11:00] VITALS: BP 145/74
--- NOTE | 2020-01-21 11:00 | NUR ---
WASTED CANE FLUME WATCHER MORPHINE 63ML WITH COMPRESS TRUCKER DNAIEL
== END 2020-01-21 11:00 | disposition home health service (06) | DRG 470 ==
LOC: 4TH 07:46 → SURG 07:47 → 4TH 11:48
PROVIDERS: ADMIT Orthopaedic Surgery; ATTEND Orthopaedic Surgery
PROC: 0SRD0J9 Replacement of Left Knee Joint with Synthetic Substitute, Cemented, Open Approach (ICD-10-PCS; principal; 2020-01-19 09:08)
DX: M17.12 Unilateral primary osteoarthritis, left knee (principal); I10 Essential (primary) hypertension; K21.9 Gastro-esophageal reflux disease without esophagitis; K59.09 Other constipation; E66.9 Obesity, unspecified; L40.9 Psoriasis, unspecified; G47.33 Obstructive sleep apnea (adult) (pediatric); M10.9 Gout, unspecified; G43.909 Migraine, unspecified, not intractable, without status migrainosus; M48.061 Spinal stenosis, lumbar region without neurogenic claudication; C44.91 Basal cell carcinoma of skin, unspecified; Z87.891 Personal history of nicotine dependence; Z98.1 Arthrodesis status; Z68.34 Body mass index [BMI] 34.0-34.9, adult
CPT/HCPCS: 36415; 73560; 85014; 85018; 86850; 86900; 86901; 94664; 94760

== ENCOUNTER 2021-02-05 12:07 | Outpatient (RCR) | payer MEDICARE, OTHER ==
[~2021-02-05] VITALS: Ht 165.1 cm; Wt 96.1 kg
[~2021-02-05 12:07] MED LIST changes: -ACETAMINOPHEN 325 MG TABLET PO PRN; -ONDANSETRON 4 MG/2 ML (SDV) Z0FRAN IVP PRN; -PANT40TA3 PO; +PANT40TA52 PO; -diphenhydrAMINE 50 MG/ML INJ (BENADRYL) IVP PRN; -morphine PCA 100 MG/100 ML BAG IV PRN
[2021-02-05 12:15] VITALS: BP 142/90
[2021-02-05] MEDS ORDERED: TRAM50TA3 PO (12:24)
[2021-02-05] MEDS ORDERED: APRE30TA2 PO (12:24)
[2021-02-05] MEDS ORDERED: LOSA100T57 PO (12:24)
[2021-02-05] MEDS ORDERED: KETO15CR2 TP (12:24)
[2021-02-05] MEDS ORDERED: ASPI-999 PO (12:24)
[2021-02-05 12:51] LABS: BASOPHILS # (AUTO) 0.1 10^3/uL (0.0-0.1); BASOPHILS % (AUTO) 1 % (0-10); EOSINOPHILS # (AUTO) 0.4 10^3/uL (0.0-0.3); EOSINOPHILS % (AUTO) 4 % (0-10); HEMATOCRIT 46 % (40-54); HEMOGLOBIN 15.4 g/dL (13.3-17.7); LYMPHOCYTES # (AUTO) 1.7 10^3/uL (1.0-4.0); LYMPHOCYTES % (AUTO) 19 % (12-44); MEAN CORPUSCULAR HEMOGLOBIN 29 pg (25-34); MEAN CORPUSCULAR HGB CONC 34 g/dL (32-36); MEAN CORPUSCULAR VOLUME 88 fL (80-99); MEAN PLATELET VOLUME 9.1 fL (9.0-12.2); MONOCYTES # (AUTO) 0.9 10^3/uL (0.0-1.0); MONOCYTES % (AUTO) 10 % (0-12); NEUTROPHILS # (AUTO) 5.7 10^3/uL (1.8-7.8); NEUTROPHILS % (AUTO) 64 % (42-75); PLATELET COUNT 289 10^3/uL (130-400); WHITE BLOOD COUNT 8.8 10^3/uL (4.3-11.0)
[2021-02-05 13:08] LABS: BILIRUBIN,URINE NEGATIVE (NEGATIVE); CLARITY,URINE CLEAR; COLOR,URINE YELLOW; GLUCOSE, URINE (UA) NEGATIVE (NEGATIVE); KETONES,URINE NEGATIVE (NEGATIVE); LEUKOCYTE ESTERASE ,URINE NEGATIVE (NEGATIVE); NITRITE,URINE NEGATIVE (NEGATIVE); PH,URINE 5.5 (5-9); PROTEIN,URINE NEGATIVE (NEGATIVE)
[2021-02-05 13:14] LABS: ERYTHROCYTE SEDIMENTATION RATE 19 MM/HR (0-30)
[2021-02-05 13:16] LABS: ALBUMIN 3.5 GM/DL (3.2-4.5); BILIRUBIN,TOTAL 0.4 MG/DL (0.1-1.0); CALCIUM 8.9 MG/DL (8.5-10.1); CREATININE SERUM 1.47 MG/DL (0.60-1.30); POTASSIUM 4.1 MMOL/L (3.6-5.0); TOTAL PROTEIN 7.8 GM/DL (6.4-8.2)
[2021-02-05 13:19] LABS: PROTHROMBIN TIME PATIENT 13.5 SEC (12.2-14.7)
--- NOTE | 2021-02-05 13:19 | Diagnostic Imaging Report ---
INDICATION: Preop for right total knee replacement. 2 views of the chest show normal heart size and vascularity. There are several calcified lung lesions present with no suspicious mass or infiltrate seen. There is no effusion or pneumothorax. There is no acute bony abnormality. IMPRESSION: No acute abnormality is seen with no change from 01/11/2020. Dictated by: Dictated on workstation # [id number]
[2021-02-05 13:23] LABS: BACTERIA,URINE NEGATIVE /HPF; SQUAMOUS EPITHELIAL CELL,UR RARE /HPF
== END 2021-02-12 13:53 | disposition home or self-care (01) ==
LOC: PREOP 12:07
PROVIDERS: ATTEND Orthopaedic Surgery
DX: Z01.818 Encounter for other preprocedural examination (principal); M17.11 Unilateral primary osteoarthritis, right knee; R53.83 Other fatigue
CPT/HCPCS: 36415; 71046; 80053; 81000; 85025; 85610; 85652; 86850; 86900; 86901; 87081; 93005

== ENCOUNTER → 2021-02-12 | Outpatient (CLI) | payer MEDICARE, OTHER ==
[~2021-02-12] MED LIST changes: +APRE30TA2 PO; +ASPI-1238 PO; +ASPI-999 PO; +CETI10TA17 PO; +KETO15CR2 TP; +LOSA100T57 PO; +MELA10TA2 PO; +TRAM50TA3 PO; +TRAZ150T72 PO
== END ==
LOC: LABNPT 08:00
PROVIDERS: ATTEND Orthopaedic Surgery
DX: Z20.822 Contact with and (suspected) exposure to COVID-19 (principal)
CPT/HCPCS: 87635

== ENCOUNTER 2021-02-14 06:06 | Inpatient (IN) | payer MEDICARE, OTHER ==
[2021-02-14] VITALS (12 sets, daily range): BP systolic 135–183; BP diastolic 67–87
[~2021-02-14] VITALS: Ht 165.1 cm; Wt 96.8 kg
[~2021-02-14 06:06] MED LIST changes: -ASPI-1238 PO; -CETI10TA17 PO; -MELA10TA2 PO; -TRAZ150T72 PO
[2021-02-14] MEDS ORDERED: CEFUROXIME INJECTION 1,500 MG in WATER (STERILE) FOR INJECTION 15 ML IV ONE (06:15)
[2021-02-14] MEDS: LACTATED RINGERS 1,000 ML IV PRN ×2 (06:31→08:45)
[2021-02-14] MEDS ORDERED: SEVOFLURANE (ULTANE) 15 ML INHAL SOLN ONE ×2 (06:42→07:49)
[2021-02-14] MEDS ORDERED: ONDANSETRON 4 MG/2 ML (SDV) Z0FRAN ONE (06:42)
[2021-02-14] MEDS ORDERED: proPOfol 200 MG/20 ML (DIPRIVAN) VIAL IV ONE (06:42)
[2021-02-14] MEDS ORDERED: MIDAZOLAM 2 MG/2 ML (VERSED) VIAL ONE (06:42)
[2021-02-14] MEDS ORDERED: LIDOCAINE PF 2% 5 ML (XYLOCAINE) VIAL ONE ×2 (06:42→07:11)
[2021-02-14] MEDS ORDERED: fentaNYL INJ 100 MCG/2 ML AMP ONE (06:42)
[2021-02-14] MEDS ORDERED: MELA10TA2 PO (06:47)
[2021-02-14] MEDS ORDERED: ONDANSETRON 4 MG/2 ML (SDV) Z0FRAN IVP PRN ×2 (07:15→09:30)
[2021-02-14] MEDS ORDERED: NALOXONE 0.4 MG/ML 1 ML (NARCAN) VIAL IV PRN (07:15)
[2021-02-14] MEDS ORDERED: morphine PCA 100 MG/100 ML BAG IV PRN (07:15)
[2021-02-14] MEDS ORDERED: diphenhydrAMINE 50 MG/ML INJ (BENADRYL) IVP PRN (07:15)
--- NOTE | 2021-02-14 07:29 | Progress Note-Pre Operative ---
Pre-Operative Progress Note H&P Reviewed The H&P was reviewed, patient examined and no changes noted. Date Seen by Provider: Feb 14, 2021 Time Seen by Provider: 07:20 Date H&P Reviewed: Feb 14, 2021 Time H&P Reviewed: 07:11 Pre-Operative Diagnosis: right knee primary osteoarthritis HUSSAIN SOTELO MD Feb 14, 2021 07:29
--- NOTE | 2021-02-14 07:30 | Progress Note-Post Operative ---
Post-Operative Progess Note Surgeon (s)/Ict Help Desk Officer (s) Surgeon HUSSAIN SOTELO MD Ict Help Desk Officer: Bryan Rasheed Pre-Operative Diagnosis right knee primary osteoarthritis Post-Operative Diagnosis right knee primary osteoarthritis Procedure & Operative Findings Date of Procedure 02/14/21 Procedure Performed/Findings right total knee arthroplasty Anesthesia Type GETA Estimated Blood Loss Estimated blood loss (mL): minimal Specimens/Packing Specimens Removed none Packing: none HUSSAIN SOTELO MD Feb 14, 2021 07:30
[2021-02-14] MEDS ORDERED: TRANEXAMIC ACID 100 MG/ML 10 ML INJECTION ONE (07:31)
--- NOTE | 2021-02-14 07:32 | D/C HH Face to Face Order ---
D/C Face to Face Orders Reconcile Patient Problems Problems Reviewed?: Yes Instructions for Patient Via [facility], Patient Instructions/FollowUp: three weeks Physician to follow Patient: three weeks Discharge Diet for Home: Regular Diet Patient Data-Allergies,Ht & Wt Patient Allergies: Coded Allergies: No Known Drug Allergies (Unverified , 01/11/20) Height (Feet): 5 Height (Inches): 6.00 Weight (Pounds): 220 Home Health Need/Face to Face Date of Face to Face: Feb 14, 2021 Clinical Findings: Instability, Muscle weakness, Pain with ambulation, Unsteady gait I have seen Pt ezyb-cp-uywn: Yes Discharged To: Home Diagnosis/Conditions: right total knee arthroplasty Patient is Homebound due to: Pattie fall risk due to instabilty, Muscle weakness, Pain w/ambulation Homebound Status Due to the above stated illness, injury or surgical procedure (medical condition or diagnosis) and associated clinical findings, the patient is homebound because of his/her inability to leave home except with aid of a supportive device and/or person AND leaving the home requires a considerable and taxing effort or is medically contraindicated. Pt req the following assistanc: Walker Home Health Nursing Orders Home Health Services Order: Physical Therapy-Evaluate & Treat DC right knee juju and apply steri strips 02/28/21 Therapy Orders Therapy Orders: Physical Therapy, PT to assess for OT Therapy Specific Orders: Eval assistive deivces, Teach enviro modifications/safety, Gait training, Increase strength/endurance, Provider maintenance therapy Certify Stmt I certify that this patient is under my care and that I, a nurse practitioner or a physician; a assistant professor of physics working with me, had a face to face encounter that -meets the physician face to face encounter requirements with this patient as dated. HUSSAIN SOTELO MD Feb 14, 2021 07:32
[2021-02-14] MEDS ORDERED: ROPIVACAINE 5MG/ML 30ML VIAL ONE (07:48)
[2021-02-14] MEDS ORDERED: NS (IVPB) 33 ML, ROPIVACAINE INJECTION 275 MG, EPINEPHrine 1 MG INJECTION 0.5 MG, morp... IU ONE ×4 (08:00)
[2021-02-14] MEDS ORDERED: HYDROmorphone 2 MG/ML VIAL (DILAUDID) ONE ×2 (08:07→09:29)
[2021-02-14] MEDS ORDERED: HYDROmorphone 2 MG/ML VIAL (DILAUDID) IV ONE (09:30)
--- NOTE | 2021-02-14 10:07 | Diagnostic Imaging Report ---
INDICATION: Right knee replacement. TIME OF EXAM: 9:25 AM. FINDINGS: Two views of the right knee demonstrate postop changes of total knee arthroplasty. The prosthetic elements are in good position. No fracture or loosening is seen. Overlying skin juju are noted. IMPRESSION: Satisfactory postop appearance to the right knee. Dictated by: Dictated on workstation # [id number]
--- NOTE | 2021-02-14 10:45 | Physical Therapy Evaluation ---
PT Evaluation-General Medical Diagnosis Admission Date Feb 14, 2021 at 06:06 Medical Diagnosis: right TKR Onset Date: Feb 14, 2021 Therapy Diagnosis Therapy Diagnosis: debility/weakness Height/Weight Height (Feet): 5 Height (Inches): 6.00 Weight (Pounds): 220 Precautions Precautions/Isolations: Standard Precautions Weight Bear Status Right Lower Extremity: Right Weight Bearing/Tolerated Left Lower Extremity: Left Full Weight Bearing Referral Physician: Loyd Reason for Referral: Evaluation/Treatment Medical History Pertinent Medical History: Arthritis, GERD Additional Medical History left TKR ~1 yr prior Current History s/p elective right TKR Reviewed History: Yes Social History Home: Single Level Current Living Status: Spouse Entry Into Home: Stairs With Railing PT Steps Into Home: 4 Prior Prior Level of Function SCALE: Activities may be completed with or without assistive devices. 2-Sbaljqeweg-gfblmih completes the activity by him/herself with no assistance from a helper. 5-Set-up or Clean-up Assistance-helper sets up or cleans up; patient completes activity. [place] assists only prior to or following the activity. 4-Supervision or Touching Assistance-helper provides verbal cues and/or touching/steadying and/or contact guard assistance as patient completes activity. Assistance may be provided throughout the activity or intermittently. 3-Partial/Moderate Assistance-helper does LESS THAN HALF the effort. [place] lifts, holds or supports trunk or limbs, but provides less than half the effort. 2-Substantial/Maximal Assistance-helper does MORE THAN HALF the effort. [place] lifts or holds trunk or limbs and provides more than half the effort. 7-Jjynwalqy-ydlgbw does ALL the effort. Patient does none of the effort to complete the activity. Or, the assistance of 2 or more helpers is required for the patient to complete the activity. If activity was not attempted, code reason: 7-Patient Refused. 9-Not Applicable-not attempted and the patient did not perform the activity before the current illness, exacerbation or injury. 10-Not Attempted due to Environmental Limitations-(lack of equipment, weather restraints, etc.). 88-Not Attempted due to Medical Conditions or Safety Concerns. Bed Mobility: 6 Transfers (B,C,W/C): 6 Gait: 6 Stairs: 6 Indoor Mobility (Ambulation): Independent Stairs: Independent Prior Devices Use: None PT Evaluation-Current Subjective Patient agrees to PT. Pain Numeric Pain Scale: 5-Moderate Pain Location: Right Location Body Site: Knee Pain Description: Acute Objective Patient Orientation: Normal For Age Attachments: SCD's, Polar Pack, IV ROM/Strength ROM Lower Extremities CPM 0-50 degrees right LE/left LE WFL Strength Lower Extremities right LE NT/left LE 4/5 grossly all planes Integumentary/Posture Integumentary refer to nursing notes Bowel Incontinence: No Bladder Incontinence: No Posture WFL Neuromuscular (Tone, Coordination, Reflexes) grossly intact Sensory Vision: Functional Hearing: Functional Transfers Roll Left to Right (QC): 5 Sit to Lying (QC): 4 Lying to Sitting/Side of Bed(Q: 4 Sit to Stand (QC): 88 Chair/Zpn-rv-Ohkhv Xfer(QC): 88 sat EOB Gait Does the Patient Walk?: No and Walking Goal IS indicated Mode of Locomotion: Walk Anticipated Mode of Locomotion: Walk Walk 10 feet (QC): 88 Walk 50 ft with 2 Turns(QC): 88 Walk 150 ft (QC): 88 Gait Assistive Device: FWW Balance Sitting Static: Normal Sitting Dynamic: Normal Treatment CPM 0-50 degrees right LE/polar pack Assessment/Needs 65 y.o. male, will benefit from skilled PT to address functional strength and mobility. S/p elective right TKR Rehab Potential: Fair PT Human Resources File Clerk Goals [facility] Goals PT [facility] Goals Time Frame: Feb 21, 2021 Roll Left & Right (QC): 6 Sit to Lying (QC): 6 Lying-Sitting on Side/Bed(QC): 6 Sit to Stand (QC): 6 Chair/Uzz-lf-Uwrfw Xfer(QC): 6 Toilet Transfer (QC): 6 Does the Patient Walk: Yes Walk 10 feet (QC): 6 Walk 50ft with 2 Turns (QC): 6 Walk 150 ft (QC): 6 1 Step (curb) (QC): 6 4 Steps (QC): 6 PT Plan Treatment/Plan Treatment Plan: Continue Plan of Care Treatment Plan: Bed Mobility, Education, Functional Activity Kandice, Functional Strength, Gait, Safety, Therapeutic Exercise, Transfers Treatment Duration: Feb 21, 2021 Frequency: 11 times per week Estimated Hrs Per Day: .5 hour per day Patient and/or Family Agrees t: Yes Discharge Recommendations Therapy Discharge Recommendati: Home & Family, Post Acute PT Time/GCodes Time In: 1016 Time Out: 1030 Total Billed Treatment Time: 14 Total Billed Treatment 1 visit EVModC 14 min CPM/PADS NAA JACKSON PT Feb 14, 2021 10:45
--- NOTE | 2021-02-14 10:51 | Progress Note ---
Standard Progress Note Progress Notes/Assess & Plan Date Seen by a Provider: Feb 14, 2021 Time Seen by a Provider: 09:15 Progress/Assessment & Plan post op check no complaints radiographs--HW well postioned without fracture RLE--2 plus DP pulse. Intact sensation to light touch throughout. Intact DF and PF of toes and ankle s/p R TKA mobilize as able HUSSAIN SOTELO MD Feb 14, 2021 10:51
[2021-02-14] MEDS: NS IV 1000 ML 1,000 ML IV SCH ×2 (10:58→22:20)
[2021-02-14] MEDS: SENNA W/DOCUSATE (SENOKOT S) TABLET PO SCH ×2 (11:04→19:31)
[2021-02-14] MEDS ORDERED: CETI10TA17 PO (12:24)
[2021-02-14] MEDS ORDERED: TRAZ150T72 PO (12:24)
[2021-02-14] MEDS ORDERED: ASPI-1238 PO (12:24)
--- NOTE | 2021-02-14 13:39 | OPERATIVE REPORT ---
DATE OF SERVICE: PREOPERATIVE DIAGNOSIS: Right knee primary osteoarthritis. POSTOPERATIVE DIAGNOSIS: Right knee primary osteoarthritis. PROCEDURE: Right total knee arthroplasty. SURGEON: Cresencio Sotelo MD COAL PULVERIZING OPERATOR: Bryan Rasheed, who assisted throughout the procedure and closed the incision. ANESTHESIA: General endotracheal by Eric Quijano CRNA. TOURNIQUET TIME: Approximately 65 minutes at 300 mmHg. ESTIMATED BLOOD LOSS: Minimal. DRAINS: None. COMPLICATIONS: None. POSTOPERATIVE PLAN: Routine protocol. The patient was transferred to the recovery room awake and in stable condition. MATERIALS: [place]port cemented size 4 femur, cemented size 4 tibia with a 12 mm insert and cemented size 32 patellar button. STATEMENT OF MEDICAL NECESSITY: The patient is a 65-year-old gentleman with longstanding right knee pain. He had undergone treatment with injections, anti-inflammatories and rest. Radiographs revealed severe medial and patellofemoral arthrosis. Due to functional impairment and failure to improve with conservative measures, the patient elected to proceed with surgical intervention. DESCRIPTION OF PROCEDURE: After risks and benefits of procedure were discussed and questions were answered, an informed consent was signed and placed on chart, the operative site was confirmed in the preoperative holding area initialed by the surgeon. The patient was then transferred to the operating room after adequate levels of general endotracheal anesthetic were obtained, a timeout was called, confirming the operative site. The right lower extremity was prepped and draped in the usual sterile fashion with the leg elevated and the knee flexed, tourniquet inflated to 300 mmHg. Standard anterior approach was utilized. Hemostasis was obtained with cautery. Medial parapatellar arthrotomy was performed leaving 1 cm cuff on the patella for later reattachment. A portion of the fat pad was resected. A subperiosteal release was carefully performed on the proximal medial tibia being careful to stay on the bony surface. The ACL was resected. The intramedullary guide was passed into the femur. The distal cutting block was placed. Distal cut was made, the femur sized to a size 4. The 4 cutting block was placed parallel to the epicondylar axis and cuts were made from posterior to anterior. Subperiosteal release was then carefully performed on the posterior distal femur, being careful to stay on the bony surface. Intramedullary guide was then passed into the tibia. The cutting block was placed. The drop deonna transected the intermalleolar axis and the cut was made. The four baseplate was placed. Again, the drop deonna transected the intermalleolar axis and this was prepared with the drill and keel punch, the femoral trial was placed and trochlear cut was made. A 12 mm insert was placed. The patella was then prepared using the freehand technique by resecting 10 mm off the undersurface. The peg guide was placed and peg holes were drilled. The trials were inserted. Full extension was easily obtained under 20 degrees of flexion with gravity was easily obtained. There was no anterior/posterior or medial/lateral laxity in flexion or extension. The trials were removed. The joint was irrigated with pulse lavage. The bone ends were irrigated and dried after placing the periarticular block throughout the posterior capsule, medial and lateral retinaculum extensor mechanism, subcutaneous tissues. The bone ends were further irrigated. The tibial baseplate was cemented into position. Excessive cement was removed. Superior surface was irrigated and dried. The polyethylene insert was placed. Distal femur was irrigated and dried and the femoral prosthesis was cemented into position. Excessive cement was removed. The knee was brought out into full extension until cement had cured. The undersurface of the patella was irrigated and dried and the patellar button was cemented into position. Excessive cement was removed. Once the cement had cured, the knee was taken through range of motion. Full extension was easily obtained under 20 degrees of flexion with gravity was easily obtained. There was no anterior/posterior or medial/lateral laxity in flexion or extension. The joint was further irrigated with pulse lavage. Arthrotomy was closed with #2 Tevdek in skhrgk-tm-wewct interrupted fashion. The knee was flexed. Patella tracked well with no undue tension noted at the repair site. The subcutaneous tissues were irrigated using a total of 6 liters throughout the procedure. A 0 Vicryl was used for deep subcutaneous tissue, 2-0 Vicryl for the superficial subcutaneous tissue, [place] used on the skin. A soft dressing was applied. The tourniquet was deflated. The patient was transferred to the recovery room awake and in stable condition. Job ID: [id number] DocumentID: [id number] Dictated Date: 02/14/2021 09:17:57 Clinical Nursing Director Date: 02/14/2021 13:38:32 Dictated By: CRESENCIO SOTELO MD
--- NOTE | 2021-02-14 13:39 | Physical Therapy Daily Note ---
PT Daily Note-Current Subjective Patient agrees to PT. Pain Numeric Pain Scale: 5-Moderate Pain Location: Right Location Body Site: Knee Pain Description: Acute Mental Status Patient Orientation: Normal For Age Attachments: IV Transfers SCALE: Activities may be completed with or without assistive devices. 7-Mjnaxhceep-itdvjuv completes the activity by him/herself with no assistance from a helper. 5-Set-up or Clean-up Assistance-helper sets up or cleans up; patient completes activity. [place] assists only prior to or following the activity. 4-Supervision or Touching Assistance-helper provides verbal cues and/or touching/steadying and/or contact guard assistance as patient completes activity. Assistance may be provided throughout the activity or intermittently. 3-Partial/Moderate Assistance-helper does LESS THAN HALF the effort. [place] lifts, holds or supports trunk or limbs, but provides less than half the effort. 2-Substantial/Maximal Assistance-helper does MORE THAN HALF the effort. [place] lifts or holds trunk or limbs and provides more than half the effort. 3-Jrelkkaei-fqfyhe does ALL the effort. Patient does none of the effort to complete the activity. Or, the assistance of 2 or more helpers is required for the patient to complete the activity. If activity was not attempted, code reason: 7-Patient Refused. 9-Not Applicable-not attempted and the patient did not perform the activity before the current illness, exacerbation or injury. 10-Not Attempted due to Environmental Limitations-(lack of equipment, weather restraints, etc.). 88-Not Attempted due to Medical Conditions or Safety Concerns. Sit to Lying (QC): 6 Lying to Sitting/Side of Bed(Q: 6 Sit to Stand (QC): 4 Weight Bearing Right Lower Extremity: Right Weight Bearing/Tolerated Left Lower Extremity: Left Full Weight Bearing Gait Training Distance: 5 side steps Gait Assistive Device: FWW Exercises Supine Ex: Ankle pumps, Quad Set, Heel Slides, Straight leg raise Supine Reps: 12 Seated Therapy Exercises: Ankle pumps, Long arc quads Seated Reps: 12 Assessment Patient tolerated treatment well. Increase activity and right knee ROM. PT Nursing Home Goals Circulation Clerk Goals PT Nursing Home Goals Time Frame: Feb 21, 2021 Roll Left & Right (QC): 6 Sit to Lying (QC): 6 Lying-Sitting on Side/Bed(QC): 6 Sit to Stand (QC): 6 Chair/Cvp-np-Bbjqq Xfer(QC): 6 Toilet Transfer (QC): 6 Does the Patient Walk: Yes Walk 10 feet (QC): 6 Walk 50ft with 2 Turns (QC): 6 Walk 150 ft (QC): 6 1 Step (curb) (QC): 6 4 Steps (QC): 6 PT Plan Treatment/Plan Treatment Plan: Continue Plan of Care Treatment Plan: Bed Mobility, Education, Functional Activity Kandice, Functional Strength, Gait, Safety, Therapeutic Exercise, Transfers Treatment Duration: Feb 21, 2021 Frequency: 11 times per week Estimated Hrs Per Day: .5 hour per day Patient and/or Family Agrees t: Yes Time/GCodes Time In: 1312 Time Out: 1327 Total Billed Treatment Time: 15 Total Billed Treatment 1 visit EX 15 min NAA JACKSON PT Feb 14, 2021 13:39
[2021-02-14] MEDS: CEFUROXIME INJECTION 750 MG in WATER (STERILE) FOR INJECTION 10 ML IV SCH ×2 (15:04→22:20)
[2021-02-14] MEDS: oxyCODONE/APAP 5/325MG (PERCOCET 5) TABLET PO PRN ×3 (15:08→21:05)
--- NOTE | 2021-02-14 15:10 | Consultation - Hospitalist ---
HPI History of Present Illness: HPI/Chief Complaint Pt is a 65yoCM with a PMH HTN and osteoarthritis who was admitted for TKA. I am consulted for medical management. He underwent surgery today and reports doing w ell. pain is controlled. He has already been up with PT to the edge of bed and tolerated that well. He has no complaints. Source: patient Date Seen 02/14/21 Attending Physician Cresencio Harp MD PCP Alex Grewal DO Referring Physician Date of Admission Feb 14, 2021 at 06:06 Home Medications & Allergies Home Medications Reviewed patient Home Medication Reconciliation performed by pharmacy medication reconciliations water and fire technician and/or nursing. Patients Allergies have been reviewed. Allergies Allergies Coded Allergies No Known Drug Allergies (Unverified02/14/21) Past Bhlripe-Jwjszg-Exmfed Hx Patient Social History Marrital Status: Employed/Student: retired Tobacco Use?: No Smoking Status: Never a Smoker Use of E-Cig and/or Vaping dev: No Substance use?: No Alcohol Use?: No Pt feels they are or have been: No Immunizations Up To Date Date of Influenza Vaccine: Apr 12, 2020 First/Initial COVID19 Vaccinat: NOVEMBER 2020 Second COVID19 Vaccination Kal: DECEMBER 2020 Tetanus Booster (TDap): Unknown Hepatitis A: No Hepatitis B: No Date of Pneumonia Vaccine: Apr 13, 2018 Seasonal Allergies Seasonal Allergies: Yes Current Status Communicates: Verbally Primary Language: Faroese Preferred Spoken Language: Faroese Is interpretation needed?: No Past Medical History Surgeries: Adenoidectomy, Orthopedic, Tonsillectomy Sleep Apnea Currently Using CPAP: No Currently Using BIPAP: No Hypertension Headaches /Migraines Sexually Transmitted Disease: No HIV/AIDS: No Gastroesophageal Reflux, Chronic Constipation Degenerate Disk Disease, Arthritis Loss of Vision: Denies Hearing Impairment: Denies Skin Did You Recieve Any Treatments: Yes What Type of Treatment Did You: Surgical Intervention Eczema Blood Disorders: No Adverse Reaction/Blood Tranf: No (N/A) Family Medical History Reviewed Nursing Family Hx No Pertinent Family Hx Review of Systems Constitutional: No chills, No fever EENTM: no symptoms reported Respiratory: no symptoms reported Cardiovascular: no symptoms reported Gastrointestinal: no symptoms reported Musculoskeletal: joint pain Skin: no symptoms reported Psychiatric/Neurological: No Symptoms Reported Physical Exam Physical Exam Vital Signs Vital Signs - First Documented 02/14/21 06:15 Temp 36.9 Pulse 89 Resp 16 B/P (MAP) 179/87 (117) Pulse Ox 96 O2 Delivery Room Air Capillary Refill : Less Than 3 Seconds Height, Weight, BMI Height: 5'6.00" Weight: 220lbs. oz. 99.670335hf; 35.51 BMI Method:Stated General Appearance: No Apparent Distress, WD/WN, Obese HEENT: PERRL/EOMI, Moist Mucous Membranes; No Scleral Icterus (L), No Scleral Icterus (R) Neck: Normal Inspection, Supple Respiratory: Lungs Clear, No Accessory Muscle Use, No Respiratory Distress Cardiovascular: Regular Rate, Rhythm, No JVD, No Murmur Gastrointestinal: Normal Bowel Sounds, Non Tender, Soft Extremity: Normal Capillary Refill, No Calf Tenderness, No Pedal Edema, Other (compression stockings in place) Neurologic/Psychiatric: Alert, Oriented x3, Normal Mood/Affect Results Results/Procedures Labs Patient resulted labs reviewed. Assessment/Plan Assessment and Plan Assess & Plan/Chief Complaint Right knee osteoarthritis s/p TKA PT/OT Pain regimen Bowel regimen Lovenox Management per primary HTN BP up today but did not take his med preop Will resume Psoraisis Continue home meds DVT ppx: Lovenox Diagnosis/Problems Diagnosis/Problems (1) Essential (primary) hypertension (2) Psoriasis (3) Osteoarthritis of right knee RENATE PAULA MD Feb 14, 2021 15:10
[2021-02-14] MEDS ORDERED: NON-FORMULARY MEDICATION 1 EA EA (Clobetasol Propionate 1 APPLIC) TP PRN (15:15)
[2021-02-14] MEDS: ETODOLAC 300 MG (LODINE) CAP PO SCH (19:31)
[2021-02-14] MEDS: OTEZLA 30 MG TABLET PO SCH (19:32)
[2021-02-14] MEDS: KETOCONAZOLE 2% CREAM 15 GM (NIZORAL) TP SCH (19:33)
[2021-02-14] MEDS: MELATONIN 10 MG TABLET PO SCH (21:05)
[2021-02-14] MEDS: traZODone 150 MG (DESYREL) TABLET PO SCH (21:05)
[2021-02-14] MEDS ORDERED: CEFUROXIME 750 MG/7.5 ML (ZINACEF) VIAL ONE (22:17)
[2021-02-15 04:17] VITALS: BP 142/80
[2021-02-15] MEDS: oxyCODONE/APAP 5/325MG (PERCOCET 5) TABLET PO PRN ×6 (05:03→21:19)
[2021-02-15] MEDS: MULTIVIT W/MINERALS TAB (THERAGRAN M) PO SCH (05:03)
[2021-02-15 06:44] LABS: HEMOGLOBIN 12.8 g/dL (13.3-17.7)
[2021-02-15] MEDS: ASPIRIN E.C. 81 MG (ECOTRIN) TAB PO SCH ×2 (07:18→08:54)
[2021-02-15 07:32] VITALS: BP 140/75
--- NOTE | 2021-02-15 07:59 | Progress Note ---
Standard Progress Note Progress Notes/Assess & Plan Date Seen by a Provider: Feb 15, 2021 Time Seen by a Provider: 07:58 Progress/Assessment & Plan post op check no complaints radiographs--HW well postioned without fracture RLE--2 plus DP pulse. Intact sensation to light touch throughout. Intact DF and PF of toes and ankle s/p R TKA mobilize as able Final Diagnosis no complaints Vital Signs Date Time Temp Pulse Resp B/P (MAP) Pulse Ox O2 Delivery O2 Flow Rate FiO2 02/15/21 07:32 73 20 140/75 (96) 97 Room Air 02/15/21 05:04 20 02/15/21 04:17 37.2 89 20 142/80 (100) 95 Room Air 02/14/21 23:51 37.2 96 20 140/67 (91) 94 Room Air 02/14/21 21:06 18 02/14/21 20:00 38.2 116 18 157/79 (105) 92 Room Air 02/14/21 19:45 Room Air 02/14/21 15:40 37.3 116 20 135/78 (97) 94 Room Air 02/14/21 11:26 36.0 88 18 165/83 (110) 96 Room Air 02/14/21 10:52 36.3 97 20 183/73 (109) 91 Room Air 02/14/21 10:45 98 Room Air 02/14/21 10:00 36.6 13 164/77 (106) 98 Room Air 02/14/21 10:00 Room Air 02/14/21 09:50 26 163/83 (109) 99 OxyMask 1 02/14/21 09:50 OxyMask 3 02/14/21 09:40 15 151/68 (95) 100 OxyMask 3 02/14/21 09:40 OxyMask 3 02/14/21 09:30 12 167/83 (111) 100 OxyMask 10 02/14/21 09:25 OxyMask 10 02/14/21 09:20 12 163/84 (110) 100 OxyMask 10 02/14/21 09:10 36.6 16 141/75 (97) 100 OxyMask 10 02/14/21 09:10 OxyMask 10 I & O 02/15/21 07:00 Intake Total 3345 ml Output Total 2650 ml Balance 695 ml Laboratory Tests Test 02/15/21 05:45 Range/Units Hemoglobin 12.8 L 13.3-17.7 g/dL Hematocrit 40 40-54 % RLE--dressing intact. No calf tenderness. Neg Xiomara's NVI s/p RTKA PT/OT HUSSAIN SOTELO MD Feb 15, 2021 07:59
[2021-02-15] MEDS: OTEZLA 30 MG TABLET PO SCH ×2 (08:53→21:20)
[2021-02-15] MEDS: NS IV 1000 ML 1,000 ML IV SCH (08:53)
[2021-02-15] MEDS: PANTOPRAZOLE 40 MG (PROTONIX) TAB PO SCH (08:54)
[2021-02-15] MEDS: LORATADINE (CLARITIN) 10 MG TAB PO SCH (08:54)
[2021-02-15] MEDS: LOSARTAN 100 MG (COZAAR) TABLET PO SCH (08:54)
[2021-02-15] MEDS: ETODOLAC 300 MG (LODINE) CAP PO SCH ×2 (08:54→21:19)
[2021-02-15] MEDS: SENNA W/DOCUSATE (SENOKOT S) TABLET PO SCH ×2 (08:54→21:19)
[2021-02-15] MEDS: ENOXAPARIN 30 MG/0.3 ML (LOVENOX) SYR SC SCH ×2 (08:54→20:06)
[2021-02-15] MEDS: KETOCONAZOLE 2% CREAM 15 GM (NIZORAL) TP SCH ×2 (08:58→21:21)
--- NOTE | 2021-02-15 09:50 | Physical Therapy Daily Note ---
PT Daily Note-Current Subjective Patient agrees to PT. Rated right knee pain 8/10 with CASING COOKER and pain meds issued. Pain Numeric Pain Scale: 8 Location: Right Location Body Site: Knee Pain Description: Acute Mental Status Patient Orientation: Normal For Age Attachments: Polar Pack, IV Transfers SCALE: Activities may be completed with or without assistive devices. 9-Cjqficnwzu-bohymhh completes the activity by him/herself with no assistance from a helper. 5-Set-up or Clean-up Assistance-helper sets up or cleans up; patient completes activity. [place] assists only prior to or following the activity. 4-Supervision or Touching Assistance-helper provides verbal cues and/or touching/steadying and/or contact guard assistance as patient completes activity. Assistance may be provided throughout the activity or intermittently. 3-Partial/Moderate Assistance-helper does LESS THAN HALF the effort. [place] lifts, holds or supports trunk or limbs, but provides less than half the effort. 2-Substantial/Maximal Assistance-helper does MORE THAN HALF the effort. [place] lifts or holds trunk or limbs and provides more than half the effort. 2-Mbwurddxy-ooshva does ALL the effort. Patient does none of the effort to complete the activity. Or, the assistance of 2 or more helpers is required for the patient to complete the activity. If activity was not attempted, code reason: 7-Patient Refused. 9-Not Applicable-not attempted and the patient did not perform the activity before the current illness, exacerbation or injury. 10-Not Attempted due to Environmental Limitations-(lack of equipment, weather restraints, etc.). 88-Not Attempted due to Medical Conditions or Safety Concerns. Lying to Sitting/Side of Bed(Q: 6 Sit to Stand (QC): 4 Chair/Mwj-dp-Wqskx Xfer(QC): 4 Weight Bearing Right Lower Extremity: Right Weight Bearing/Tolerated Left Lower Extremity: Left Full Weight Bearing Gait Training Does the Patient Walk?: Yes Distance: 150' Walk 10 feet (QC): 4 Walk 50 ft with 2 Turns(QC): 4 Walk 150 ft (QC): 4 Gait Assistive Device: FWW slow and antalgic Exercises Supine Ex: Ankle pumps, Quad Set, Heel Slides, Straight leg raise Supine Reps: 15 Seated Therapy Exercises: Ankle pumps, Long arc quads Seated Reps: 15 Assessment Patient up in recliner with needs met. Improved right knee AROM. Plan dismissal tomorrow after PT. PT Ground School Instructor Goals Detention Goals PT Ground School Instructor Goals Time Frame: Feb 21, 2021 Roll Left & Right (QC): 6 Sit to Lying (QC): 6 Lying-Sitting on Side/Bed(QC): 6 Sit to Stand (QC): 6 Chair/Inf-im-Tgjex Xfer(QC): 6 Toilet Transfer (QC): 6 Does the Patient Walk: Yes Walk 10 feet (QC): 6 Walk 50ft with 2 Turns (QC): 6 Walk 150 ft (QC): 6 1 Step (curb) (QC): 6 4 Steps (QC): 6 PT Plan Treatment/Plan Treatment Plan: Continue Plan of Care Treatment Plan: Bed Mobility, Education, Functional Activity Kandice, Functional Strength, Gait, Safety, Therapeutic Exercise, Transfers Treatment Duration: Feb 21, 2021 Frequency: 11 times per week Estimated Hrs Per Day: .5 hour per day Patient and/or Family Agrees t: Yes Time/GCodes Time In: 820 Time Out: 845 Total Billed Treatment Time: 25 Total Billed Treatment 1 visit EX 15 min GT 10 min NAA JACKSON PT Feb 15, 2021 09:50
[2021-02-15 11:16] VITALS: BP 188/79
[2021-02-15] MEDS ORDERED: hydrALAZINE (APESOLINE) 20 MG/ML VIAL ONE (11:55)
[2021-02-15] MEDS ORDERED: hydrALAZINE (APESOLINE) 20 MG/ML VIAL IV PRN ×2 (12:00→16:15)
--- NOTE | 2021-02-15 13:05 | Anesthesia-General Post-Op ---
General Patient Condition Mental Status/LOC: Same as Preop Cardiovascular: Satisfactory (some hypertension, likely pain related. Adductor canal benefit has peaked/ reached end duration. ) Nausea/Vomiting: Absent Respiratory: Satisfactory Pain: Controlled Complications: Absent Post Op Complications Complications None Follow Up Care/Instructions Patient Instructions None needed. Anesthesia/Patient Condition Patient Condition Patient is doing well, no complaints, stable vital signs, no apparent adverse anesthesia problems. No complications reported per nursing. YOLANDA TERRY CRNA Feb 15, 2021 13:05
--- NOTE | 2021-02-15 14:20 | Physical Therapy Daily Note ---
PT Daily Note-Current Subjective Patient voices concern with elevated BP. Agrees to PT. Mental Status Attachments: IV Transfers SCALE: Activities may be completed with or without assistive devices. 3-Nlysakqoqy-jbjdqvn completes the activity by him/herself with no assistance from a helper. 5-Set-up or Clean-up Assistance-helper sets up or cleans up; patient completes activity. [place] assists only prior to or following the activity. 4-Supervision or Touching Assistance-helper provides verbal cues and/or touching/steadying and/or contact guard assistance as patient completes activity. Assistance may be provided throughout the activity or intermittently. 3-Partial/Moderate Assistance-helper does LESS THAN HALF the effort. [place] lifts, holds or supports trunk or limbs, but provides less than half the effort. 2-Substantial/Maximal Assistance-helper does MORE THAN HALF the effort. [place] lifts or holds trunk or limbs and provides more than half the effort. 4-Usudhtjhw-nbuqja does ALL the effort. Patient does none of the effort to complete the activity. Or, the assistance of 2 or more helpers is required for the patient to complete the activity. If activity was not attempted, code reason: 7-Patient Refused. 9-Not Applicable-not attempted and the patient did not perform the activity before the current illness, exacerbation or injury. 10-Not Attempted due to Environmental Limitations-(lack of equipment, weather restraints, etc.). 88-Not Attempted due to Medical Conditions or Safety Concerns. Sit to Stand (QC): 4 Chair/Vnh-in-Yhyfx Xfer(QC): 4 Weight Bearing Right Lower Extremity: Right Weight Bearing/Tolerated Left Lower Extremity: Left Full Weight Bearing Gait Training Does the Patient Walk?: Yes Distance: 10' Walk 10 feet (QC): 4 Gait Assistive Device: FWW Exercises Supine Ex: Ankle pumps, Quad Set, Heel Slides, Straight leg raise Supine Reps: 12 Seated Therapy Exercises: Ankle pumps, Long arc quads Seated Reps: 15 Treatments CPM 0-[address] with polar pack after treatment Assessment Patient progressing with treatment plan. Increase activity and ROM right knee. PT Canal Driver Goals Canal Driver Goals PT Correction Goals Time Frame: Feb 21, 2021 Roll Left & Right (QC): 6 Sit to Lying (QC): 6 Lying-Sitting on Side/Bed(QC): 6 Sit to Stand (QC): 6 Chair/Akr-vq-Mjpup Xfer(QC): 6 Toilet Transfer (QC): 6 Does the Patient Walk: Yes Walk 10 feet (QC): 6 Walk 50ft with 2 Turns (QC): 6 Walk 150 ft (QC): 6 1 Step (curb) (QC): 6 4 Steps (QC): 6 PT Plan Treatment/Plan Treatment Plan: Continue Plan of Care Treatment Plan: Bed Mobility, Education, Functional Activity Kandice, Functional Strength, Gait, Safety, Therapeutic Exercise, Transfers Treatment Duration: Feb 21, 2021 Frequency: 11 times per week Estimated Hrs Per Day: .5 hour per day Patient and/or Family Agrees t: Yes Time/GCodes Time In: 1250 Time Out: 1313 Total Billed Treatment Time: 23 Total Billed Treatment 1 visit EX x 2 23 min NAA JACKSON PT Feb 15, 2021 14:20
[2021-02-15 15:59] VITALS: BP 184/72
--- NOTE | 2021-02-15 16:33 | Occ Therapy Progress Note ---
Therapy Progress Note OT order received, chart reviewed. OT talked with pt. in room. Pt. in bed. Had just got back on CPM machine. He reports 9/10 knee pain but has had medication. Pt. reports that he was up ambulating earlier, and his BP after was approximately 200/100. Pt has since been given medication to bring it down. He was concerned and requested to not have to get up again at this time. OT took BP again. It currently is 192/91. Pt. and OT talked about prior history, and pt. had other knee replaced last year. He is aware of AE, but agrees to practice it tomorrow for independence at home with LE bathing/dressing. Pt. does state that he might have issues with cleansing after toileting. OT checked to bring in toilet tongs for pt. Unfortunately, rehab is out at this time. Will order more. Will evaluate pt. in a.m. when pt. feeling better. 1, visit x 10minutes [id number] KRISTEN NDIAYE OT Feb 15, 2021 16:33
[2021-02-15 19:17] VITALS: BP 162/80
[2021-02-15] MEDS: traZODone 150 MG (DESYREL) TABLET PO SCH (21:19)
[2021-02-15] MEDS: MELATONIN 10 MG TABLET PO SCH (21:19)
[2021-02-16 00:23] VITALS: BP 132/79
[2021-02-16] MEDS: oxyCODONE/APAP 5/325MG (PERCOCET 5) TABLET PO PRN ×2 (03:45→08:55)
[2021-02-16] MEDS: NS IV 1000 ML 1,000 ML IV SCH (03:45)
[2021-02-16 04:28] VITALS: BP 131/78
[2021-02-16 04:37] LABS: HEMOGLOBIN 12.9 g/dL (13.3-17.7)
[2021-02-16] MEDS: MULTIVIT W/MINERALS TAB (THERAGRAN M) PO SCH (05:41)
--- NOTE | 2021-02-16 06:55 | Progress Note ---
Standard Progress Note Progress Notes/Assess & Plan Date Seen by a Provider: Feb 16, 2021 Time Seen by a Provider: 06:54 Progress/Assessment & Plan post op check no complaints radiographs--HW well postioned without fracture RLE--2 plus DP pulse. Intact sensation to light touch throughout. Intact DF and PF of toes and ankle s/p R TKA mobilize as able Final Diagnosis no complaints Vital Signs Date Time Temp Pulse Resp B/P (MAP) Pulse Ox O2 Delivery O2 Flow Rate FiO2 02/16/21 05:42 18 02/16/21 04:28 37.1 93 17 131/78 (95) 95 Room Air 02/16/21 00:23 37.4 110 17 132/79 (96) 93 Room Air 02/15/21 20:15 Room Air 02/15/21 19:17 36.7 100 22 162/80 (107) 96 Room Air 02/15/21 17:17 24 02/15/21 15:59 37.4 83 24 184/72 (109) 96 Room Air 02/15/21 11:16 37.4 83 20 188/79 (115) 97 Room Air 02/15/21 08:00 97 Room Air 3.00 02/15/21 07:32 73 20 140/75 (96) 97 Room Air I & O 02/16/21 07:00 Intake Total 1400 ml Output Total 3300 ml Balance -1900 ml Laboratory Tests Test 02/16/21 04:10 Range/Units Hemoglobin 12.9 L 13.3-17.7 g/dL Hematocrit 40 40-54 % RLE--incision clean and dry. No calf tenderness. Neg Xiomara's s/p RTKA doing well DC after PT today HUSSAIN SOTELO MD Feb 16, 2021 06:55
[2021-02-16] MEDS ORDERED: morphine INJ 4 MG/ML 1 ML (VIAL/SYRINGE) IVP PRN (07:00)
--- NOTE | 2021-02-16 07:10 | DISCHARGE SUMMARY ---
DATE OF SERVICE: DIAGNOSES: 1. Right knee primary osteoarthritis. 2. Hypertension. PROCEDURE: Right total knee arthroplasty. SUMMARY: The patient is a 65-year-old gentleman who was admitted the day of right total knee arthroplasty, which he underwent without complications. Postoperatively, he did well. At the time of discharge, his wound was clean and dry and no calf tenderness. Negative Homans sign. CONDITION AT DISCHARGE: Good. DISCHARGE DIET: Regular. FOLLOWUP: Followup is in three weeks. Home physical therapy has been arranged. DISCHARGE MEDICATIONS: Home medications, aspirin and then Percocet as needed for pain. ACTIVITIES: Weightbearing as tolerated with assistive devices as needed. DIET: Regular. Job ID: [id number] DocumentID: [id number] Dictated Date: 02/15/2021 18:49:55 Alteration Manager Date: 02/16/2021 07:09:29 Dictated By: HUSSAIN SOTELO MD
[2021-02-16 07:31] VITALS: BP 165/74
[2021-02-16] MEDS: ASPIRIN E.C. 81 MG (ECOTRIN) TAB PO SCH ×2 (07:42→08:56)
[2021-02-16] MEDS: LORATADINE (CLARITIN) 10 MG TAB PO SCH (08:56)
[2021-02-16] MEDS: SENNA W/DOCUSATE (SENOKOT S) TABLET PO SCH (08:56)
[2021-02-16] MEDS: LOSARTAN 100 MG (COZAAR) TABLET PO SCH (08:56)
[2021-02-16] MEDS: PANTOPRAZOLE 40 MG (PROTONIX) TAB PO SCH (08:56)
[2021-02-16] MEDS: ETODOLAC 300 MG (LODINE) CAP PO SCH (08:56)
[2021-02-16] MEDS: KETOCONAZOLE 2% CREAM 15 GM (NIZORAL) TP SCH (08:58)
[2021-02-16] MEDS: OTEZLA 30 MG TABLET PO SCH (08:58)
[2021-02-16] MEDS: ENOXAPARIN 30 MG/0.3 ML (LOVENOX) SYR SC SCH (08:58)
--- NOTE | 2021-02-16 10:18 | Physical Therapy Daily Note ---
PT Daily Note-Current Subjective Patient agrees to PT. Pain Numeric Pain Scale: 5-Moderate Pain Location: Right Location Body Site: Knee Pain Description: Acute Mental Status Patient Orientation: Normal For Age Attachments: IV Transfers SCALE: Activities may be completed with or without assistive devices. 0-Ssjevovasj-sngizib completes the activity by him/herself with no assistance from a helper. 5-Set-up or Clean-up Assistance-helper sets up or cleans up; patient completes activity. [place] assists only prior to or following the activity. 4-Supervision or Touching Assistance-helper provides verbal cues and/or touching/steadying and/or contact guard assistance as patient completes activity. Assistance may be provided throughout the activity or intermittently. 3-Partial/Moderate Assistance-helper does LESS THAN HALF the effort. [place] lifts, holds or supports trunk or limbs, but provides less than half the effort. 2-Substantial/Maximal Assistance-helper does MORE THAN HALF the effort. [place] lifts or holds trunk or limbs and provides more than half the effort. 7-Kgpgpiwko-kppoqc does ALL the effort. Patient does none of the effort to complete the activity. Or, the assistance of 2 or more helpers is required for the patient to complete the activity. If activity was not attempted, code reason: 7-Patient Refused. 9-Not Applicable-not attempted and the patient did not perform the activity before the current illness, exacerbation or injury. 10-Not Attempted due to Environmental Limitations-(lack of equipment, weather restraints, etc.). 88-Not Attempted due to Medical Conditions or Safety Concerns. Sit to Stand (QC): 6 Weight Bearing Right Lower Extremity: Right Weight Bearing/Tolerated Left Lower Extremity: Left Full Weight Bearing Gait Training Does the Patient Walk?: Yes Distance: 150' Walk 10 feet (QC): 6 Walk 50 ft with 2 Turns(QC): 6 Walk 150 ft (QC): 6 Gait Assistive Device: FWW slow and antalgic (appears to self limit and applies minimal weight through right LE) Stair Training 1 Step (curb) (QC): 7 4 Steps (QC): 7 Exercises Seated Therapy Exercises: Ankle pumps, Long arc quads Seated Reps: 12 (2 sets with patient ceasing during session due to pain with meds issued/EMERGENCY MEDCL EMT ) Assessment Patient tolerated treatment and will dismiss to home on this date. Patient instructed to perform written HEP issued at preop. Patient voices understanding. Patient also instructed to be up ad georgina in room to increase activity prior to returning to home. PT Farm Agent Goals Detention Goals PT Farm Agent Goals Time Frame: Feb 21, 2021 Roll Left & Right (QC): 6 Sit to Lying (QC): 6 Lying-Sitting on Side/Bed(QC): 6 Sit to Stand (QC): 6 Chair/Isj-rc-Gfjji Xfer(QC): 6 Toilet Transfer (QC): 6 Does the Patient Walk: Yes Walk 10 feet (QC): 6 Walk 50ft with 2 Turns (QC): 6 Walk 150 ft (QC): 6 1 Step (curb) (QC): 6 4 Steps (QC): 6 PT Plan Treatment/Plan Treatment Plan: Discontinue PT Treatment Plan: Bed Mobility, Education, Functional Activity Kandice, Functional Strength, Gait, Safety, Therapeutic Exercise, Transfers Treatment Duration: Feb 21, 2021 Frequency: 11 times per week Estimated Hrs Per Day: .5 hour per day Patient and/or Family Agrees t: Yes Time/GCodes Time In: 750 Time Out: 813 Total Billed Treatment Time: 23 Total Billed Treatment 1 visit EX 8 min GT 15 min NAA JACKSON PT Feb 16, 2021 10:18
--- NOTE | 2021-02-16 11:31 | Occupational Therapy Eval ---
OT Evaluation-General/PLF Medical Diagnosis Admission Date Feb 14, 2021 at 06:06 Medical Diagnosis: right TKR Onset Date: Feb 14, 2021 Therapy Diagnosis Therapy Diagnosis: Decreased ADL skills Height/Weight Height (Feet): 5 Height (Inches): 6.00 Weight (Pounds): 220 Precautions Precautions/Isolations: Standard Precautions Weight Bear Status Weight Bearing Restriction: Weight Bearing/Tolerated Referral Physician: Loyd Referral Reason: Activity Tolerance, Self Care, Evaluation/Treatment, Strengthening/ROM Medical History Pertinent Medical History: Arthritis, GERD Additional Medical History Elective Right TK Current History Pt. had left knee replaced approximately a year ago. Reviewed History: Yes Social History Home: Single Level Current Living Status: Spouse Entry Into Home: Stairs With Railing Steps Into Home: 4 ADL-Prior Level of Function SCALE: Activities may be completed with or without assistive devices. 2-Bgsuftqrfd-ajsvybv completes the activity by him/herself with no assistance from a helper. 5-Set-up or Clean-up Assistance-helper sets up or cleans up; patient completes activity. [place] assists only prior to or following the activity. 4-Supervision or Touching Assistance-helper provides verbal cues and/or touching/steadying and/or contact guard assistance as patient completes activity. Assistance may be provided throughout the activity or intermittently. 3-Partial/Moderate Assistance-helper does LESS THAN HALF the effort. [place] lifts, holds or supports trunk or limbs, but provides less than half the effort. 2-Substantial/Maximal Assistance-helper does MORE THAN HALF the effort. [place] lifts or holds trunk or limbs and provides more than half the effort. 7-Yakiwjcxl-cbxmxn does ALL the effort. Patient does none of the effort to complete the activity. Or, the assistance of 2 or more helpers is required for the patient to complete the activity. If activity was not attempted, code reason: 7-Patient Refused. 9-Not Applicable-not attempted and the patient did not perform the activity before the current illness, exacerbation or injury. 10-Not Attempted due to Environmental Limitations-(lack of equipment, weather restraints, etc.). 88-Not Attempted due to Medical Conditions or Safety Concerns. ADL PLOF Comments Pt. states that he is typically independent with daily skills. He is able to bathe/dress self. Does not use a walker, but does have one. Self Care: Independent Functional Cognition: Independent DME/Equipment: Bath Chair, Shower, Tub/Shower DME/Equipment Comments Walker Drive Self: Yes OT Current Status Subjective Pt. indicates pain, but does not state pain level. Pt. has had medication. Pt. with polar pack on. Mental Status/Objective Patient Orientation: Person, Place, Time, Situation Current Upper Extremity ROM WFL Upper Extremity Strength WFL ADL-Treatment Eating (QC): 6 Oral Hygiene (QC): 6 Upper Body Dressing (QC): 5 (per pt. and per clinical judgement.) Lower Body Dressing (QC): 4 (Per clinical judgement, pt. would required CGA in stance. Pt. able to demonstrate ability use AE for LE use.) On/Off Footwear (QC): 5 (Set up with AE.) Other Treatments Pt. up in chair. Very pleasant. Agrees to work with OT. Pt. aware of AE for LE dressing, but does not have any. Interested in learning for home use. OT brings in equipment and educates pt. Pt. practices doffing/donning slipper socks with set up. No difficulty. Pt. educated in correct technique to don pants. Also talked about toileting. Pt. interested in toileting tongs for home use, however, therapy department out of them at this time. Pt. aware of them however. Pt. educated on equipment and where to get it. States that spouse can assist as well if needed, and he remembers techniques from having other knee replaced a year ago. Pt. would like to stay up in chair. Using urinal with no difficulty. Will discharge soon. No further OT needs at this time. Education OT Patient Education: Correct positioning, Modified ADL techniques, Progress toward Goal/Update tx plan, Purpose of tx/functional activities, Reviewed precautions, Rehab process, Use of adapted equipment Teaching Recipient: Patient Teaching Methods: Demonstration, Discussion Response to Teaching: Verbalize Understanding, Return Demonstration OT Concrete Mixer Operator Helper Goals Concrete Mixer Operator Helper Goals Time Frame: Feb 16, 2021 Eating (QC): 6 Oral Hygiene (QC): 5 On/Off Footwear (QC): 5 (With AE) Additional Goals: 1-Demonstrate ADL Tasks, 2-Verbalize Understanding 1=Demonstrate adherence to instructed precautions during ADL tasks. 2=Patient will verbalize/demonstrate understanding of assistive devices/modifications for ADL. 3=Patient will improve strength/tolerance for activity to enable patient to perform ADL's. Pt. to demonstrate full understanding and knowledge of adaptive equipment for LE dressing previous to discharge home to increase overall independence with daily tasks. OT Education/Plan Problem List/Assessment Assessment: No Skilled OT Needs ID'd Discharge Recommendations Plan/Recommendations: Discontinue OT Treatment Plan/Plan of Care Patient would benefit from OT for education, treatment and training to promote independence in ADL's, mobility, safety and/or upper extremity function for ADL's. Plan of Care: OTHER Treatment Duration: Feb 16, 2021 Frequency: 1 time per week Estimated Hrs Per Day: .25 hour per day Agreement: Yes Rehab Potential: Good Time/GCodes Start Time: 11:05 Stop Time: 11:15 Total Time Billed (hr/min): 10 Billed Treatment Time 1, KRISTEN AMIN OT Feb 16, 2021 11:31
[2021-02-16 11:32] VITALS: BP 161/72
[2021-02-16 12:00] VITALS: BP 161/72
== END 2021-02-16 13:00 | disposition home health service (06) | DRG 470 ==
LOC: 4TH 06:06 → SURG 06:07 → 4TH 09:50
PROVIDERS: ADMIT Orthopaedic Surgery; ATTEND Orthopaedic Surgery
PROC: 0SRC0J9 Replacement of Right Knee Joint with Synthetic Substitute, Cemented, Open Approach (ICD-10-PCS; principal; 2021-02-14 07:31)
DX: M17.11 Unilateral primary osteoarthritis, right knee (principal); I10 Essential (primary) hypertension; L40.9 Psoriasis, unspecified
CPT/HCPCS: 36415; 73560; 85014; 85018; 86850; 86900; 86901; 94664

== ENCOUNTER → 2021-07-20 | Outpatient (CLI) | payer MEDICARE, OTHER ==
[~2021-07-20] MED LIST changes: +ASPI-1238 PO; +CETI10TA17 PO; +MELA10TA2 PO; +TRAZ150T72 PO
--- NOTE | 2021-07-20 14:50 | Diagnostic Imaging Report ---
PROCEDURE: CT right lower extremity without contrast. TECHNIQUE: Axially acquired CT was obtained through the right lower extremity without intravenous contrast. Coronal and sagittal reformations were also performed. Auto Exposure Controls were utilized during the CT exam to meet ALARA standards for radiation dose reduction. INDICATION: Right knee replacement, popping, right knee pain, difficulty going up stairs. COMPARISON: Radiographs from 02/14/2021. FINDINGS: There is a fracture of the superior pole of the patella, which is displaced proximally by about 1 cm. There is no significant loosening about the hardware otherwise. No other fractures are seen. There is a large right knee joint effusion, and there is thickening of the distal quadriceps tendon. No focal muscular atrophy is seen. No soft tissue masses or fluid collections are identified. IMPRESSION: 1. Displaced fracture of the superior pole of the right patella. There is thickening of the distal quadriceps tendon. 2. Right knee arthroplasty with no hardware complication seen. 3. Large right knee joint effusion. Dictated by: Dictated on workstation # [id number]
== END ==
LOC: RAD 10:59
PROVIDERS: ATTEND Orthopaedic Surgery
DX: S82.001A Unspecified fracture of right patella, initial encounter for closed fracture (principal); X58.XXXA Exposure to other specified factors, initial encounter; Z96.651 Presence of right artificial knee joint
CPT/HCPCS: 73700

== ENCOUNTER 2021-08-01 05:36 | Outpatient (CLI) | payer MEDICARE, OTHER ==
[~2021-08-01] VITALS: Ht 167 cm; Wt 96.8 kg
[2021-08-05] MEDS ORDERED: HYDR25TA4 PO (08:05)
== END 2021-08-05 07:54 | disposition home or self-care (01) ==
LOC: PREOP 05:36
PROVIDERS: ATTEND Orthopaedic Surgery
DX: Z01.818 Encounter for other preprocedural examination (principal)

== ENCOUNTER 2021-08-08 07:37 | Day surgery (SDC) | payer MEDICARE, OTHER ==
--- NOTE | 2021-08-01 07:20 | HISTORY AND PHYSICAL ---
DATE OF SERVICE: INPATIENT ADMISSION HISTORY AND PHYSICAL This will be for inpatient admission on 08/08/2021 for right knee patellar fracture repair. HISTORY OF PRESENT ILLNESS: The patient is a 65-year-old gentleman who is 6 months status post right total knee arthroplasty. He reports anterior knee pain, which has been present for over the last month. He denies any specific injury, but reports difficulty with going up stairs. He reports no fever, chills or night sweats. Radiographs and MRI were obtained, which revealed a bony fragment off the superior pole of the patella with an intact patellar button. Due to pain and activity limitations, the patient was elected to proceed with surgical intervention. REVIEW OF SYSTEMS: No chest pain, no shortness of breath, no dysuria. PAST MEDICAL HISTORY: Lumbar stenosis, psoriasis, sleep apnea, hypertension, gout, degenerative disk disease at L3 through L5, reflux, basal cell carcinoma of the face, hemorrhoids. PAST SURGICAL HISTORY: Tonsillectomy, reflux, right index finger, colonoscopy, lumbar fusion, bilateral total knee arthroplasties. FAMILY HISTORY: Significant for cancer, ischemic heart disease. PRIMARY CARE PROVIDER: Dr. Grewal. MEDICATIONS: 1. Sildenafil. 2. Otezla. 3. Hydrochlorothiazide 4. Sucralfate. 5. Melatonin. 6. Losartan. 7. Tramadol. 8. Aspirin. 9. Clobetasol. 10. Pantoprazole. 11. Diclofenac. 12. Trazodone. ALLERGIES: No known drug allergies. SOCIAL HISTORY: The patient denies alcohol and tobacco use. PHYSICAL EXAMINATION: GENERAL: The patient is well developed, well nourished, in no acute distress. HEENT: Normocephalic, atraumatic. Pupils are equal, round and reactive to light. Oropharynx is clear. NECK: Supple, no lymphadenopathy. LUNGS: Clear to auscultation bilaterally. HEART: Regular rate and rhythm. ABDOMEN: Soft, nontender, nondistended. EXTREMITIES: The patient ambulates with a normal heel-to-toe gait. There is a palpable gap of his quadriceps insertion at the superior pole of the patella, which is tender to palpation. He cannot perform a straight leg raise and has no gross extensor lag. He has active flexion 120 degrees. There is no varus or valgus laxity and negative anterior and posterior drawer. IMPRESSION: Superior pole patellar fracture. PLAN: Open reduction and internal fixation of the right superior pole of the patella with quadriceps repair and possible revision of the patellar component. The risks, benefits, options, ramifications and recovery have been discussed at length with the patient. He understands and wishes to proceed. Job ID: [id number] DocumentID: [id number] Dictated Date: 07/23/2021 09:32:26 [employer] Team Member Date: 07/23/2021 10:23:33 Dictated By: HUSSAIN SOTELO MD
[~2021-08-08] VITALS: Ht 167 cm; Wt 96.8 kg
[2021-08-08] VITALS (10 sets, daily range): BP systolic 137–194; BP diastolic 69–104
[~2021-08-08 07:37] MED LIST changes: +HYDR25TA4 PO
[2021-08-08] MEDS ORDERED: LACTATED RINGERS 1,000 ML IV PRN (08:00)
[2021-08-08] MEDS ORDERED: ceFAZolin INJECTION 1,000 MG VIAL IV ONE (08:00)
[2021-08-08] MEDS: LACTATED RINGERS 1,000 ML IV PRN ×2 (08:40→10:26)
[2021-08-08] MEDS ORDERED: oxyCODONE/APAP 5/325MG (PERCOCET 5) TABLET PO PRN (08:45)
[2021-08-08] MEDS ORDERED: MIDAZOLAM 2 MG/2 ML (VERSED) VIAL ONE (09:24)
[2021-08-08] MEDS ORDERED: ROPIVACAINE 5MG/ML 30ML VIAL ONE (09:24)
[2021-08-08] MEDS ORDERED: LIDOCAINE PF 2% 5 ML (XYLOCAINE) VIAL ONE ×3 (09:24→09:41)
[2021-08-08] MEDS ORDERED: fentaNYL INJ 100 MCG/2 ML AMP ONE (09:24)
[2021-08-08] MEDS ORDERED: SEVOFLURANE (ULTANE) 15 ML INHAL SOLN ONE ×2 (09:38→11:13)
[2021-08-08] MEDS ORDERED: proPOfol 200 MG/20 ML (DIPRIVAN) VIAL IV ONE (09:38)
[2021-08-08] MEDS ORDERED: ONDANSETRON 4 MG/2 ML (SDV) Z0FRAN ONE (09:38)
--- NOTE | 2021-08-08 09:44 | Progress Note-Pre Operative ---
Pre-Operative Progress Note H&P Reviewed The H&P was reviewed, patient examined and no changes noted. Date Seen by Provider: Aug 08, 2021 Time Seen by Provider: 09:00 Date H&P Reviewed: Aug 08, 2021 Time H&P Reviewed: 07:11 Pre-Operative Diagnosis: right patella fracture status post TKA HUSSAIN SOTELO MD Aug 08, 2021 09:44
--- NOTE | 2021-08-08 09:45 | Progress Note-Post Operative ---
Post-Operative Progess Note Surgeon (s)/Quarter Lining Smoother (s) Surgeon HUSSAIN SOTELO MD Quarter Lining Smoother: Bryan Rasheed Pre-Operative Diagnosis right patella fracture status post TKA Post-Operative Diagnosis right patella fracture status post TKA Procedure & Operative Findings Date of Procedure 08/08/21 Procedure Performed/Findings right patella fragment excision and quadriceps repair Anesthesia Type GETA plus regional block Estimated Blood Loss Estimated blood loss (mL): minimal Specimens/Packing Specimens Removed bony fragment Packing: none HUSSAIN SOTELO MD Aug 08, 2021 09:45
[2021-08-08] MEDS ORDERED: ceFAZolin INJECTION 1,000 MG ONE (10:19)
[2021-08-08] MEDS ORDERED: BUPIVACAINE 0.25% 30 ML (SENSORCAINE) VIAL ONE (10:53)
--- NOTE | 2021-08-08 11:26 | Anesthesia-General Post-Op ---
General Patient Condition Mental Status/LOC: Same as Preop Cardiovascular: Satisfactory Nausea/Vomiting: Absent Respiratory: Satisfactory Pain: Controlled Complications: Absent Post Op Complications Complications None Follow Up Care/Instructions Patient Instructions None needed. Anesthesia/Patient Condition Patient Condition Patient is doing well, no complaints, stable vital signs, no apparent adverse anesthesia problems. No complications reported per nursing. SHELLI STUART CRNA Aug 08, 2021 11:26
[2021-08-08] MEDS ORDERED: ONDANSETRON 4 MG/2 ML (SDV) Z0FRAN IVP PRN (11:30)
[2021-08-08] MEDS ORDERED: morphine INJ 10 MG/ML 1ML (SYR OR VIAL) IVP ONE (11:30)
[2021-08-08] MEDS ORDERED: fentaNYL INJ 100 MCG/2 ML AMP IVP ONE (11:30)
[2021-08-08] MEDS ORDERED: MEPERIDINE (DEMEROL) INJ 50 MG/ML IVP ONE (11:30)
--- NOTE | 2021-08-08 16:17 | OPERATIVE REPORT ---
DATE OF SERVICE: 08/08/2021 PREOPERATIVE DIAGNOSIS: Right patellar fracture, status post total knee arthroplasty. POSTOPERATIVE DIAGNOSIS: Right patellar fracture, status post total knee arthroplasty. PROCEDURE PERFORMED: 1. Right patellar bony fragment excision. 2. Right quadriceps tendon repair. SURGEON: Cresencio Sotelo MD REPAIRER FINISHED METAL: Bryan Rasheed, who assisted throughout the procedure and closed the incision. ANESTHESIA: General endotracheal by Bryan Schilling CRNA. TOURNIQUET TIME: Approximately 60 minutes at 300 mmHg. ESTIMATED BLOOD LOSS: Minimal. DRAINS: None. COMPLICATIONS: None. POSTOPERATIVE PLAN: Weightbearing as tolerated with 0 to 90 degrees range of motion for 2 weeks. The patient was transferred to recovery room awake and stable condition. STATEMENT OF MEDICAL NECESSITY: The patient is a 65-year-old gentleman who underwent a total knee arthroplasty approximately 6 months ago. He presented with complaints of pain anteriorly. Radiographs revealed an avulsion of the superior aspect of the patella, but the patient had good quad function and control, but due to pain and lack of improvement with home exercises, the patient elected to proceed with surgical intervention. DESCRIPTION OF PROCEDURE: After risks and benefits of procedure were discussed and questions were answered, and informed consent was signed and placed on chart. The operative site was confirmed in the preoperative holding area initialed by the surgeon. The patient was then transferred to the operating room and after adequate levels of general endotracheal anesthetic were obtained, a timeout was called, confirming the operative site. Right lower extremity was prepped and draped in the usual sterile fashion. The tourniquet was then inflated to 300 mmHg. The previous incision was utilized. Underlying soft tissues were carefully dissected. Hemostasis was obtained with cautery. The previous arthrotomy was used and the previously placed sutures were removed. The undersurface of patella was closely inspected. The patella button implant was stable. There had been an avulsion of the superior most aspect of the patella. This was excised sharply. This left a partial thickness defect in the distal quadriceps tendon, which was repaired in wtbv-zy-chcy fashion using #2 Tevdek. The remainder of the quadriceps was intact and the insertion was intact. The joint was irrigated with pulse lavage. Arthrotomy was closed with #2 Tevdek in nwtdow-sk-mewmf interrupted fashion. The knee was then flexed and the repair was stable. The subcutaneous tissues were further irrigated, 0 Vicryl was used for deep subcutaneous tissue, 2-0 Vicryl for the superficial subcutaneous tissue, juju used on the skin. A soft dressing was applied and a brace. The tourniquet was deflated. The patient was transferred to the recovery room awake and in stable condition. Job ID: [id number] DocumentID: [id number] Dictated Date: 08/08/2021 11:22:13 [employer]drin[employer] Machine Operator Date: 08/08/2021 16:17:01 Dictated By: CRESENCIO SOTELO MD
== END 2021-08-08 14:20 | disposition home or self-care (01) ==
LOC: SDC 07:37
PROVIDERS: ATTEND Orthopaedic Surgery
DX: T84.84XA Pain due to internal orthopedic prosthetic devices, implants and grafts, initial encounter (principal); S83.094A Other dislocation of right patella, initial encounter; I10 Essential (primary) hypertension; G47.33 Obstructive sleep apnea (adult) (pediatric); K21.9 Gastro-esophageal reflux disease without esophagitis; Z79.82 Long term (current) use of aspirin; Z79.899 Other long term (current) drug therapy; Z96.651 Presence of right artificial knee joint; Z99.89 Dependence on other enabling machines and devices; Z85.828 Personal history of other malignant neoplasm of skin; Z90.89 Acquired absence of other organs; Z79.891 Long term (current) use of opiate analgesic
CPT/HCPCS: 87081

== ENCOUNTER 2022-05-27 05:28 | Outpatient (CLI) | payer MEDICARE, OTHER ==
[~2022-05-27] VITALS: Ht 165.1 cm; Wt 100.5 kg
[2022-05-27] MEDS ORDERED: KETO15CR2 TP (13:26)
[2022-05-27] MEDS ORDERED: SILD20TA14 PO (13:26)
[2022-05-27] MEDS ORDERED: CLOB15CR3 TP (13:26)
[2022-05-27] MEDS ORDERED: LEVO5TAB28 PO (13:26)
== END 2022-05-27 13:46 ==
LOC: PREOP 05:28
PROVIDERS: ATTEND Podiatrist Foot & Ankle Surgery
DX: Z01.818 Encounter for other preprocedural examination (principal)

== ENCOUNTER 2022-06-03 06:01 | Day surgery (SDC) | payer MEDICARE, OTHER ==
[2022-06-03] VITALS (11 sets, daily range): BP systolic 101–163; BP diastolic 61–88
[~2022-06-03] VITALS: Ht 165 cm; Wt 100.5 kg
[~2022-06-03 06:01] MED LIST changes: +CLOB15CR3 TP; +LEVO5TAB28 PO
[2022-06-03] MEDS ORDERED: ceFAZolin INJECTION 1,000 MG in NS (IVPB) 50 ML IV ONE (06:45)
[2022-06-03] MEDS ORDERED: LACTATED RINGERS 1,000 ML IV PRN (06:45)
[2022-06-03] MEDS ORDERED: ceFAZolin INJECTION 1,000 MG ONE (07:08)
[2022-06-03] MEDS ORDERED: NS (IVPB) 50 ML ONE (07:08)
[2022-06-03] MEDS ORDERED: MIDAZOLAM 2 MG/2 ML (VERSED) VIAL ONE (07:15)
[2022-06-03] MEDS ORDERED: ONDANSETRON 4 MG/2 ML (SDV) Z0FRAN ONE (07:15)
[2022-06-03] MEDS ORDERED: fentaNYL INJ 100 MCG/2 ML AMP ONE (07:15)
[2022-06-03] MEDS ORDERED: proPOfol 200 MG/20 ML (DIPRIVAN) VIAL IV ONE (07:15)
[2022-06-03] MEDS ORDERED: LIDOCAINE PF 2% 5 ML (XYLOCAINE) VIAL ONE (07:15)
[2022-06-03] MEDS ORDERED: SEVOFLURANE (ULTANE) 15 ML INHAL SOLN ONE (07:15)
[2022-06-03] MEDS ORDERED: LIDOCAINE 1% INJ 20 ML VIAL ONE (07:36)
[2022-06-03] MEDS ORDERED: BUPIVACAINE 0.5% 30 ML (SENSORCAINE) VIAL ONE (07:36)
--- NOTE | 2022-06-03 07:46 | Progress Note-Pre Operative ---
Pre-Operative Progress Note Date of Available H&P: Jun 03, 2022 Date H&P Reviewed: Jun 03, 2022 Time H&P Reviewed: 07:45 Pre-Operative Diagnosis: Hallux Rigidus, Hypertrophic 2nd metatarsal, left EUGENIE FOWLER DPChristiano Jun 03, 2022 07:46
--- NOTE | 2022-06-03 09:43 | Anesthesia-General Post-Op ---
General Patient Condition Mental Status/LOC: Same as Preop Cardiovascular: Satisfactory Nausea/Vomiting: Absent Respiratory: Satisfactory Pain: Controlled Complications: Absent Post Op Complications Complications None Follow Up Care/Instructions Patient Instructions None needed. Anesthesia/Patient Condition Patient Condition Patient is doing well, no complaints, stable vital signs, no apparent adverse anesthesia problems. No complications reported per nursing. NATI WINSLOW CRNA Jun 03, 2022 09:43
[2022-06-03] MEDS ORDERED: morphine INJ 10 MG/ML 1ML (SYR OR VIAL) IVP ONE (09:45)
[2022-06-03] MEDS ORDERED: MEPERIDINE (DEMEROL) INJ 50 MG/ML IVP ONE (09:45)
[2022-06-03] MEDS ORDERED: PROMETHAZINE INJ 25 MG/ML (PHENERGAN) AMP IVP ONE (09:45)
[2022-06-03] MEDS ORDERED: ONDANSETRON 4 MG/2 ML (SDV) Z0FRAN IVP PRN (09:45)
[2022-06-03] MEDS ORDERED: HYDROmorphone 2 MG/ML VIAL (DILAUDID) IV ONE (09:45)
--- NOTE | 2022-06-03 09:49 | Progress Note-Post Operative ---
Post-Operative Progess Note Surgeon (s)/Stained Glass Artist (s) Surgeon EUGENIE FOWLER DPM Stained Glass Artist: none Pre-Operative Diagnosis Hallux Rigidus, Hypertrophic 2nd metatarsal, left Post-Operative Diagnosis Same Procedure & Operative Findings Date of Procedure 06/03/22 Procedure Performed/Findings Modified Cheilectomy with Floyd-Implant, 2nd metatarsal osteotomy, left foot Anesthesia Type General Estimated Blood Loss Estimated blood loss (mL): Minimal Specimens/Packing Specimens Removed none EUGENIE FOWLER DPM Jun 03, 2022 09:49
[2022-06-03] MEDS ORDERED: CEPH500C PO (09:53)
[2022-06-03] MEDS ORDERED: ACHD5005 PO (09:53)
[2022-06-03] MEDS ORDERED: HYDROcodone/APAP 5 MG/325 MG (LORTAB) TAB PO PRN (10:00)
[2022-06-03] MEDS ORDERED: LACTATED RINGERS 1,000 ML IV SCH (10:00)
--- NOTE | 2022-06-03 11:46 | Physical Therapy Ortho Eval ---
PT Orthopedic Evaluation Type of Surgery Hallux Rigidus, Hypertrophic 2nd metatarsal, left Prior Level of Function Current Living Status: Spouse Locomotion (Upon Admit): Independent Established Durable Medical Eq: Front Wheeled Walker, Straight Cane knee scooter Subjective Entry Into Home: Stairs With Railing Steps Into Home: 4 Steps Accessories: Railing Present Motor Control Motor Control: Motor Control WNL ROM ROM: WFL, except focal deficit Strength Strength: WFL Transfer SCALE: Activities may be completed with or without assistive devices. 8-Nmtmcwsxjn-gpeagoz completes the activity by him/herself with no assistance from a helper. 5-Set-up or Clean-up Assistance-helper sets up or cleans up; patient completes activity. [place] assists only prior to or following the activity. 4-Supervision or Touching Assistance-helper provides verbal cues and/or touching/steadying and/or contact guard assistance as patient completes activity. Assistance may be provided throughout the activity or intermittently. 3-Partial/Moderate Assistance-helper does LESS THAN HALF the effort. [place] lifts, holds or supports trunk or limbs, but provides less than half the effort. 2-Substantial/Maximal Assistance-helper does MORE THAN HALF the effort. [place] lifts or holds trunk or limbs and provides more than half the effort. 6-Zbyxbsual-kueqka does ALL the effort. Patient does none of the effort to complete the activity. Or, the assistance of 2 or more helpers is required for the patient to complete the activity. If activity was not attempted, code reason: 7-Patient Refused. 9-Not Applicable-not attempted and the patient did not perform the activity before the current illness, exacerbation or injury. 10-Not Attempted due to Environmental Limitations-(lack of equipment, weather restraints, etc.). 88-Not Attempted due to Medical Conditions or Safety Concerns. Transfers (B, C, W/C) (QC): 6 Gait Gait Assistive Device: FWW Right Lower Extremity: Right Weight Bearing Status RLE: Full Weight Bearing Left Lower Extremity: Left Weight Bearing Status LLE: Partial Weight Bearing Other Weight Bearing Inst.: heel contact on the left Gait (QC): 6 (heel contact) Stairs Patient reports his son will assist him getting into the house, however, did verbalize how to perform with FWW due to prior TKR Treatment Rendered Treatment: Gait Train, Step Train (verbal), Reviewed Precautions Assessment/Goals Goal Time Frame: 1 Visit Safe Ambulation: Yes Plan Treatment Plan: Discharge, Education, Gait, Safety PT/Family Agrees to Plan: Yes Time Time In: 1130 Time Out: 1139 Total Billed Treatment Time: 9 Billed Treatment Time 1 visit [facility] 9 min NAA JACKSON PT Jun 03, 2022 11:46
--- NOTE | 2022-06-03 13:12 | Diagnostic Imaging Report ---
INDICATION: Postop left foot pain. FINDINGS: 2 views. There has been hemiarthroplasty performed of the 1st MP joint. Alignment is good. There is a small surgical anchor within the head of the 2nd metatarsal. No fractures are seen. IMPRESSION: Arthroplasty of the great toe good alignment. Dictated by: Dictated on workstation # [id number]
--- NOTE | 2022-06-03 16:21 | OPERATIVE REPORT ---
DATE OF SERVICE: 06/03/2022 SURGEON: Akua Fowler DPM PREOPERATIVE DIAGNOSES: 1. Hallux rigidus, left. 2. Hypertrophic second metatarsal, left. POSTOPERATIVE DIAGNOSES: 1. Hallux rigidus, left. 2. Hypertrophic second metatarsal, left. PROCEDURE: 1. Modified cheilectomy with misa joint implant. 2. Second metatarsal osteotomy with screw fixation, left foot. WOUND CLASS: Clean. ANESTHESIA: General. HEMOSTASIS: Pneumatic thigh tourniquet at 250 mmHg. INDICATIONS: This 66-year-old male presents complaining of a painful left foot. Conservative therapy has met with unsatisfactory result. The patient is agreeable to surgical intervention after risks and complications were discussed at length. No guarantees were extended to the patient and he is willing to proceed. DESCRIPTION OF PROCEDURE: The patient was brought back to the operating table and placed in a secure supine position. Appropriate time-out was performed. Pneumatic thigh tourniquet was placed on the left lower extremity over several layers padding. Appropriate time-out was performed like I said. The left foot was then prepped and draped in normal sterile manner. The left foot was then elevated and allowed to exsanguinate after which the tourniquet was inflated to 250 mmHg. Attention was then directed to the dorsal aspect of the first metatarsophalangeal joint where a 5 cm longitudinal linear incision was created. The incision was deepened in the same plane down to the capsule where a longitudinal capsulotomy was performed. The capsular tissue was reflected medially and laterally, exposing the hypertrophic dorsal eminence of the base of the proximal phalanx as well as the head of the first metatarsal. The excess bone was reduced with a power sagittal saw and rongeur. This also occurred to the medial and lateral aspect of the first metatarsophalangeal joint. It was noted that there is no articular cartilage visible to the first metatarsal head and minimal to the base of the proximal phalanx. It was then decided that a joint implant would be implemented. We utilized a [employer] device to be applied to the phalanx side of the joint. First, a guidewire was placed into the middle aspect of the base of the proximal phalanx extended distally after which a cannulated reamer was utilized to prep the base of the proximal phalanx. Angulation correction was performed to avoid the lateral deviation to the hallux once the implant was applied. Once this maneuver was performed, the excess bone to the medial and plantar aspect of the base of the proximal phalanx was reduced with a rongeur. Next, a sizer was utilized to apply the correct size implant. A broach was then utilized, which was cannulated after which the size 1 [employer] misa-implant was applied to the base of the proximal phalanx. Appropriate range of motion with approximately 40 degrees of dorsiflexion was appreciate this time without crepitation. The wound was flushed with copious amounts of normal saline throughout the procedure and closure was performed in layers. Deep closure was performed with 3-0 Vicryl, superficial with 4-0 Vicryl, skin closed with 4-0 Prolene in a horizontal mattress type stitch. Attention was then directed to the dorsal aspect of the left second metatarsophalangeal joint where a 3 cm longitudinal linear incision was created. The incision was deepened down to the capsular tissue where a longitudinal capsulotomy was performed just lateral to the extensor digitorum longus. The incision was deepened down to the capsular tissue, which was reflected medially and laterally exposing hypertrophic second metatarsal head. Next, utilizing a power sagittal saw, a Poppy type osteotomy was performed. This allowed the capital fragment to translocate proximally and medially. It was fixated in its corrected position utilizing a 2.0 snap-off screw of 12 mm of length driven from dorsal to plantar. Excellent bony apposition and fixation was appreciated at this time. The excess bone to the dorsal aspect of the second metatarsal was reduced with a rongeur. The wound was flushed with copious amounts of normal saline. Excellent range of motion was appreciated the left second metatarsophalangeal joint. The wound was then closed in layers. Deep closure was performed with 3-0 Vicryl, superficial with 4-0 Vicryl, skin closure with 4-0 Prolene in a horizontal mattress type stitch. Postoperative injection consisted of 18 mL of 0.5% Marcaine injected in a local infusion to the surgical sites. Postoperative dressing consisted of Betadine-soaked Adaptic, sterile 4 x 4's, sterile Kerlix all secured with a Coban wrap. The patient tolerated the anesthesia and procedure well and was transported from the operating room to the recovery room with vital signs stable and vascular status intact to all digits of the left foot. I will see the patient back in 10 days period of time or sooner if necessary. Job ID: [id number] DocumentID: [id number] Dictated Date: 06/03/2022 10:05:33 Dermatological Surgeon Date: 06/03/2022 16:19:00 Dictated By: AKUA FOWLER DPM
== END 2022-06-03 11:50 | disposition home or self-care (01) ==
LOC: SDC 06:01
PROVIDERS: ATTEND Podiatrist Foot & Ankle Surgery
DX: M20.22 Hallux rigidus, left foot (principal); M89.372 Hypertrophy of bone, left ankle and foot; K21.9 Gastro-esophageal reflux disease without esophagitis; F17.210 Nicotine dependence, cigarettes, uncomplicated; E79.0 Hyperuricemia without signs of inflammatory arthritis and tophaceous disease; E66.8 Other obesity; M20.42 Other hammer toe(s) (acquired), left foot; M21.612 Bunion of left foot; I10 Essential (primary) hypertension; G47.33 Obstructive sleep apnea (adult) (pediatric); Z79.899 Other long term (current) drug therapy; Z68.36 Body mass index [BMI] 36.0-36.9, adult
CPT/HCPCS: 73620; 87081

== ENCOUNTER → 2022-08-08 | Outpatient (CLI) | payer MEDICARE, OTHER ==
[~2022-08-08] MED LIST changes: +ACHD5005 PO; +CEPH500C PO; +REGADENOSON 0.4 MG/5 ML SYR (LEXISCAN) IV ONE
[2022-08-08] MEDS: CATHETER FLUSH 10 ML SYR IVP PRN ×2 (07:18→08:11)
[2022-08-08 08:09] VITALS: BP 188/95
--- NOTE | 2022-08-08 12:21 | Cardiology Stress Test Report ---
Stress Test Report Date of Procedure/Referring: Date of Procedure: Aug 08, 2022 PCP Canelo Grewal DO Admitting Physician Admitting Physician: Attending Physician: Canelo Grewal DO Indications: CP Baseline Vital Signs Vital Signs Date Time Temp Pulse Resp B/P (MAP) Pulse Ox O2 Delivery O2 Flow Rate FiO2 08/08/22 08:09 94 16 188/95 (126) 96 Room Air Summary: Patient receive a resting and stress dose of Myoview, images were acquired and reviewed in the short axis view, horizontal long axis view and vertical long axis view. TID: 1.08 SSS: 4 SDS: 4 EF: 60 1. No significant ischemia or infarction noted on SPECT images 2. Normal left ventricular size, ejection fraction 60% Copy Copies To 1: CANELO GREWAL BASHAR J MD Aug 08, 2022 12:21
== END ==
LOC: CARD 06:44
PROVIDERS: ATTEND Internal Medicine
DX: R07.89 Other chest pain (principal)
CPT/HCPCS: 78452; 93017; A9502